=== PATIENT | male | born 1950 | race Caucasian/White ===

== ENCOUNTER 2024-01-30 13:53 | Outpatient (AMB) | payer OTHER, SELFPAY ==
--- NOTE | 2024-01-30 13:58 | MHC.PC.OV ---
Vital Signs 01/30/24 14:01 Height 5 ft 8.27 in Weight 188 lb BMI 28.4 BP 126/60 Blood Pressure Location Rt brachial Position Sitting Respiration 12 Pulse 74 Pulse Source Pulse Oximeter Temp 98.8 F Temp Source Oral Pulse Oximetry (%) 94 Oxygen Delivery Method Room Air Intake Visit Reasons: [employer]ER- Establish care Tobacco use date assessed: 01/30/24 Fall risk assessment: No Falls in past year Last assessed Fall Risk: 01/30/24 Dental Screening Dental Screen Date: 01/30/24 Did you have a dental visit in the last 12 months?: Yes Did you have a dental problem in the last 6 months where you did not have access to dental care?: No Was dental information given to patient?: Patient has dentist HPI HPI Comments History of Present Illness Details This is a 73-year-old male with a past medical history of carotid and vertebral artery stenosis, psoriasis, BPH, JUAN on CPAP, hypertension and hyperlipidemia presenting to transfer from [facility] where he last saw Dr. Albright. Patient endorses fatigue, shortness of breath and mild lightheadedness with exertion over the past year. It has been worse the last couple of months. He says he had COVID-19 in November this year for the 3rd time. It felt like a cold. When he is going up stairs he gets very tired at the top, pants and has mild lightheadedness. It goes away after a few seconds when he stops. Patient says he went to [facility] 09/20/23 after he was working out at the [facility] and was lightheaded and nearly passed out. He said his head went down for a few seconds and when he picked it back up he did not know where he was. He walked to the locker room and then after a few minutes felt back to normal. He contacted his PCP office who directed him to go to the ER. At the hospital he had a CTA which showed moderate stenosis of the right carotid artery and mild stenosis of the left carotid artery and moderate to severe stenosis of the vertebral arteries. He was referred to vascular, but then his insurance changed. Since then he works out, but he avoids that weight machine, and he decreased his weight and avoids cardio. He was started on atorvastatin and baby aspirin. He has not had his lipid profile rechecked since then. He recalls having a negative stress echo a few years ago at [facility]. Occasionally sees mild swelling of his ankles. No palpitations. No cough, wheeze or sputum production. He had a negative chest x-ray at the ER. Nonsmoker. He has a family history of heart disease. Reports PSA within normal during the past 6 months. Colonoscopy up-to-date per patient. No blood in stools, abdominal pain, nausea, vomiting or diarrhea. Tamsulosin works well for BPH. He would like to see if he can stop hydrochlorothiazide. He gets up twice a night to urinate. He is compliant with 50 mg of losartan daily. He monitors blood pressure at home. JUAN-compliant with CPAP. He got a new machine last year. His shipping technician is Dr. Clements. He has an appointment next week. He was told overnight oxygen study was low, and he was prescribed an oxygen machine, but he did not start it because it was never discussed with him. ROS: Constitutional: No unexplained weight loss, fever, chills or night sweats. Eyes: No vision changes, blurry vision, double vision, eye pain, eye redness, eye discharge. ENT: No hearing loss, sneezing, congestion, runny nose or sore throat. Respiratory: see HPI. cough or sputum production. Cardiovascular: No chest pain, chest pressure or chest discomfort. No palpitations. Gastrointestinal: No anorexia, nausea, vomiting or diarrhea. No abdominal pain or blood in stool. Genitourinary: No dysuria, hematuria, urinary frequency. Neurologic: No headache, unilateral weakness, ataxia, numbness or tingling in the extremities. Hematologic/Lymphatics: No bleeding or bruising. Physical exam: Constitutional: Alert, in no distress. Head: Normocephalic. Eyes: Pupils are equal, round and reactive to light. Extraocular muscles intact. Neck: Supple, Full range of motion. No lymphadenopathy. No palpable thyroid masses. Respiratory: Clear to auscultation. Cardiovascular: S1 S2 regular. No murmurs. Gastrointestinal: Abdomen soft, non-tender, non-distended. Normal bowel sounds. No palpable masses. Neurologic: No focal neurological deficits. Extremities: Warm and well perfused. No clubbing, cyanosis or edema. 3+ peripheral pulses bilaterally. Psychiatric: Normal mood and affect [facility] Medical History (Updated 01/30/24 @ 15:12 by CAM Hansen) Lightheaded SMITH (dyspnea on exertion) Seasonal allergic rhinitis due to pollen JUAN on CPAP Psoriasis BPH (benign prostatic hyperplasia) Vertebral artery stenosis Bilateral carotid artery stenosis Pure hypercholesterolemia Essential hypertension Social History Housing: House Patient Tobacco Use Status: Former Tobacco user Cigarette Packs Per Day: 1 Years Smoked: 15 years, hasnt smoked since mid 80s e-Cigarette/Vaping Use: Never Used Second Hand Smoke Exposure: No service: No Current occupational status: retired Cognitive needs: No Hearing needs: No Vision needs: Yes (glasses) Questionnaire AUDIT C Alcohol Use Questionnaire (AUDIT-C) 1. How often do you have a drink containing alcohol?: 4 or more times a week 2. How many drinks containing alcohol do you have on a typical day when you are drinking?: 1 or 2 3. How often do you have six or more drinks on one occasion?: Never Total Score: 4 Physical exam (Primary Care) Vital Signs: Last Vital Signs Temp 98.8 F 01/30/24 14:01 Pulse 74 01/30/24 14:01 Resp 12 01/30/24 14:01 BP 126/60 01/30/24 14:01 Pulse Ox 94 01/30/24 14:01 Oxygen Delivery Method Room Air 01/30/24 14:01 BMI result Body Mass Index 28.4 Tobacco/Smoking Status: Tobacco use Status Tobacco use date assessed 01/30/24 01/30/24 14:05 Patient Tobacco Use Status Former Tobacco user 01/30/24 14:05 e-Cigarette/Vaping Use Never Used 01/30/24 14:05 Office Procedures EKG Details: EKG shows sinus rhythm with first-degree AV block, 61 beats per minute, left axis deviation. Reviewed by [id number], Complete Assessment and Plan Assessment & Plan (1) SMITH (dyspnea on exertion): Code(s): R06.09 - Other forms of dyspnea (2) Essential hypertension: Code(s): I10 - Essential (primary) hypertension (3) Pure hypercholesterolemia: Code(s): E78.00 - Pure hypercholesterolemia, unspecified (4) Bilateral carotid artery stenosis: Code(s): I65.23 - Occlusion and stenosis of bilateral carotid arteries (5) BPH (benign prostatic hyperplasia): Code(s): N40.0 - Benign prostatic hyperplasia without lower urinary tract symptoms Qualifiers: Lower urinary tract symptom presence: symptoms present Lower urinary tract symptom detail: urinary frequency Qualified Code(s): N40.1 - Benign prostatic hyperplasia with lower urinary tract symptoms; R35.0 - Frequency of micturition (6) JUAN on CPAP: Code(s): G47.33 - Obstructive sleep apnea (adult) (pediatric) Plan Dyspnea on exertion, lightheadedness with exertion While carotid artery stenosis might explain lightheadedness it does not explain panting at the top of the steps and decreased stamina. Ordered echocardiogram and nuclear stress test for evaluation. Consider referral to Cardiology pending results. Check labs including BNP and D-dimer. Patient has pulmonology appointment next week. Advised to discuss this with him as well to see if he would like to get PFT done or wait on cardiac testing. Warning signs warranting ER evaluation reviewed including worsening dyspnea, worsening lightheadedness or development of chest pain. Hypertension Stop hydrochlorothiazide. Increase losartan to 75 mg. If blood pressures are above 130/80 increase losartan to 100 mg. Hyperlipidemia LDL goal less than 70. Continue aspirin and atorvastatin. Check fasting lipid profile. Carotid artery stenosis, vertebral artery stenosis Referred to vascular surgeon. Continue statin and baby aspirin. BPH Continue tamsulosin. Follow up in 6 weeks. Orders: Orders Complete Blood Count Auto Diff Today E78.00 - Pure hypercholesterolemia, unspecified, G47.33 - Obstructive sleep apnea (adult) (pediatric), I10 - Essential (primary) hypertension, I65.23 - Occlusion and stenosis of bilateral carotid arteries, N40.0 - Benign prostatic hyperplasia without lower urinary tract symptoms, R06.09 - Other forms of dyspnea Lipid Panel Today E78.00 - Pure hypercholesterolemia, unspecified, G47.33 - Obstructive sleep apnea (adult) (pediatric), I10 - Essential (primary) hypertension, I65.23 - Occlusion and stenosis of bilateral carotid arteries, N40.0 - Benign prostatic hyperplasia without lower urinary tract symptoms, R06.09 - Other forms of dyspnea D Dimer High Sensitivity Today R06.09 - Other forms of dyspnea, R42 - Dizziness and giddiness B Type Natriuretic Peptide Today R06.09 - Other forms of dyspnea, R42 - Dizziness and giddiness AMB EKG-In Office Today R06.09 - Other forms of dyspnea Comprehensive Met. Panel Today E78.00 - Pure hypercholesterolemia, unspecified, G47.33 - Obstructive sleep apnea (adult) (pediatric), I10 - Essential (primary) hypertension, I65.23 - Occlusion and stenosis of bilateral carotid arteries, N40.0 - Benign prostatic hyperplasia without lower urinary tract symptoms, R06.09 - Other forms of dyspnea TSH reflex Free T4 Today E66.9 - Obesity, unspecified, E78.00 - Pure hypercholesterolemia, unspecified, G47.33 - Obstructive sleep apnea (adult) (pediatric), I10 - Essential (primary) hypertension, I65.23 - Occlusion and stenosis of bilateral carotid arteries, N40.0 - Benign prostatic hyperplasia without lower urinary tract symptoms, R06.09 - Other forms of dyspnea CA stress test Today R06.09 - Other forms of dyspnea CA echo transthoracic complete Today R06.09 - Other forms of dyspnea Referrals Vascular Surgery Referral I65.09 - Occlusion and stenosis of unspecified vertebral artery, I65.23 - Occlusion and stenosis of bilateral carotid arteries Coding Level of Care Code New Pt Level 4 (08039) Complex EM visit Add On G2211 Diagnoses SMITH (dyspnea on exertion) R06.09 Essential hypertension I10 Pure hypercholesterolemia E78.00 Bilateral carotid artery stenosis I65.23 Benign prostatic hyperplasia with urinary frequency N40.1; R35.0 Lower urinary tract symptom presence: symptoms present Lower urinary tract symptom detail: urinary frequency JUAN on CPAP G47.33 CPT Codes EKG - CPT: 12297-[id number], Complete ([id number])
[2024-01-30 14:01] VITALS: BP 126/60; PULSE 74; RESP 12; TEMP 37.1; O2SAT 94; BMI 28.4
== END 2024-01-30 15:09 | disposition home or self-care (01) ==
PROVIDERS: PCP Physician Assistant Medical; Visit Provider Physician Assistant Medical
DX: R06.09 Other forms of dyspnea (principal); I10 Essential (primary) hypertension; E78.00 Pure hypercholesterolemia, unspecified; I65.23 Occlusion and stenosis of bilateral carotid arteries; N40.1 Benign prostatic hyperplasia with lower urinary tract symptoms; R35.0 Frequency of micturition; G47.33 Obstructive sleep apnea (adult) (pediatric)
CPT/HCPCS: 93000; 99204; G2211

== ENCOUNTER 2024-02-03 08:33 | Outpatient (REF) | payer OTHER, SELFPAY ==
[2024-02-03 11:10] LABS: MANUAL DIFF FLAG NO
[2024-02-03 11:19] LABS: Basophils Percent Auto 0.5 % (0-2); Eosinophils Absolute Auto 0.2 X10*3/uL (0.0-0.4); Hematocrit 38.6 % (42.0-52.0); Hemoglobin 13.3 g/dl (14.0-18.0); Imm Gran Abs Auto 0.02 X10*3/uL (0.00-0.03); Imm Gran Pct Auto 0.3 % (0.0-0.4); Lymphocytes Percent Auto 33.4 % (20-40); Mean Corpuscular HGB Conc 34.5 g/dl (31.0-36.0); Mean Corpuscular Hemoglobin 31.7 pg (27.0-33.0); Mean Corpuscular Volume 92.1 fL (80.0-98.0); Monocytes Absolute Auto 0.5 X10*3/uL (0.1-1.2); Monocytes Percent Auto 9.1 % (2-11); Neutrophils Absolute Auto 3.2 x10*3/uL (2.0-8.3); Neutrophils Percent Auto 53.7 % (45-73); Platelet Count 210 X10*3/uL (160-400); Red Blood Count 4.19 X10*6/uL (4.60-5.80); Red Cell Distribution Width 13.2 % (11.0-16.0); White Blood Count 5.9 X10*3/uL (4.8-10.8)
[2024-02-03 11:24] LABS: D Dimer High Sensitivity 168 NG/ML
[2024-02-03 11:39] LABS: Alanine Aminotransferase 15 U/L (0-40); Albumin Level 4.1 g/dL (3.5-5.0); Alkaline Phosphatase 62 U/L (39-117); Anion Gap 12 (12-20); Aspartate Amino Transferase 19 U/L (5-37); Bilirubin Total 0.9 mg/dL (0.0-1.0); Blood Urea Nitrogen 19 mg/dL (9-16); Calcium 9.2 mg/dL (8.4-10.2); Carbon Dioxide 26 mmol/L (22-29); Chloride 105 mmol/L (96-108); Cholesterol 164 mg/dL (<200); Estimated Glomerular Filt Rate > 60; Glucose Random 99 mg/dL (60-115); HDL Cholesterol 65 mg/dL (>40); LDL Cholesterol Calculated 82 mg/dL (<100); Potassium 4.2 mmol/L (3.3-5.1); Sodium 139 mmol/L (135-145); Total Protein 6.6 g/dL (6.5-8.0); Triglycerides 86 mg/dL (<150)
[2024-02-03 11:50] LABS: B Type Natriuretic Peptide 65 pg/mL (<100)
[2024-02-03 11:56] LABS: TSH reflex Free T4 2.24 uIU/mL (0.32-4.0)
== END 2024-02-03 08:34 | disposition home or self-care (01) ==
LOC: HO.WFDLDS 08:33
PROVIDERS: Visit Provider Physician Assistant Medical
DX: R06.09 Other forms of dyspnea (principal); I65.23 Occlusion and stenosis of bilateral carotid arteries; E78.00 Pure hypercholesterolemia, unspecified; I10 Essential (primary) hypertension; N40.0 Benign prostatic hyperplasia without lower urinary tract symptoms; G47.33 Obstructive sleep apnea (adult) (pediatric); E66.9 Obesity, unspecified; R42 Dizziness and giddiness
CPT/HCPCS: 36415; 80053; 80061; 83880; 84443; 85025; 85379

== ENCOUNTER 2024-03-11 09:08 | Outpatient (REF) | payer OTHER, SELFPAY ==
[2024-03-11 11:31] LABS: Baso%MD 0.7 %; Eos%MD 2.5 %; Hematocrit 38.6 % (42.0-52.0); Hemoglobin 13.1 g/dl (14.0-18.0); IG%MD 0.2 %; Lymph%MD 27.6 %; Mean Corpuscular HGB Conc 33.9 g/dl (31.0-36.0); Mean Corpuscular Hemoglobin 31.4 pg (27.0-33.0); Mean Corpuscular Volume 92.6 fL (80.0-98.0); Mean Platelet Volume 10.1 fL (9.4-12.4); Mono%MD 7.9 %; Neut%MD 61.1 %; Platelet Count 197 X10*3/uL (160-400); Red Blood Count 4.17 X10*6/uL (4.60-5.80); Red Cell Distribution Width 12.8 % (11.0-16.0); White Blood Count 6.1 X10*3/uL (4.8-10.8)
[2024-03-11 11:53] LABS: Iron 111 mcg/dL (45-160); Percent Iron Saturation 46 % (15-50); Total Iron Binding Capacity 240 mcg/dL (228-428); Unsaturated Iron Binding 129 ug/dL
[2024-03-11 12:06] LABS: Basophils Abs Manual 0.1 X10*3/uL (0.0-0.2); Basophils Percent Manual 2 % (0-2); Eosinophils Absolute Manual 0.2 X10*3/uL (0.0-0.4); Eosinophils Percent Manual 3 % (0-4); Lymphocytes Absolute Manual 1.8 X10*3/uL (1.2-4.9); Lymphocytes Percent Manual 29 % (20-40); Monocytes Absolute Manual 0.2 X10*3/uL (0.1-1.2); Monocytes Percent Manual 4 % (2-11); Neutrophils Percent Manual 62 % (45-73)
[2024-03-11 12:07] LABS: Platelet Estimate NORMAL (NORMAL); Platelet Morphology Comment NORMAL; RBC Morphology NORMAL
[2024-03-11 12:13] LABS: Ferritin 152 ng/mL (20-250)
[2024-03-11 12:25] LABS: Folate 9.3 ng/mL (> or = 4.0); Vitamin B12 431 pg/mL (200-900)
[2024-03-11 12:32] LABS: Band Neutrophils Percent 0 % (3-5); Neutrophils Absolute Manual 3.8 X10*3/uL (2.0-8.3)
== END 2024-03-11 09:09 | disposition home or self-care (01) ==
LOC: HO.WFDLDS 09:08
PROVIDERS: Visit Provider Physician Assistant Medical
DX: D64.9 Anemia, unspecified (principal); Z12.5 Encounter for screening for malignant neoplasm of prostate
CPT/HCPCS: 36415; 82607; 82728; 82746; 83540; 84153; 85007; 85027

== ENCOUNTER 2024-03-23 11:36 | Outpatient (AMB) | payer OTHER, SELFPAY ==
--- NOTE | 2024-03-23 11:45 | MHC.PC.OV ---
Vital Signs 03/23/24 11:47 Height 5 ft 9.88 in Weight 194 lb 4 oz BMI 28.0 BP 130/60 Blood Pressure Location Rt brachial Position Sitting Respiration 12 Pulse 62 Pulse Source Pulse Oximeter Temp 97.7 F Temp Source Tympanic Pulse Oximetry (%) 98 Oxygen Delivery Method Room Air Intake Visit Reasons: follow up SMITH Intake Note: follow uo for SMITH and labs Allergies No Known Allergies Allergy (Verified 03/23/24 11:45) Tobacco use date assessed: 01/30/24 Dental Screening Dental Screen Date: 01/30/24 HPI HPI Comments History of Present Illness Details This is a 73-year-old male with a past medical history of carotid and vertebral artery stenosis, psoriasis, BPH, JUAN on CPAP, hypertension and hyperlipidemia presenting for follow up. When I saw him initially he reported fatigue, shortness of breath and mild lightheadedness with exertion over the past year. Patient says he went to [facility] 09/20/23 after he was working out at the [facility] and was lightheaded and nearly passed out. He said his head went down for a few seconds and when he picked it back up he did not know where he was. He walked to the locker room and then after a few minutes felt back to normal. He contacted his PCP office who directed him to go to the ER. At the hospital he had a CTA which showed moderate stenosis of the right carotid artery and mild stenosis of the left carotid artery and moderate to severe stenosis of the vertebral arteries. He was referred to vascular, but then his insurance changed. I referred him anew, and he has an appointment. He was started on atorvastatin and baby aspirin. I increased his dose of Atorvastatin from 20 mg to 40 mg to target LDL <70. He recalls having a negative stress echo a few years ago at [place]. He says this was ordered due to aching pain in his upper back that only occurs when he starts exerting himself (biking or other exercise). This is still happening. It goes away if he keeps exercising. Occasionally sees mild swelling of his ankles. No palpitations. No cough, wheeze or sputum production. He had a negative chest x-ray at the ER. Nonsmoker. He has a family history of heart disease. He was not contacted to schedule the echo or stress test ordered. We stopped his HCTZ after out appointment due to nocturia. Since doing this, the dizziness, fatigue and mild SMITH resolved with exertion. He did a vigorous hike and symptoms did not return. Labs showed he is mildly anemia. Negative for iron/b12/folate deficiency. Colonoscopy up-to-date per patient. No blood in stools, abdominal pain, nausea, vomiting or diarrhea. He's had pain in the lower back and into the lateral hips for about 6 weeks. Worse with sitting. Better with standing and laying down. He just saw a chiropractor, and it helped after the last visit, but the pain came back. The chiropractor told him it may take up to 6 visits to treat. No trauma or weakness. Tamsulosin works well for BPH. He is compliant with 75 mg of losartan daily. He monitors blood pressure at home. JUAN-compliant with CPAP. He got a new machine last year. His electrolysis operator is Dr. Clements. ROS: Constitutional: No unexplained weight loss, fever, chills or night sweats. Eyes: No vision changes, blurry vision, double vision, eye pain, eye redness, eye discharge. ENT: No hearing loss, sneezing, congestion, runny nose or sore throat. Respiratory: Denies SOB, cough or sputum production. Cardiovascular: No chest pain, chest pressure or chest discomfort. No palpitations. Gastrointestinal: No anorexia, nausea, vomiting or diarrhea. No abdominal pain or blood in stool. Genitourinary: No dysuria, hematuria, urinary frequency. Neurologic: No headache, unilateral weakness, ataxia, numbness or tingling in the extremities. Hematologic/Lymphatics: No bleeding or bruising. Physical exam: Constitutional: Alert, in no distress. Head: Normocephalic. Eyes: Pupils are equal, round and reactive to light. Extraocular muscles intact. Neck: Supple, Full range of motion. No lymphadenopathy. No palpable thyroid masses. Respiratory: Clear to auscultation. Cardiovascular: S1 S2 regular. No murmurs. Gastrointestinal: Abdomen soft, non-tender, non-distended. Normal bowel sounds. No palpable masses. MSK: FROM. No midline spinal tenderness or tenderness to the hips. Negative SLRs. LE strength 5/5 bilaterally. Neurologic: No focal neurological deficits. Extremities: Warm and well perfused. No clubbing, cyanosis or edema. 3+ peripheral pulses bilaterally. Psychiatric: Normal mood and affect [facility] Medical History (Updated 02/04/24 @ 11:16 by CAM Hansen) Mild anemia Lightheaded SMITH (dyspnea on exertion) Seasonal allergic rhinitis due to pollen JUNA on CPAP Psoriasis BPH (benign prostatic hyperplasia) Vertebral artery stenosis Bilateral carotid artery stenosis Pure hypercholesterolemia Essential hypertension Social History Housing: House Patient Tobacco Use Status: Former Tobacco user Cigarette Packs Per Day: 1 Years Smoked: 15 years, hasnt smoked since mid e-Cigarette/Vaping Use: Never Used Second Hand Smoke Exposure: No service: No Current occupational status: retired Cognitive needs: No Hearing needs: No Vision needs: Yes (glasses) Physical exam (Primary Care) Vital Signs: Last Vital Signs Temp 97.7 F 03/23/24 11:47 Pulse 62 03/23/24 11:47 Resp 12 03/23/24 11:47 BP 130/60 03/23/24 11:47 Pulse Ox 98 03/23/24 11:47 Oxygen Delivery Method Room Air 03/23/24 11:47 BMI result Body Mass Index 28.0 Tobacco/Smoking Status: Tobacco use Status Tobacco use date assessed 01/30/24 03/23/24 11:50 Patient Tobacco Use Status Former Tobacco user 03/23/24 11:50 e-Cigarette/Vaping Use Never Used 03/23/24 11:50 Assessment and Plan Assessment & Plan (1) SMITH (dyspnea on exertion): Code(s): R06.09 - Other forms of dyspnea (2) Essential hypertension: Code(s): I10 - Essential (primary) hypertension (3) Pure hypercholesterolemia: Code(s): E78.00 - Pure hypercholesterolemia, unspecified (4) Bilateral carotid artery stenosis: Code(s): I65.23 - Occlusion and stenosis of bilateral carotid arteries (5) BPH (benign prostatic hyperplasia): Code(s): N40.0 - Benign prostatic hyperplasia without lower urinary tract symptoms Qualifiers: Lower urinary tract symptom presence: symptoms present Lower urinary tract symptom detail: urinary frequency Qualified Code(s): N40.1 - Benign prostatic hyperplasia with lower urinary tract symptoms; R35.0 - Frequency of micturition (6) Mild anemia: Code(s): D64.9 - Anemia, unspecified Plan Dyspnea on exertion, lightheadedness with exertion Patient says this resolved aftering stopping HCTZ. Reports history of upper back pain only with exertion. Had stress echo with his last provider at [place]. He is unsure he needs further testing regarding the echo and stress test I ordered, but he agreed to cardiology consult. Referred. Hypertension Continue losartan to 75 mg. Hyperlipidemia LDL goal less than 70. Continue aspirin and atorvastatin. Check fasting lipid profile with labs in 6 weeks. Carotid artery stenosis, vertebral artery stenosis Referred to vascular surgeon. Continue statin and baby aspirin. BPH Continue tamsulosin. Back pain He will continue treatment with the chiropractor, and if this does not resolve he will contact me for imaging orders for lumbar spine and hips. Anemia Mild. Will recheck in 6 weeks. If worsening this will need further evaluation. Request colonoscopy record from [facility]. Follow up in 8 weeks to review labs. Orders: Orders Lipid Panel 6 Weeks D64.9 - Anemia, unspecified, E78.00 - Pure hypercholesterolemia, unspecified, I65.09 - Occlusion and stenosis of unspecified vertebral artery Complete Blood Count Auto Diff Today D64.9 - Anemia, unspecified, E78.00 - Pure hypercholesterolemia, unspecified, I65.09 - Occlusion and stenosis of unspecified vertebral artery Referrals Cardiology Referral E78.00 - Pure hypercholesterolemia, unspecified, I10 - Essential (primary) hypertension, I20.89 - Other forms of angina pectoris, I65.23 - Occlusion and stenosis of bilateral carotid arteries Coding Level of Care Code Est Pt Level 4 (67449) Complex EM visit Add On G2211 Diagnoses SMITH (dyspnea on exertion) R06.09 Essential hypertension I10 Pure hypercholesterolemia E78.00 Bilateral carotid artery stenosis I65.23 Benign prostatic hyperplasia with urinary frequency N40.1; R35.0 Lower urinary tract symptom presence: symptoms present Lower urinary tract symptom detail: urinary frequency Mild anemia D64.9
[2024-03-23 11:47] VITALS: BP 130/60; PULSE 62; RESP 12; TEMP 36.5; O2SAT 98; BMI 28.0
== END 2024-03-23 12:15 | disposition home or self-care (01) ==
PROVIDERS: PCP Physician Assistant Medical; Visit Provider Physician Assistant Medical
DX: R06.09 Other forms of dyspnea (principal); I10 Essential (primary) hypertension; E78.00 Pure hypercholesterolemia, unspecified; I65.23 Occlusion and stenosis of bilateral carotid arteries; N40.1 Benign prostatic hyperplasia with lower urinary tract symptoms; R35.0 Frequency of micturition; D64.9 Anemia, unspecified
CPT/HCPCS: 99214

== ENCOUNTER 2024-04-16 10:26 | Outpatient (REF) | payer MEDICARE, SELFPAY ==
--- NOTE | ~2024-04-16 | XR_ITS ---
EXAMINATION: XR PELVIS AND BILATERAL HIPS XR LUMBOSACRAL SPINE CLINICAL INFORMATION: Pain in right hip, low back pain. COMPARISON: None available. TECHNIQUE: AP view of the pelvis, 2 views of each hip, and 3 views of the lumbar spine. FINDINGS: AP PELVIS AND BILATERAL HIPS: Diffuse demineralization. Advanced degenerative changes in the bilateral hips with medial loss of the joint space, subchondral sclerosis and hypertrophic change, right greater than left. Moderate degenerative changes in bilateral sacroiliac joints. LUMBOSACRAL SPINE: Mild dextroscoliosis of the lumbosacral spine. Facet arthritis in lower lumbar spine. Atherosclerotic aortic calcifications. Multilevel lumbar spondylosis. Moderate loss of disc space height at L4-L5. Cnczygfv-jb-xnbrgb loss of disc space height at L5-S1. XR/XR hip BI w PEL1V IMPRESSION: 1. Advanced degenerative changes of bilateral hips, right greater than left. 2. Multilevel lumbar spondylosis most notable at L4-L5 and L5-S1. 3. Facet arthritis in the lower lumbar spine. 4. Diffuse demineralization. Electronically signed by: Rima Ryan MD 05/13/2024 04:59 AM EDT
--- NOTE | ~2024-04-16 | XR_ITS ---
EXAMINATION: XR PELVIS AND BILATERAL HIPS XR LUMBOSACRAL SPINE CLINICAL INFORMATION: Pain in right hip, low back pain. COMPARISON: None available. TECHNIQUE: AP view of the pelvis, 2 views of each hip, and 3 views of the lumbar spine. FINDINGS: AP PELVIS AND BILATERAL HIPS: Diffuse demineralization. Advanced degenerative changes in the bilateral hips with medial loss of the joint space, subchondral sclerosis and hypertrophic change, right greater than left. Moderate degenerative changes in bilateral sacroiliac joints. LUMBOSACRAL SPINE: Mild dextroscoliosis of the lumbosacral spine. Facet arthritis in lower lumbar spine. Atherosclerotic aortic calcifications. Multilevel lumbar spondylosis. Moderate loss of disc space height at L4-L5. Dzutsolg-ue-xmhqjc loss of disc space height at L5-S1. XR/XR lumbar spine 2-3V IMPRESSION: 1. Advanced degenerative changes of bilateral hips, right greater than left. 2. Multilevel lumbar spondylosis most notable at L4-L5 and L5-S1. 3. Facet arthritis in the lower lumbar spine. 4. Diffuse demineralization. Electronically signed by: Rima Ryan MD 05/13/2024 04:59 AM EDT
[2024-04-16 10:46] LABS: MANUAL DIFF FLAG NO
[2024-04-16 10:59] LABS: Basophils Percent Auto 0.6 % (0-2); Eosinophils Absolute Auto 0.2 X10*3/uL (0.0-0.4); Eosinophils Percent Auto 2.6 % (0-4); Hematocrit 38.5 % (42.0-52.0); Hemoglobin 13.5 g/dl (14.0-18.0); Imm Gran Abs Auto 0.02 X10*3/uL (0.00-0.03); Imm Gran Pct Auto 0.3 % (0.0-0.4); Lymphocytes Absolute Auto 1.5 X10*3/uL (1.2-4.9); Lymphocytes Percent Auto 24.1 % (20-40); Mean Corpuscular HGB Conc 35.1 g/dl (31.0-36.0); Mean Corpuscular Hemoglobin 31.8 pg (27.0-33.0); Mean Corpuscular Volume 90.8 fL (80.0-98.0); Mean Platelet Volume 9.7 fL (9.4-12.4); Monocytes Absolute Auto 0.5 X10*3/uL (0.1-1.2); Monocytes Percent Auto 7.3 % (2-11); Neutrophils Percent Auto 65.1 % (45-73); Platelet Count 193 X10*3/uL (160-400); Red Blood Count 4.24 X10*6/uL (4.60-5.80); Red Cell Distribution Width 13.1 % (11.0-16.0); White Blood Count 6.2 X10*3/uL (4.8-10.8)
[2024-04-16 11:23] LABS: Anion Gap 11 (12-20); Blood Urea Nitrogen 23 mg/dL (9-16); Calcium 9.4 mg/dL (8.4-10.2); Carbon Dioxide 29 mmol/L (22-29); Chloride 106 mmol/L (96-108); Cholesterol 156 mg/dL (<200); Estimated Glomerular Filt Rate > 60; Glucose Random 119 mg/dL (60-115); HDL Cholesterol 62 mg/dL (>40); Iron 111 mcg/dL (45-160); LDL Cholesterol Calculated 80 mg/dL (<100); Percent Iron Saturation 46 % (15-50); Potassium 4.2 mmol/L (3.3-5.1); Sodium 142 mmol/L (135-145); Total Iron Binding Capacity 243 mcg/dL (228-428); Triglycerides 74 mg/dL (<150); Unsaturated Iron Binding 132 ug/dL
[2024-04-16 11:30] LABS: Rheumatoid Factor < 13.0 IU/mL (<15.0)
[2024-04-16 11:46] LABS: Erythrocyte Sedimentation Rate 5 MM/HR (0-15)
[2024-04-16 12:01] LABS: Folate 8.5 ng/mL (> or = 4.0); Vitamin B12 408 pg/mL (200-900)
[2024-04-18 06:34] LABS: Lyme Abs Screen <0.90 index
[2024-04-21 08:14] LABS: Anti Nuclear Antibody Screen NEGATIVE (NEGATIVE)
[2024-04-23 00:59] LABS: VITAMIN D (1,25 OH) D3 39 pg/mL; Vit D (1,25-Dihydroxy) Total 39 pg/mL (18-72); Vitamin D (1,25 OH) D2 <8 pg/mL
== END 2024-04-16 10:27 | disposition home or self-care (01) ==
LOC: HO.LAB 10:26
PROVIDERS: PCP Physician Assistant Medical; Visit Provider Physician Assistant Medical
DX: D64.9 Anemia, unspecified (principal); I65.09 Occlusion and stenosis of unspecified vertebral artery; E78.00 Pure hypercholesterolemia, unspecified; M25.551 Pain in right hip; M25.552 Pain in left hip; M54.50 Low back pain, unspecified
CPT/HCPCS: 36415; 72100; 73521; 80048; 80061; 82550; 82607; 82652; 82746; 83540; 85025; 85652; 86038; 86431; 86617; 86618

== ENCOUNTER 2024-04-23 14:10 | Outpatient (AMB) | payer OTHER, SELFPAY ==
--- NOTE | 2024-04-23 14:18 | MHC.OFFVIS ---
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 Has no complaints. Patient states he had a dizzy spell in September and had an incidental finding on a CT scan. Started blood pressure medication and dizziness went away. 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 At the ER the CTA revealed moderate stenosis of the QIANA (60%) and mild of the LICA (<20%). There was also moderate to severe stenosis of the vertebral arteries. He was referred to vascular at the time; however, his insurance changed as well as his PCP. He has since been discontinued off of the HCTZ he was on for BP (and the dizziness and lightheadedness went away). He was also started on a baby ASA and Atorvastatin 20mg, now increased to 40mg. He is a former smoker, quit >40y but was a 1ppd for appx 15y. He is not a diabetic. He does use CPAP nightly for JUAN and is followed by Pulmonology. He does stay active but has been having low back pain radiating down his right leg which has hindered his activity. He denies any lightheadedness, dizziness, weakness, stroke-like symptoms. [facility] Medical History Bilateral hip pain Low back pain Mild anemia Lightheaded SMITH (dyspnea on exertion) Seasonal allergic rhinitis due to pollen JUAN on CPAP Psoriasis BPH (benign prostatic hyperplasia) Vertebral artery stenosis Bilateral carotid artery stenosis Pure hypercholesterolemia Essential hypertension Social History Housing: House Patient Tobacco Use Status: Former Tobacco user Cigarette Packs Per Day: 1 Years Smoked: 15 years, hasnt smoked since mid s e-Cigarette/Vaping Use: Never Used Second Hand Smoke Exposure: No service: No Current occupational status: retired Cognitive needs: No Hearing needs: No Vision needs: Yes (glasses) Review of Systems Const Reports as per HPI and Denies weakness ENT Reports Normal hearing present and Denies dizziness Card Reports as per HPI, Denies chest pain, Denies chest pain at rest, Denies chest pain with activity, Denies dyspnea and Denies dyspnea on exertion Resp Reports as per HPI, Denies cough, Denies dyspnea and Denies dyspnea on exertion GI Reports as per HPI, Denies abdominal pain, Denies nausea and Denies vomiting Musc Denies numbness Skin/Breast Reports as per HPI, Denies erythema and Denies wounds Neuro Reports Normal hearing present, Denies dizziness, Denies numbness, Denies Sensory deficit (Neuro) and Denies weakness Psych Reports no additional complaints Endo Reports no additional complaints Physical Exam Const General: healthy appearing and no acute distress Orientation/consciousness: patient oriented x3 HEENT Head: Yes normal to inspection Ears: hearing grossly normal bilaterally Mouth: Normal oral and palatal mucosa present Resp Effort & Inspection: normal respiratory effort and able to speak in complete sentences Auscultation: clear to auscultation bilaterally Cardio Jugular venous distension: no JVD Rate: regular rate Rhythm: regular rhythm Heart sounds: S1 normal heart sound present and S2 normal heart sound present Bruits: no abdominal aortic bruits, no carotid bruits, no femoral bruits and no renal bruits Peripheral pulses: Peripheral pulses 2+ throughout GI Inspection: Yes normal to inspection Palpation (GI): No Abdominal aortic bruit present Skin General skin exam: no rashes or lesions noted Wounds: no wounds Hair: normal Neuro General: patient oriented x3 Cranial nerves: Yes CN's II-XII intact bilaterally and Yes Normal hearing present Cognition (Neuro): normal cognition Gait exam (Neuro): Normal gait present Motor exam (neuro): 5/5 motor strength present throughout Sensory Exam: No Sensory deficit (Neuro) Extrem General: Yes normal to inspection, Yes full ROM, Yes capillary refill normal and Yes normal gait Assessment & Plan Assessment & Plan (1) Bilateral carotid artery stenosis: Code(s): I65.23 - Occlusion and stenosis of bilateral carotid arteries Category: Medical Plan Leonel was seen today after being referred by his PCP Beatris Ayers with concerns of bilateral carotid artery stenosis. He had a near syncopal episode while working out on 09/20/23; he was bending down and became very lightheaded. A CTA at the ER revealed moderate stenosis of the QIANA and mild stenosis of the LICA with moderate to severe stenosis of the vertebral arteries. He was referred to Vascular but had changes in Insurance and PCP and it was not completed. He has since not had any issues with dizziness or lightheadedness since his PCP changed his BP medication (HCTZ to Losartan). He currently remains on a baby ASA daily. He is currently off of the statin; he has some myalgias and the PCP is making sure the statin is not causing the myalgias; he has only been off of the statin for 3d. He will reach out to her in 4d and they will decide to get back on the statin or discontinue it. We discussed the importance of physical activity; at this point he continues to have LBP with radiation down his right leg, he goes for an MRI next week. He states he has not been able to walk/work out like he usually can. We discussed the importance of diet and physical activity. We discussed that we will order a duplex US of bilateral carotids for further imaging. We will then follow up with him in the office 1-2w after. Thank you for allowing us to assist in his care. If there are any questions or concerns, please do not hesitate to contact us. Orders: Orders US carotid duplex BI 1 Week I65.23 - Occlusion and stenosis of bilateral carotid arteries Coding Level of Care Code New Pt New Pt Level 4 (30291) Patient Type New Diagnoses Bilateral carotid artery stenosis I65.23 Time Spent (min) 40
== END 2024-04-23 14:50 | disposition home or self-care (01) ==
PROVIDERS: PCP Physician Assistant Medical; Visit Provider Physician Assistant Surgical
DX: I65.23 Occlusion and stenosis of bilateral carotid arteries (principal)
CPT/HCPCS: 99204

== ENCOUNTER → 2024-04-23 14:10 | Outpatient (BNVA) | payer OTHER, SELFPAY | PROVIDERS: PCP Physician Assistant Medical; Visit Provider Surgery Vascular Surgery ==

== ENCOUNTER 2024-04-29 07:51 | Outpatient (REF) | payer OTHER, SELFPAY ==
--- NOTE | ~2024-04-29 | MR_ITS ---
EXAMINATION: MR LUMBAR SPINE WITHOUT CONTRAST CLINICAL INFORMATION: Low back pain COMPARISON: Number spine x-ray on 04/16/2024 TECHNIQUE: MRI of the lumbar spine was obtained using routine sequences without contrast. FINDINGS: The visualized lumbar vertebrae are intact with normal alignment. No focal bone lesion with abnormal signal can be seen. Evaluation of the intervertebral discs show: T12/L1: Intervertebral disc height is normal, with normal T2 signal. No focal disc herniation is seen. Bilateral T12/L1 neuroforamina are patent. Bilateral apophyseal joints are intact with normal alignment. L-1/L-2: Intervertebral disc height is normal, with normal T2 signal. No focal disc herniation is seen. Bilateral L1-L2 neuroforamina are patent. Bilateral apophyseal joints are intact with normal alignment. L2/L3: Intervertebral disc height is normal, with normal T2 signal. No focal disc herniation is seen. Bilateral L2-L3 neuroforamina are patent. Bilateral apophyseal joints are intact with normal alignment. L3/L4: Intervertebral disc height is normal, with moderate loss of T2 signal. There is mild asymmetric left posterior disc protrusion is seen. Bilateral L3-L4 neuroforamina are patent. Bilateral apophyseal joints are intact with normal alignment. L4/L5: Intervertebral disc height is moderately decreased, with moderate loss of T2 signal. Marked posterior and right foraminal disc protrusion is seen. There is moderate asymmetric right L4-L5 neural foraminal stenosis. There is severe spinal stenosis due to additional impingement by hypertrophic ligamentum flavum. Bilateral apophyseal joints are intact with normal alignment. A large epidural space occupying lesion is seen completely effacing the right lateral recess along right posterior border of L4 extending from L4-L5 junction down to L5-S1 junction, measuring 1.0 cm in AP diameter, 1.7 cm in width, 3.7 cm in vertical height. L5/S1: Intervertebral disc height is markedly decreased, with mild loss of T2 signal. Mild posterior disc protrusion is seen. Bilateral L5-S1 neuroforamina are patent. Bilateral apophyseal joints are intact with normal alignment. Conus medullaris is seen normally at L1 level. MR/MR lumbar spine wo con IMPRESSION: 1. Severe spinal stenosis at L4-L5 due to marked posterior and right foraminal disc protrusion and impingement by hypertrophic ligamentum flavum. 2. A large epidural space occupying lesion is seen completely effacing the right lateral recess along right posterior border of L4. Findings could represent large extruded disc fragment or epidural tumor such as meningioma or metastatic tumor. Further evaluation with contrast-enhanced MRI of lumbar spine is recommended. 3. Moderate asymmetric right L4-L5 neural foraminal stenosis. 4. Moderate degenerative disc disease at L3-L4 and L5-S1, mild asymmetric left posterior L3-L4 disc protrusion. Electronically signed by: Maryjo Mcadams MD 05/25/2024 10:53 AM EST
[2024-04-29 09:11] LABS: D Dimer High Sensitivity 205 NG/ML
== END 2024-04-29 07:52 | disposition home or self-care (01) ==
LOC: HO.MRI 07:51
PROVIDERS: PCP Physician Assistant Medical; Visit Provider Physician Assistant Medical
DX: M54.50 Low back pain, unspecified (principal); M48.061 Spinal stenosis, lumbar region without neurogenic claudication
CPT/HCPCS: 36415; 72148; 82550; 85379

== ENCOUNTER 2024-05-05 10:16 | Outpatient (REF) | payer MEDICARE, SELFPAY ==
--- NOTE | ~2024-05-05 | US_ITS ---
EXAMINATION: US EXTRACRANIAL CAROTID DUPLEX, BILATERAL CLINICAL INFORMATION: Carotid stenosis COMPARISON: None available. TECHNIQUE: Real-time ultrasound and Doppler techniques (integrating B-mode 2-D vascular images, Doppler spectral analysis and color-flow Doppler imaging) were utilized to interrogate the extracranial carotid arteries, the vertebral arteries and proximal subclavian arteries bilaterally. The degree of stenosis is determined by criteria similar to NASCET. FINDINGS: Right Side: 1. There is mild to moderate atherosclerotic plaque seen in the bifurcation/proximal ICA region. 2. The common carotid artery PSV proximally is 102 cm/s and distally 91.5 cm/s. 3. The proximal internal carotid artery velocities are 77.8 cm/s systolic and 8 cm/s diastolic. 4. The proximal external carotid artery PSV is 221 cm/s. 5. The vertebral artery shows antegrade flow. 6. The subclavian artery waveforms are normal. Left Side: 1. There is mild to moderate atherosclerotic plaque seen in the bifurcation/proximal ICA region. 2. The common carotid artery PSV proximally is 138 cm/s and distally 127 cm/s. 3. The proximal internal carotid artery velocities are 92.0 cm/s systolic and 19.9 cm/s diastolic. 4. The proximal external carotid artery PSV is 200 cm/s. 5. The vertebral artery shows antegrade flow. 6. The subclavian artery waveforms are normal. US/US carotid duplex BI IMPRESSION: 1. RIGHT: Minimal, non-hemodynamically significant stenosis of the proximal right internal carotid artery corresponding to a 0-49% stenosis by velocity criteria. 2. LEFT: Minimal, non-hemodynamically significant stenosis of the proximal left internal carotid artery corresponding to a 0-49% stenosis by velocity criteria. Electronically signed by: Edi Rico MD 05/13/2024 10:18 AM EDT
== END 2024-05-05 10:17 | disposition home or self-care (01) ==
LOC: HO.US 10:16
PROVIDERS: PCP Physician Assistant Medical; Visit Provider Physician Assistant Surgical
DX: I65.23 Occlusion and stenosis of bilateral carotid arteries (principal)
CPT/HCPCS: 93880

== ENCOUNTER 2024-05-18 15:11 | Outpatient (AMB) | payer MEDICARE, SELFPAY ==
--- NOTE | 2024-05-18 15:06 | A.OFFPC_ITS ---
Intake Visit Reasons: review labs / cholesterol med FU Intake Note: Follow up labs Biometrician Required: No Allergies No Known Allergies Allergy (Verified 05/18/24 15:06) Tobacco use date assessed: 01/30/24 Dental Screening Dental Screen Date: 01/30/24 [facility] HPI Comments History of Present Illness Details This is a 73-year-old male with a past medical history of JUAN on CPAP, psoriasis, BPH, vertebral artery stenosis, bilateral carotid artery stenosis, hyperlipidemia and hypertension presenting to follow up on his results. The patient continues to have numbness in his right foot, pain in his right calf and some hip and back pain though it is significantly improved since taking NSAIDs and stopping atorvastatin due to elevated creatinine kinase. After he stopped taking the medication creatinine kinase decreased from 214-175 with normal being 174 U/L. D-dimer is negative. Lyme, RF, LUIS FERNANDO, vitamin-D also normal 04/16/2024. He is taking meloxicam 15 mg in the morning and 2 [id number] naproxen pills at night. We discussed his x-rays which showed advanced bilateral hip arthritis worse on the right than the left and multilevel degenerative changes in the spine with loss of the disc height at L5-S1 and L4- L5. Patient had an MRI of the lumbar spine done, but Radiology is back logged so the report is not available yet. He would like to see [facility] about the hip arthritis. The x-rays also showed demineralization of the bones, and he is agreeable to bone density exam. He has an appointment with vascular surgery next week. He is currently off atorvastatin. He is still taking a baby aspirin. Patient reports he has been on tamsulosin since he was a patient at [facility] for BPH. I asked if he has had a prostate exam, and he says that he has not, and he has not seen Urology. He has urinary frequency, urgency, nocturia which improved after stopping his thiazide diuretic. He will also have this sensation of bladder fullness and incomplete emptying. ROS: Constitutional: No unexplained weight loss, fever, chills, fatigue or night sweats. Gastrointestinal: No nausea, vomiting, diarrhea or abdominal pain Genitourinary: No dysuria, hematuria or pelvic pain. Neurologic: No loss of bowel or bladder control, footdrop or weakness Musculoskeletal: see [facility] Medical History Bilateral hip pain Low back pain Mild anemia Lightheaded SMITH (dyspnea on exertion) Seasonal allergic rhinitis due to pollen JUAN on CPAP Psoriasis BPH (benign prostatic hyperplasia) Vertebral artery stenosis Bilateral carotid artery stenosis Pure hypercholesterolemia Essential hypertension Social History Housing: House Patient Tobacco Use Status: Former Tobacco user Cigarette Packs Per Day: 1 Years Smoked: 15 years, hasnt smoked since mid s e-Cigarette/Vaping Use: Never Used Second Hand Smoke Exposure: No service: No Current occupational status: retired Cognitive needs: No Hearing needs: No Vision needs: Yes (glasses) Physical exam (Primary Care) Tobacco/Smoking Status: Tobacco use Status Tobacco use date assessed 01/30/24 05/18/24 15:08 Patient Tobacco Use Status Former Tobacco user 05/18/24 15:08 e-Cigarette/Vaping Use Never Used 05/18/24 15:08 Telehealth Telehealth Telehealth Platform: Telephone Location of provider rendering services: practice address Location of patient: address on file Patient Identification confirmed using: Name, : Yes Telehealth method: voice only Patient verbally consented to treatment: Yes Patient verbally consented to billing insurance company: Yes Patient informed of any privacy concerns related to visit: Yes Minutes spent on Phone/Video with Pt.: 15 Coding Level of Care Code Tele Est Pt Level 4 (00312) Diagnoses Pure hypercholesterolemia E78.00 Bilateral carotid artery stenosis I65.23 Benign prostatic hyperplasia with urinary frequency N40.1; R35.0 Lower urinary tract symptom presence: symptoms present Lower urinary tract symptom detail: urinary frequency Low back pain M54.50 Bilateral primary osteoarthritis of hip M16.0 Assessment & Plan Assessment & Plan (1) Pure hypercholesterolemia: Code(s): E78.00 - Pure hypercholesterolemia, unspecified Category: Medical (2) Bilateral carotid artery stenosis: Code(s): I65.23 - Occlusion and stenosis of bilateral carotid arteries Category: Medical (3) BPH (benign prostatic hyperplasia): Code(s): N40.0 - Benign prostatic hyperplasia without lower urinary tract symptoms Category: Medical Qualifiers: Lower urinary tract symptom presence: symptoms present Lower urinary tract symptom detail: urinary frequency Qualified Code(s): N40.1 - Benign prostatic hyperplasia with lower urinary tract symptoms; R35.0 - Frequency of micturition (4) Low back pain: Code(s): M54.50 - Low back pain, unspecified Category: Medical (5) Bilateral primary osteoarthritis of hip: Code(s): M16.0 - Bilateral primary osteoarthritis of hip Category: Medical Plan I recommended a trial of rosuvastatin in place of atorvastatin and monitoring for side effects. Patient would like to wait until he sees vascular surgery next week which is reasonable. Continue baby aspirin and recommended Mediterranean diet and avoidance of smoking and alcohol. I ordered a bone density exam to assess for possible osteopenia and osteoporosis given findings on x-ray. Patient can stop tamsulosin and try alfuzosin ER 10 mg daily. Side effects reviewed with the patient. Referred to Urology at [facility]. Advised patient to stop taking meloxicam in the morning and take naproxen twice daily instead with food. Recent renal function tests normal. Side effects reviewed with the patient. Refer to [facility] for bilateral osteoarthritis of the hips. We discussed referral to relations specialist/PT once MRI result is available. Orders: Orders XR DEXA axial skeleton Today M85.80 - Other specified disorders of bone density and structure, unspecified site Referrals Orthopedics Referral M16.0 - Bilateral primary osteoarthritis of hip Urology Referral N40.1 - Benign prostatic hyperplasia with lower urinary tract symptoms, R35.0 - Frequency of micturition Medications: New alfuzosin ER Replaces Tamulosin. Administer after the same meal each day 10 mg PO DAILY 9 0 tabs 0RF Discontinued meloxicam Discontinued Reason: Doctor's Order 15 mg PO DAILY 30 tabs 0RF
== END 2024-05-18 16:43 | disposition home or self-care (01) ==
LOC: HO.HMCFM 15:12
PROVIDERS: PCP Physician Assistant Medical; Visit Provider Physician Assistant Medical
DX: E78.00 Pure hypercholesterolemia, unspecified (principal); I65.23 Occlusion and stenosis of bilateral carotid arteries; N40.1 Benign prostatic hyperplasia with lower urinary tract symptoms; R35.0 Frequency of micturition; M54.50 Low back pain, unspecified; M16.0 Bilateral primary osteoarthritis of hip

== ENCOUNTER 2024-05-26 09:22 | Outpatient (AMB) | payer MEDICARE, SELFPAY ==
--- NOTE | 2024-05-26 09:24 | MHC.OFFVIS ---
Vital Signs 05/26/24 09:25 05/26/24 09:29 Height 5 ft 9 in Weight 194 lb 4 oz BMI 28.7 BP 132/80 132/78 Blood Pressure Location Lt brachial Rt brachial Position Sitting Intake Visit Reasons: follow up s/p Carotid US 05/05/24 Intake Note: Leonel is a 73 year old male who presents to the office today for a follow up s/p Carotid US 05/05/24. Pt states he is overall feeling well and denies any concerns at this time. Allergies No Known Allergies Allergy (Verified 05/26/24 09:25) HPI HPI follow up s/p Carotid US 05/05/24: Details: Leonel is presenting today as a follow-up to his carotid ultrasound, performed on 05/05. He initially was seen due to dizziness/syncope and CTA in the ER revealed moderate stenosis of the QIANA and LICA. He states he has been doing much better and has not had any incidents of dizziness/lightheadedness/syncope. He is back to the gym regularly. He continues on ASA daily but is not on a statin (due to myagias). He continues with LBP and recently had an MRI, which revealed a pinched nerve and other things, per the pt. He will be following up with Dr Hernandes. [facility] Medical History (Updated 05/25/24 @ 17:14 by CAM Hansen) Lumbar spinal stenosis Spinal cord lesion Bilateral primary osteoarthritis of hip Bilateral hip pain Low back pain Mild anemia Lightheaded SMITH (dyspnea on exertion) Seasonal allergic rhinitis due to pollen JUAN on CPAP Psoriasis BPH (benign prostatic hyperplasia) Vertebral artery stenosis Bilateral carotid artery stenosis Pure hypercholesterolemia Essential hypertension Social History Housing: House Patient Tobacco Use Status: Former Tobacco user Cigarette Packs Per Day: 1 Years Smoked: 15 years, hasnt smoked since mid 80s e-Cigarette/Vaping Use: Never Used Second Hand Smoke Exposure: No service: No Current occupational status: retired Cognitive needs: No Hearing needs: No Vision needs: Yes (glasses) Review of Systems Const Reports as per HPI and Denies weakness ENT Reports Normal hearing present and Denies dizziness Card Reports as per HPI, Denies chest pain, Denies chest pain at rest, Denies chest pain with activity, Denies dyspnea and Denies dyspnea on exertion Resp Reports as per HPI, Denies cough, Denies dyspnea and Denies dyspnea on exertion GI Reports as per HPI, Denies abdominal pain, Denies nausea and Denies vomiting Musc Denies numbness Skin/Breast Reports as per HPI, Denies erythema and Denies wounds Neuro Reports Normal hearing present, Denies dizziness, Denies numbness, Denies Sensory deficit (Neuro) and Denies weakness Psych Reports no additional complaints Endo Reports no additional complaints Physical Exam Vital Signs: Last Vital Signs BP 132/78 05/26/24 09:29 BMI result Body Mass Index 28.7 Const General: healthy appearing and no acute distress Orientation/consciousness: patient oriented x3 HEENT Head: Yes normal to inspection Ears: hearing grossly normal bilaterally Mouth: Normal oral and palatal mucosa present Resp Effort & Inspection: normal respiratory effort and able to speak in complete sentences Auscultation: clear to auscultation bilaterally Cardio Jugular venous distension: no JVD Rate: regular rate Rhythm: regular rhythm Heart sounds: S1 normal heart sound present and S2 normal heart sound present Bruits: no abdominal aortic bruits, no carotid bruits, no femoral bruits and no renal bruits Peripheral pulses: Peripheral pulses 2+ throughout GI Inspection: Yes normal to inspection Palpation (GI): No Abdominal aortic bruit present Skin General skin exam: no rashes or lesions noted Wounds: no wounds Hair: normal Neuro General: patient oriented x3 Cranial nerves: Yes Normal hearing present Cognition (Neuro): normal cognition Gait exam (Neuro): Normal gait present Motor exam (neuro): 5/5 motor strength present throughout Sensory Exam: No Sensory deficit (Neuro) Extrem General: Yes normal to inspection, Yes full ROM, Yes capillary refill normal and Yes normal gait Results Reviewed Results Reviewed: Bilateral Carotid US: Right - minimal, non-hemodynamically significant stenosis of the proximal QIANA corresponding to a 0-49% stenosis by velocity criteria Left - minimal, non-hemodynamically significant stenosis of the proximal LICA corresponding to a 0-49% stenosis by velocity criteria Assessment & Plan Assessment & Plan (1) Bilateral carotid artery stenosis: Code(s): I65.23 - Occlusion and stenosis of bilateral carotid arteries Category: Medical Plan: Meals presenting today for follow up to his carotid ultrasound on May 05. He remains asymptomatic. He states he has not had any episodes of dizziness, lightheadedness, or syncopal episodes. He states he is back to the gym regularly and is eating a healthy well-balanced diet. He continues on his daily aspirin. He is unable to tolerate statins due to myalgias. He states his last cholesterol levels included a total cholesterol of 165, LDL at the 80, and HDL at over 50. We discussed continuing the well-balanced diet and physical activity. It will be up to his primary care about adding a cholesterol-lowering medication; however, his levels appear within normal limits at this point. We reviewed the results of the carotid ultrasound which revealed minimal stenosis at 0-49%. At this point, we will follow up with him in 1 year. We will order a follow up ultrasound and see him in the office after that. He does have a significant amount of other medical problems at this point which he states he would like to get taken care of. He is in agreement of the 1 year follow-up; we initially discussed a six-month follow up but asked if he could push it out to a year. We discussed signs and symptoms of stroke and if he had any other concerns with dizziness or lightheadedness, he can reach out to us at any point. If there are any questions or concerns, please do not hesitate to reach out to us. Orders: Orders US carotid duplex BI 1 Year I65.23 - Occlusion and stenosis of bilateral carotid arteries Coding Level of Care Code Established Pt Est Pt Level 4 (38658) Patient Type Established Diagnoses Bilateral carotid artery stenosis I65.23 Comment Review of recent carotid ultrasound
[2024-05-26 09:25] VITALS: BP 132/80; BMI 28.7
[2024-05-26 09:29] VITALS: BP 132/78
== END 2024-05-26 09:53 | disposition home or self-care (01) ==
PROVIDERS: PCP Physician Assistant Medical; Visit Provider Physician Assistant Surgical
DX: I65.23 Occlusion and stenosis of bilateral carotid arteries (principal)
CPT/HCPCS: 99214

== ENCOUNTER → 2024-05-26 09:22 | Outpatient (BNVA) | payer MEDICARE, SELFPAY | PROVIDERS: PCP Physician Assistant Medical; Visit Provider Physician Assistant Surgical | DX: I65.23 Occlusion and stenosis of bilateral carotid arteries (principal) | CPT/HCPCS: 99212 ==

== ENCOUNTER 2024-05-27 12:30 | Outpatient (AMB) | payer MEDICARE, SELFPAY ==
--- NOTE | 2024-05-27 12:51 | A.SPINEOV_ITS ---
Intake Visit Reasons: Urgent referral Intake Note: Mr. Chisholm is here today c/o right ankle and leg numbness. Media Specialist Required: No Allergies No Known Allergies Allergy (Verified 05/27/24 12:55) Assessment & Plan Assessment & Plan (1) Lumbar radiculopathy: Code(s): M54.16 - Radiculopathy, lumbar region Category: Medical Plan Dear CAM Ayers, Thank you for referring Leonel to our office today. He is a pleasant 73-year-old male who comes in today with a chief complaint of pain and numbness in his right lateral calf and the top of his right foot. In addition to this he reports some muscle weakness in the right calf, which he feels has been present since onset. He identifies an initial inciting incident on April 05 of leaning over his sink. He began experience severe low back pain. As the back pain began to subside he developed right foot and ankle numbness/weakness, accompanied by some right ankle pain. This has only partially restricted him in regards to ADLs and functionality. He finds it somewhat more difficult to walk and he is somewhat limited meaningful activities such as golfing. He currently takes naproxen for his pain. He is not taking any prescription medications for his pain. He has been to a chiropractor since this began, but felt it was only modestly helpful. He has not yet attempted physical therapy, and has not had cortisone injections. He denies any numbness/tingling in the perineum, and denies any bowel/bladder incontinence. PMH: Hypertension, BPH. History of carotid artery stenosis, reportedly resolved with statin use. Still takes 81 mg baby aspirin daily. Social hx: Patient does not smoke, reports no substance use. Medications: Losartan, alfuzosin, 81 mg baby aspirin. Allergies: NKDA. Physical exam: The patient has 2/5 strength with his right EHL. He has about 4/5 strength with right-sided dorsiflexion. The rest of his bilateral strength in his upper and lower extremities is 5/5. His reflexes are slightly hyperactive in his upper and lower extremities. (+) right-sided straight leg raise. (-) left-sided straight leg raise. (-) clonus, (-) Babinski's, (-) Barrett's. Imaging review: MRI of the lumbar spine completed here at [facility] shows a large posterior disc herniation at L4-5 migrating inferiorly towards the L5-S1 disc space. This is causing severe bilateral foraminal stenosis and central canal stenosis at L4 and severe central canal and right- sided foraminal stenosis at L5. Impression: Leonel is a pleasant 73-year-old male who comes in today with a chief complaint of right-sided calf/foot numbness and weakness with a intermittent pain component. He was evaluated alongside Dr. Hernandes today. His back pain has resolved since the initial inciting incident stated above which likely was the origin of his disc herniation. We have very low suspicion that this is a cancerous mass or growth. Instead we believe it is just a large disc herniation that has migrating inferiorly. Dr. Hernandes offered the patient a right-sided L4-5 microdiskectomy for removal of large disc herniation compressing the L4 and L5 nerves. We extensively discussed the likely outcomes of surgery including the potential for continued numbness/tingling/weakness despite surgical in terventions to help relieve pressure off of the nerve. We also discussed the limitations of conservative treatment to address this issue. He was educated on red flag symptoms such as perineal numbness and bowel/bladder incontinence which would warrant an immediate call to our office & a trip to the emergency department. After reviewing everything the patient would like to proceed with surgery. He is tentatively scheduled for June 18. Leonel was given risk and benefits of surgery including but not limited to infection, hematoma, nerve injury, durotomy, weakness, bowel/bladder injury, pe rsistent pain, as well as the option to continue with conservative treatment and patient wishes to proceed with surgery. They are aware they should stop NSAIDs 7 days prior to surgery. All questions were answered to the best of our ability. If there is anything about this patients medical history that we have overlooked or concerns you have about us proceeding with surgery we would appreciate any input you can offer. Thank you for allowing us to care for your patient. The total time spent with this visit with this patient was 45 minutes reviewing history, physical exam, MRI imaging review, and implementation of treatment plan or further diagnostic testing Darci Hernandes MD,PhD [facility] Coding Level of Care Code New Pt Level 4 (38091) Diagnoses Lumbar radiculopathy M54.16
== END 2024-05-27 14:00 | disposition home or self-care (01) ==
PROVIDERS: PCP Physician Assistant Medical; Referring Provider Physician Assistant Medical; Visit Provider Physician Assistant
DX: M54.16 Radiculopathy, lumbar region (principal)
CPT/HCPCS: 99204

== ENCOUNTER → 2024-05-27 12:30 | Outpatient (BNVA) | payer MEDICARE, SELFPAY | PROVIDERS: PCP Physician Assistant Medical; Referring Provider Physician Assistant Medical; Visit Provider Physician Assistant | DX: M54.16 Radiculopathy, lumbar region (principal) | CPT/HCPCS: 99202 ==

== ENCOUNTER 2024-06-22 10:26 | Outpatient (AMB) | payer MEDICARE, SELFPAY ==
--- NOTE | 2024-06-22 10:35 | MHC.OFFVIS ---
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 He has been experiencing back pain with some neurological symptoms in legs. He is being considered for minimally invasive surgery by Dr. Hernandes. He has known history of carotid stenosis and is currently asymptomatic from that. He is on baby aspirin. He has not tolerated statins at high dose in the past with myalgias. He is getting some upper back discomfort with activity and starts getting upper back discomfort when he exercises. He is saying that if he continues to exercise the pain goes away. Previously had stress testing few years ago at [facility] which reportedly was normal. He is on losartan 75 mg daily and blood pressure is mildly elevated. [facility] Medical History (Updated 06/22/24 @ 11:06 by Kenrick Tang MD) Numbness Osteoarthritis Former cigarette smoker Upper back pain Lumbar spinal stenosis Spinal cord lesion Bilateral primary osteoarthritis of hip Bilateral hip pain Low back pain Mild anemia Lightheaded SMITH (dyspnea on exertion) Seasonal allergic rhinitis due to pollen JUAN on CPAP Psoriasis BPH (benign prostatic hyperplasia) Vertebral artery stenosis Bilateral carotid artery stenosis Pure hypercholesterolemia Essential hypertension Surgical History Hx of bilateral inguinal hernia repair (~2019) Hx of colonoscopy Family History Father Cancer Heart attack Mother High blood pressure Social History (Updated 06/22/24 @ 10:48 by Belinda Cooper CMA) Household Members: Spouse Housing: House Are you a primary child care lead teacher to a significant other at home: No Do you presently have visiting nurse or other home services: No Alcohol intake: current Alcohol intake frequency: holidays/special occasions only Patient Tobacco Use Status: Former Tobacco user Cigarette Packs Per Day: 1 Years Smoked: 15 years, hasn't smoked since mid e-Cigarette/Vaping Use: Never Used Second Hand Smoke Exposure: No service: No Current occupational status: retired Cognitive needs: No Hearing needs: No Vision needs: Yes (glasses) Review of Systems Const Denies chills, Denies fatigue, Denies fever(s), Denies frequent falls, Denies weakness, Denies weight gain and Denies weight loss ENT Denies dizziness Card Denies chest pain, Denies leg edema, Denies lightheadedness, Denies palpitations, Denies dyspnea, Denies dyspnea on exertion and Denies orthopnea Resp Denies cough, Denies dyspnea and Denies dyspnea on exertion GI Denies bloating and Denies change in bowel habits Musc Denies muscle weakness, Denies numbness and Denies tingling Neuro Denies dizziness, Denies frequent falls, Denies numbness, Denies tingling and Denies weakness Endo Denies fatigue and Denies palpitations Physical Exam Vital Signs: Last Vital Signs Pulse 66 06/22/24 10:41 BP 140/70 H 06/22/24 10:41 GENERAL APPEARANCE: in no acute distress, pleasant. NECK: Bilateral carotid bruits, no jugular venous distention. SKIN: no suspicious lesions, warm and dry. HEART: no murmurs, regular rate and rhythm. LUNGS: clear to auscultation bilaterally. ABDOMEN: soft, nontender. EXTREMITIES: no edema. PERIPHERAL PULSES: equal. NEUROLOGIC: No gross deficits, AAO X 3 Assessment & Plan Assessment & Plan (1) Preop cardiovascular exam: Code(s): Z01.810 - Encounter for preprocedural cardiovascular examination Category: Medical (2) Bilateral carotid artery stenosis: Code(s): I65.23 - Occlusion and stenosis of bilateral carotid arteries Category: Medical Plan [age] year gentleman who is here for perioperative cardiac risk assessment. He has bilateral carotid stenosis. He is stable from carotid stenosis viewpoint. He is on baby aspirin. I have advised him that he should try Crestor at low dose once a week. If he can not tolerate it then we can change it to 3 times a week and eventually once a day. Given upper back discomfort with activity I have advised him to do an exercise stress test. We will also do an echocardiogram. Thank you for allowing me to participate in the care of your patient. Please feel free to contact me if you have any questions. Orders: Orders CA echo transthoracic complete Today Z01.810 - Encounter for preprocedural cardiovascular examination CA stress test Today Z01.810 - Encounter for preprocedural cardiovascular examination Coding Level of Care Code New Pt Level 4 (63053) Diagnoses Preop cardiovascular exam Z01.810 Bilateral carotid artery stenosis I65.23
[2024-06-22 10:41] VITALS: BP 140/70; PULSE 66
== END 2024-06-22 11:07 | disposition home or self-care (01) ==
PROVIDERS: PCP Physician Assistant Medical; Visit Provider Internal Medicine Cardiovascular Disease
DX: Z01.810 Encounter for preprocedural cardiovascular examination (principal); I65.23 Occlusion and stenosis of bilateral carotid arteries
CPT/HCPCS: 99204

== ENCOUNTER → 2024-06-22 10:26 | Outpatient (BNVA) | payer MEDICARE, SELFPAY | PROVIDERS: PCP Physician Assistant Medical; Visit Provider Internal Medicine Cardiovascular Disease | DX: Z01.810 Encounter for preprocedural cardiovascular examination (principal); I65.23 Occlusion and stenosis of bilateral carotid arteries | CPT/HCPCS: 99202 ==

== ENCOUNTER 2024-06-24 08:54 | Outpatient (REF) | payer MEDICARE, SELFPAY ==
--- NOTE | ~2024-06-24 | MM_ITS ---
EXAMINATION: BONE DENSITOMETRY CLINICAL INDICATION: Other specified disorders of bone density and structure, unspecified. COMPARISON: This is the patient's baseline examination. TECHNIQUE: Using a [employer] DXA System (software version: 13.1) manufactured by [employer], dual-energy x-ray absorptiometry was performed of the lumbar spine and left hip. The images are of good technical quality. Summary results are attached. FINDINGS: LEFT FEMUR, NECK: BMD 0.789 g/cm2, Z-score -1.0, T-score -2.2, osteopenia. LEFT FEMUR, TOTAL: BMD 0.869 g/cm2, Z-score -0.9, T-score -1.6, osteopenia. AP SPINE L1-L4: BMD 1.038 g/cm2, Z-score -1.2, T-score -1.5, osteopenia. IDENTIFIED RISK FACTORS: None listed. HISTORY OF FRACTURE: None listed. MEDICATIONS: None listed. MM/XR DEXA axial skeleton IMPRESSION: 1. DIAGNOSIS: Osteopenia based on the lowest T-score value of -2.2 in the femoral neck applying World Health Organization criteria. 2. 10-YEAR FRACTURE RISK PREDICTION, FRAX: Major osteoporotic fracture (clinical spine, forearm, hip or shoulder) 8.7%. Hip fracture 3.0%. 3. Treatment Recommendations: NOF guidelines recommend consideration for treatment in postmenopausal women and men age 50 and older presenting with the following: -A hip or vertebral (clinical or morphometric) fracture. -T-score less than or equal to -2.5 at the femoral neck or spine after appropriate evaluation to exclude secondary causes. -Low bone mass at the hip or spine and a 10-year fracture probability by FRAX of greater than or equal to 3% for hip fracture or greater than or equal to 20% for major osteoporotic fracture based on the [place] adapted WHO algorithm. 4. Other Recommendations: All treatment decisions require clinical judgment and consideration of individual patient factors, including patient preferences, comorbidities, previous drug use, risk factors not captured in the FRAX model (e.g. frailty, falls, vitamin D deficiency, increased bone turnover, interval significant decline in bone density) and possible under or overestimation of fracture risk by FRAX. Additional medical evaluation for secondary cause of low bone mineral density may be appropriate. FUTURE SCAN RECOMMENDATION: People with diagnosed cases of osteoporosis or at high risk for fracture should have regular bone mineral density tests. For patients eligible for Medicare, routine testing is allowed once every 2 years. The testing frequency can be increased to one year for patients who have rapidly progressing disease, those who are receiving or discontinuing medical therapy to restore bone mass, or have additional risk factors. Electronically signed by: Caleb Cain MD 06/24/2024 04:46 PM MARY VELAZQUEZ
== END 2024-06-24 08:55 | disposition home or self-care (01) ==
LOC: HO.MAMMO 08:54
PROVIDERS: PCP Physician Assistant Medical; Visit Provider Physician Assistant Medical
DX: Z13.820 Encounter for screening for osteoporosis (principal); M85.89 Other specified disorders of bone density and structure, multiple sites
CPT/HCPCS: 77080

== ENCOUNTER → 2024-06-30 14:41 | Outpatient (REF) | payer MEDICARE, SELFPAY ==
--- NOTE | 2024-06-30 14:43 | CA_ITS ---
Transthoracic Echocardiogram Patient (Last, First, Middle): Leonel Chisholm, Gender: Male Date of : 1950 Age: 74 Procedure Date: 06/30/2024 Procedure Type: Transthoracic Echocardiogram Location: OP Height: 175.26 cm Weight: 86.18 kg BSA: 2.02 m2 Heart Rate: bpm BP: 122 / 60 mmHg Bioinformatics Technician: Referring MD: Kenrick Tang MD B[employer]uitware Brusher: Kenrick Tang MD Symptoms: Z01.810 - Encounter for preprocedural cardiovascular examination Study Quality: Good ECG Rhythm: Sinus Conclusions: - Normal left ventricular size and systolic function. There is mildly increased left ventricular wall thickness. The visually estimated ejection fraction is between 55-60%. - Mildly increased right ventricular cavity size. There is normal right ventricular systolic function. Findings Left Ventricle Normal left ventricular size and systolic function. There is mildly increased left ventricular wall thickness. The visually estimated ejection fraction is between 55-60%. There is no evidence of regional wall motion abnormalities. Diastolic function is normal for age. Right Ventricle Mildly increased right ventricular cavity size. There is normal right ventricular systolic function. Atria The left atrium is normal in size. Aortic Valve There is a normal trileaflet aortic valve. There is mild calcification of the aortic valve. There is no aortic valve stenosis. There is no aortic valve regurgitation. Mitral Valve Normal mitral valve structure and function. There is no mitral valve regurgitation. There is no mitral valve stenosis. Pulmonic Valve The pulmonic valve is likely normal. Tricuspid Valve Normal tricuspid valve structure and function. There is no tricuspid valve regurgitation. Mildly elevated right atrial pressure. There is no evidence of pulmonary hypertension. Great Vessels There is mild dilatation of the ascending aorta measuring 3.60 cm. The visualized portions of the pulmonary artery and branches are normal. Venous The inferior vena cava is dilated and collapses greater than 50% with inspiration. Pericardium/Pleural There is no evidence of pericardial effusion. Prior Study Comparison No prior study available for comparison. Measurements 2D Linear Measurements IVSd: 1.22 0.6-0.9/0.6-1.0 cm LVIDd: 4.63 3.9-5.3/4.2-5.9 cm LVIDd Index: 2.29 2.4-3.2/2.2-3.1 cm/m2 LVIDs: 2.82 2.0-3.6 cm LVPWd: 1.21 0.7-1.1 cm Ao Root: 3.60 2.1-3.5 cm LA Diam: 4.00 2.7-3.8/3.0-4.0 cm LAIDs Index: 1.98 1.5-2.3 cm/m2 LV Mass: 262.75 67-162/88-224 g LV Mass Index: 130.07 43-95/49-115 g/m2 LVOT Diam: 2.20 3.0+(-)1.3 cm 2D Systolic Function EF 4C: 58.20 >55% EF 2C: 59.10 >55% EF BiP: 58.70 >55% Mitral Valve MV Pk E: 0.48 MV PK A: 0.90 MV Decel Time: 265.00 E/A: 0.50 E'Lateral: 7.07 E'Medial: 7.07 E/E' Med: 6.80 E/E' Lat: 6.80 PHT: 78.00 MVA PHT: 2.82 Decel [place]: 1.81 Aortic Valve AoV Pk Duong: 1.39 AoV Mn Duong: 0.92 AoV VTI: 0.36 AoV Pk Grad: 8.00 Aov Mn Grad: 4.00 ANGELINA Cont.VTI: 2.29 LVOT LVOT Pk Duong: 0.90 LVOT Mn Duong: 0.61 LVOT VTI: 0.21 LVOT Pk Grad: 3.00 LVOT Mn Grad: 2.00 LVOT Diam: 2.20 LVOT Area: 3.80 Diastolic Function MV Pk E: 0.48 MV Pk A: 0.90 E/A: 0.50 E'Medial: 7.07 E/E' Med: 6.80 E' Laterial: 7.07 E/E' Lat: 6.80 Right Ventricle TAPSE (mm): 34.00 TVS' Duong: 11.00 Tricuspid Valve TR Pk Duong: 2.31 TR Pk Grad: 21.00 RA Press: 3.00 RVSP: 24.00 Great Vessels Aorta Ao Root-2D: 3.60 2.0-3.7 cm Ao Asc: 3.60 2.1-3.4 cm Pulmonary Valve PV Pk Duong: 1.09 Peak PV Grad: 5.00 Updated in Other Vendor System with Status of Final Kenrick Tang MD electronically signed on 07/01/2024 2:40:09 PM with status of Final
== END ==
LOC: HO.CARD 14:41
PROVIDERS: PCP Physician Assistant Medical; Visit Provider Internal Medicine Cardiovascular Disease
DX: Z01.810 Encounter for preprocedural cardiovascular examination (principal)
CPT/HCPCS: 93306

== ENCOUNTER → 2024-06-30 14:43 | Outpatient (BNV) | payer MEDICARE, SELFPAY | PROVIDERS: PCP Physician Assistant Medical; Visit Provider Internal Medicine Cardiovascular Disease | DX: I35.8 Other nonrheumatic aortic valve disorders (principal) | CPT/HCPCS: 93306 ==

== ENCOUNTER → 2024-07-16 10:14 | Outpatient (REF) | payer MEDICARE, SELFPAY ==
--- NOTE | 2024-07-16 10:16 | CA_ITS ---
Acquisition Time: 2024-07-16 10:19:18 Total Exercise Time: 00:06:26 Test Indications: Screening for CAD Medications: ASA LORATADINE LOSARTAN ALFUZOSIN Protocol: ADELFO Max HR: 144 BPM 99% of Pred: 145 BPM Max BP: 138/058 mmHG Max Work Load: 7.6 METS Exercise Stress Test with exercise 6 mins 26 secs of Adelfo Protocol, achieving 98% MPHR, with reports of 2/10 mid chest tightness that started at Stage 2 and stayed consistent through the exercise, resolved quickly during recovery. With isolated PACs, frequent PVCs, and atrial runs- max 5 beats. With normotensive response to exercise. With borderline ST changes noted inferiorly, in leads I, V4 and V5; suggestive of ischemia (interpretation harder due to artifacts). Will order Exercise stress test with Nuclear imagings. Test reviewed with Dr. Qureshi. Referred By: Kenrick Tang Overread By: Alber Ryan
== END ==
LOC: HO.CARD 10:14
PROVIDERS: PCP Physician Assistant Medical; Visit Provider Internal Medicine Cardiovascular Disease
DX: Z01.810 Encounter for preprocedural cardiovascular examination (principal)
CPT/HCPCS: 93017

== ENCOUNTER → 2024-07-16 10:16 | Outpatient (BNV) | payer MEDICARE, SELFPAY | PROVIDERS: PCP Physician Assistant Medical | DX: I49.1 Atrial premature depolarization (principal); I49.3 Ventricular premature depolarization | CPT/HCPCS: 93016; 93018 ==

== ENCOUNTER 2024-07-22 12:05 | Outpatient (REF) | payer MEDICARE, SELFPAY ==
--- NOTE | ~2024-07-22 | US_ITS ---
EXAMINATION: US RETROPERITONEUM HISTORY: retention TECHNIQUE: Real-time grayscale ultrasound imaging of the kidneys was performed and images were reviewed. COMPARISON: There are no prior studies for comparison. FINDINGS: Right kidney: The right kidney measures 11.7 x 5.4 x 5.4 cm. Renal parenchymal echotexture and thickness are normal. There are no masses. There is no hydronephrosis or renal calculi. Left Kidney: The left kidney measures 9.8 x 5.3 x 5.9 cm. Renal parenchymal echotexture and thickness are normal. There is a 7 x 6 x 7 mm cyst at the lower pole demonstrating wall calcification. An additional 11 x 6 x 9 mm cyst is noted in the interpolar region. There is no hydronephrosis or renal calculi. The urinary bladder is unremarkable. Bilateral ureteral jets are identified. Before voiding, the urinary bladder measured 13.1 x 9.0 x 11.1 cm for an estimated volume of 688 mL. After voiding, the urinary bladder measured 8.4 x 6.3 x 6.7 cm for an estimated volume of 187 mL. The prostate is enlarged measuring 4.5 x 4.5 x 5.3 cm. Incidental note is made of mild aneurysmal dilatation of the abdominal aorta measuring up to 3.6 x 3.2 cm. There is a 10 mm hepatic cyst. US/US retroperitoneal comp IMPRESSION: 1. Left renal cysts as described, one of which demonstrates wall calcification. Follow-up is recommended. 2. Post void bladder residual of 187 mL. 3. 3.6 x 3.2 cm abdominal aortic aneurysm. Electronically signed by: Joaquin Reyes MD 07/24/2024 09:36 AM EST
== END 2024-07-22 12:06 | disposition home or self-care (01) ==
LOC: HO.US 12:05
PROVIDERS: PCP Physician Assistant Medical; Visit Provider Urology
DX: R33.8 Other retention of urine (principal); R39.12 Poor urinary stream
CPT/HCPCS: 76770

== ENCOUNTER → 2024-07-22 12:36 | Outpatient (BNV) | payer MEDICARE, SELFPAY | PROVIDERS: PCP Physician Assistant Medical; Visit Provider Radiology Diagnostic Radiology | DX: N28.1 Cyst of kidney, acquired (principal) | CPT/HCPCS: 76770 ==

== ENCOUNTER 2024-10-29 08:24 | Outpatient (AMB) | payer MEDICARE, SELFPAY ==
--- NOTE | 2024-10-29 08:29 | A.OFFPC_ITS ---
Vital Signs 10/29/24 08:34 Height 5 ft 9 in Weight 194 lb 4 oz BMI 28.7 BP 126/62 Blood Pressure Location Rt brachial Position Sitting Pulse 68 Pulse Source Pulse Oximeter Temp 97.9 F Temp Source Temporal Artery Scan Pulse Oximetry (%) 97 Oxygen Delivery Method Room Air Intake Visit Reasons: Annual PE - see comments Intake Note: Leonel presents in the office today for his annual physical. Devops Engineer Required: No Allergies Seasonal Allergies Allergy (Verified 10/29/24 08:31) Itchy eyes, runny nose Tobacco use date assessed: 10/29/24 Fall risk assessment: No Falls in past year Last assessed Fall Risk: 10/29/24 Dental Screening Dental Screen Date: 10/29/24 Did you have a dental visit in the last 12 months?: Yes Did you have a dental problem in the last 6 months where you did not have access to dental care?: No Was dental information given to patient?: Patient has dentist HPI HPI Comments History of Present Illness Details This is a 73-year-old male with a past medical history of JUAN on CPAP, psoriasis, BPH, vertebral artery stenosis, bilateral carotid artery stenosis, AAA, hyperlipidemia, hypertension and lumbar spinal stenosis presenting for a physical exam. Lumbar spinal stenosis-patient evaluated at neuro spine clinic. He is deferring surgery for now. He continues to have some numbness in his right foot and weakness in his right ankle, but he says it is getting better, and he is not having pain in his back or legs or feet. He saw Cardiology for preoperative risk assessment, He had an echocardiogram on 06/30/2024 which showed normal left ventricular ejection fraction and mildly increased right ventricular cavity size. He had a cardiac stress test with borderline EKG changes versus artifact which was reviewed by the business performance advisor, and he was cleared for surgery and nuclear stress test deferred. He denies chest pain or shortness of breath. During evaluation of this his creatinine kinase level went from 214 to 175 after he stopped taking his statin. He also discuss this with Cardiology, and they decided to hold off on restarting a statin at this time. D-dimer, Lyme, RF, LUIS FERNANDO negative. He has a follow up scheduled with vascular surgery in May for carotid artery stenosis. A 3.6 cm AAA was found on an ultrasound, and we reached out to see if the patient needs to be seen sooner for evaluation though we discussed that he probably can wait to be seen until May since it is small. He is taking baby aspirin. Hypertension is treated with losartan, and this is well-controlled. BPH and renal cysts are followed by urology. He had a retroperitoneal ultrasound completed on 07/22/2024 which demonstrated left renal cysts 1 of which demonstrated wall calcification. Tadalafil was added more recently. He is also on alfuzosin. Patient has a scan scheduled in November and a follow up with Urology in December to review results. He says that the tadalafil has decreased his urinary symptoms. JUAN-on CPAP. Followed by pulmonology. [facility]-patient reports last colonoscopy within ten years and was told to return in 10 years. Record requested from [facility]. Patient has a history of mild anemia with RBC, hemoglobin and hematocrit 4.19, 13.3 and 38.6 respectively on 02/03/2024. White blood cell count, platelet and differential normal. Blood work was repeated in 03/11/2024 with mild worsening of anemia, normal iron and ferritin and B12 and folate levels. In April labs were rechecked, and anemia improved with red blood cell count, hemoglobin and hematocrit of 4.24, 13.5 and 38.5 respectively. B12 and iron studies and folate remained normal. He denies increased fatigue, bleeding, bruising. He has increased iron rich sources in his diet. No fevers, chills, unexplained weight loss or night sweats. He has a dermatology visit annually, and this is scheduled in the fall. We discussed immunizations, and he is going to get the RSV vaccine at the pharmacy. ROS: Constitutional: No unexplained weight loss, fever, chills, fatigue or night sweats. Eyes: No vision changes, blurry vision, double vision, eye pain, eye redness, eye discharge. ENT: No hearing loss, sneezing, congestion, runny nose or sore throat. Respiratory: No shortness of breath, cough or sputum production. Cardiovascular: No chest pain, chest pressure or chest discomfort or palpitations. Gastrointestinal: No anorexia, nausea, vomiting or diarrhea. No abdominal pain or blood in stool. Genitourinary: No dysuria or hematuria. Neurologic: No headache, dizziness, syncope, ataxia, seizures, tremors. Musculoskeletal: See HPI Hematologic/Lymphatics: No bleeding or bruising. No painful lymph nodes. Skin: No rash or itching. Endocrine: No cold or heat intolerance. No polyuria or polydipsia. Psychiatric: No depression or anxiety. No SI/HI. Physical exam: Constitutional: Alert, in no distress. Head: Normocephalic. Eyes: Pupils are equal, round and reactive to light. Extraocular muscles intact. Ear, Nose and Throat: Canals clear. TMs normal. Normal nasal mucosa. No nasal discharge. No oral lesions. Neck: Supple, Full range of motion. No lymphadenopathy. No palpable thyroid masses. Respiratory: Clear to auscultation. Cardiovascular: S1 S2 regular. No murmurs. Gastrointestinal: Abdomen soft, non-tender, non-distended. Normal bowel sounds. No palpable masses. Neurologic: No focal neurological deficits. Symmetric patellar reflexes. Moves all extremities spontaneously. Sensation intact bilaterally. No foot drop. Skin: No rashes Musculoskeletal: No gross deformities. Normal range of motion. Extremities: Warm and well perfused. No clubbing, cyanosis or edema. Intact upper and lower extremity peripheral pulses. Psychiatric: Normal mood and affect [facility] Medical History (Updated 10/29/24 @ 09:56 by CAM Hansen) Routine physical examination Renal cyst, left Antibody response exam Abdominal aortic aneurysm Osteopenia Numbness Osteoarthritis Former cigarette smoker Upper back pain Lumbar spinal stenosis Spinal cord lesion Bilateral primary osteoarthritis of hip Bilateral hip pain Low back pain Mild anemia Lightheaded SMITH (dyspnea on exertion) Seasonal allergic rhinitis due to pollen JUAN on CPAP Psoriasis BPH (benign prostatic hyperplasia) Vertebral artery stenosis Bilateral carotid artery stenosis Pure hypercholesterolemia Essential hypertension Surgical History Hx of bilateral inguinal hernia repair (~2019) Hx of colonoscopy Family History Father Cancer Heart attack Mother High blood pressure Social History (Updated 10/29/24 @ 08:34 by Ligia Rocha MA) Household Members: Spouse Housing: House Are you a primary adult daycare coordinator to a significant other at home: No Do you presently have visiting nurse or other home services: No Alcohol intake: current Alcohol intake frequency: holidays/special occasions only Patient Tobacco Use Status: Former Tobacco user Cigarette Packs Per Day: 1 Years Smoked: 15 years, hasn't smoked since mid e-Cigarette/Vaping Use: Never Used Second Hand Smoke Exposure: No service: No Current occupational status: retired Cognitive needs: No Hearing needs: No Vision needs: Yes (glasses) Questionnaire PHQ-9 Over the last 2 weeks, how often have you been bothered by any of the following problems? 1. Little interest or pleasure in doing things: not at all 2. Feeling down, depressed, or hopeless: not at all 3. Trouble falling or staying asleep, or sleeping too much: not at all 4. Feeling tired or having little energy: not at all 5. Poor appetite or overeating: not at all 6. Feeling bad about yourself - or that you are a failure or have let yourself or your family down: not at all 7. Trouble concentrating on things, such as reading the newspaper or watching television: not at all 8. Moving or speaking so slowly that other people could have noticed. Or the opposite - being so fidgety or restless that you have been moving around a lot more than usual: not at all 9. Thoughts that you would be better off or of hurting yourself in some way: not at all Total score: 0 Depression Screening Interpretation: Negative Depression Screening Done: Yes 41362 - PHQ-9 Billing: Patient declined-do not bill Source: Developed by Drs. Joaquin Naranjo, Adenike Cummins, Mitchel Caldwell and colleagues, with an educational tj from [employer]. Thrive Questionnaire Date Thrive assessed: 10/29/24 I am a: Patient What is your living situation today?: I have a steady place to live Within the past 12 months, did the food you bought not last and you didn't have the money to get more?: Never true Within the past 12 months, did you worry whether your food would run out before you got money to buy more?: Never true Do you have trouble paying for medicines?: No Do you have trouble getting transportation to medical appointments?: No Do you have trouble paying your heating and electricity bill?: No Do you have trouble taking care of your child, family member or friend?: No Do you have trouble with day-to-day activities such as bathing, preparing meals, shopping, managing finances, etc.?: No Are you currently unemployed and looking for a job?: Yes Are you interested in more education?: No Please select the resources that you would like help with: None Currently or been in a relationship where the following occur: No concerns reported THRIVE Score: 0 AUDIT C Alcohol Use Questionnaire (AUDIT-C) 1. How often do you have a drink containing alcohol?: 4 or more times a week 2. How many drinks containing alcohol do you have on a typical day when you are drinking?: 1 or 2 3. How often do you have six or more drinks on one occasion?: Never Total Score: 4 BENJAMIN-7 AMB Questionnaire BENJAMIN-7 Date BENJAMIN - 7 assessed: 10/29/24 Feeling nervous, anxious, or on edge: 0 = Not at all Not being able to stop or control worryin = Not at all Worrying too much about different things: 0 = Not at all Trouble relaxin = Not at all Being so restless that it is hard to sit still: 0 = Not at all Becoming easily annoyed or irritable: 0 = Not at all Feeling afraid as if something awful might happen: 0 = Not at all Total BENJAMIN-7 score (0-4 normal; 5-9 mild; 10-14 moderate; 15-21 severe): 0 Source: Developed by Drs. Joaquin Naranjo, Adenike Cummins, Mitchel Caldwell and colleagues, with an educational tj from [employer]. BENJAMIN-7 Assessment Billing BENJAMIN-7 Assessment Tool: BENJAMIN-7 Assessment 71338 Physical exam (Primary Care) Vital Signs: Last Vital Signs Temp 97.9 F 10/29/24 08:34 Pulse 68 10/29/24 08:34 BP 126/62 10/29/24 08:34 Pulse Ox 97 10/29/24 08:34 Oxygen Delivery Method Room Air 10/29/24 08:34 BMI result Body Mass Index 28.7 Tobacco/Smoking Status: Tobacco use Status Tobacco use date assessed 01/30/24 06/19/24 08:49 Patient Tobacco Use Status Former Tobacco user 10/29/24 08:34 e-Cigarette/Vaping Use Never Used 10/29/24 08:34 Depression Screening Interpretation: Negative Currently or been in a relationship where the following occur: No concerns reported Coding Level of Care Code Est Pt Prev Care >65y(21169) Diagnoses Routine physical examination Z00.00 Renal cyst, left N28.1 Abdominal aortic aneurysm I71.40 Lumbar spinal stenosis M48.061 Mild anemia D64.9 JUAN on CPAP G47.33 Benign prostatic hyperplasia with urinary frequency N40.1; R35.0 Lower urinary tract symptom presence: symptoms present Lower urinary tract symptom detail: urinary frequency Bilateral carotid artery stenosis I65.23 Essential hypertension I10 Pure hypercholesterolemia E78.00 Additional Codes BENJAMIN-7 Assessment Billing - BENJAMIN-7 Assessment Tool: BENJAMIN-7 Assessment 37643 ([id number]) Assessment & Plan Assessment & Plan (1) Routine physical examination: Code(s): Z00.00 - Encounter for general adult medical examination without abnormal findings Category: Medical Plan: Patient is seen today for a routine physical. As part of this visit we reviewed the following issues, which are considered and essential part of preventative health in this age group: - Screening for colon cancer - records requested from [facility] - Discussed Prostate cancer screening- followed by Urology. PSA up-to-date and was normal. - Cholesterol screening - Nutritional and exercise counseling - Counseling of injury prevention including fire prevention, smoke alarms and seat belt usage - Screening for depression - Education about skin cancer - Recommendations about immunizations - Recommendation of an eye exam - Screening for substance abuse Patient requested MMR titer. Ordered. (2) Renal cyst, left: Code(s): N28.1 - Cyst of kidney, acquired Category: Medical Plan: Patient has a scan in November and we will follow up with Urology in December. (3) Abdominal aortic aneurysm: Code(s): I71.40 - Abdominal aortic aneurysm, without rupture, unspecified Category: Medical Plan: Avoid smoking. Blood pressure is well-controlled. Continue losartan. We will reach out to vascular to confirm it is okay to wait until the visit in May for his follow up appointment. (4) Lumbar spinal stenosis: Code(s): M48.061 - Spinal stenosis, lumbar region without neurogenic claudication Category: Medical Plan: Symptoms are stable. He defers surgery at this time. If his symptoms worsen he will contact the neuro spine clinic. (5) Mild anemia: Code(s): D64.9 - Anemia, unspecified Category: Medical Plan: Recheck labs. If anemia persists we will refer to Gastroenterology and consider referral to Hematology pending results. (6) JUAN on CPAP: Code(s): G47.33 - Obstructive sleep apnea (adult) (pediatric) Category: Medical Plan: Managed by pulmonology. (7) BPH (benign prostatic hyperplasia): Code(s): N40.0 - Benign prostatic hyperplasia without lower urinary tract symptoms Category: Medical Qualifiers: Lower urinary tract symptom presence: symptoms present Lower urinary tract symptom detail: urinary frequency Qualified Code(s): N40.1 - Benign prostatic hyperplasia with lower urinary tract symptoms; R35.0 - Frequency of micturition Plan: Managed by Urology. (8) Bilateral carotid artery stenosis: Code(s): I65.23 - Occlusion and stenosis of bilateral carotid arteries Category: Medical Plan: Continue baby aspirin. Patient was on a statin but had elevated creatinine kinase. He met with Cardiology, and they deferred additional medication for now. We will revisit this at his follow up appointment. (9) Essential hypertension: Code(s): I10 - Essential (primary) hypertension Category: Medical Plan: Well-controlled. Continue losartan. (10) Pure hypercholesterolemia: Code(s): E78.00 - Pure hypercholesterolemia, unspecified Category: Medical Plan: Recommended Mediterranean diet. See above notes. Plan Follow up in 6 months. Orders: Orders Vitamin D 25-OH (D2 and D3) Today D64.9 - Anemia, unspecified, E78.00 - Pure hypercholesterolemia, unspecified, I10 - Essential (primary) hypertension, I65.23 - Occlusion and stenosis of bilateral carotid arteries, M85.80 - Other specified disorders of bone density and structure, unspecified site Comprehensive Met. Panel Today D64.9 - Anemia, unspecified, E78.00 - Pure hypercholesterolemia, unspecified, I10 - Essential (primary) hypertension, I65.23 - Occlusion and stenosis of bilateral carotid arteries Complete Blood Count Auto Diff Today D64.9 - Anemia, unspecified, E78.00 - Pure hypercholesterolemia, unspecified, I10 - Essential (primary) hypertension, I65.23 - Occlusion and stenosis of bilateral carotid arteries MMR IgG Measles Mumps Rubella Today Z01.84 - Encounter for antibody response examination Vitamin B12 Today D64.9 - Anemia, unspecified, E78.00 - Pure hypercholesterolemia, unspecified, I10 - Essential (primary) hypertension, I65.23 - Occlusion and stenosis of bilateral carotid arteries, Z91.89 - Other specified personal risk factors, not elsewhere classified IRON PROFILE Today D64.9 - Anemia, unspecified, E78.00 - Pure hypercholesterolemia, unspecified, I10 - Essential (primary) hypertension, I65.23 - Occlusion and stenosis of bilateral carotid arteries Ferritin Today D64.9 - Anemia, unspecified, E78.00 - Pure hypercholesterolemia, unspecified, I10 - Essential (primary) hypertension, I65.23 - Occlusion and stenosis of bilateral carotid arteries
[2024-10-29 08:34] VITALS: BP 126/62; PULSE 68; TEMP 36.6; O2SAT 97; BMI 28.7
--- OUTSIDE RECORDS SUMMARY | 2024-10-29 08:44 | XMS_ITS | Encounter Summary ---
Author Organization [facility] Address [address] [place] [address] Care Team Providers Care Coordinate Measuring Equipment Operator Name Role Phone Betty Romero MD Primary Care Provider Un available Carl Albright Primary Care Provider [phone] Encounter Details Date Type Department Care Team Description 12/14/2014 Transfer Records Medical Records [address] [place] [address] Abstract, Provider Social History Tobacco Use Types Packs/Day Years Used Date Smoking Tobacco: Former Cigarettes 1 20 Smokeless Tobacco: Never Alcohol Use Standard Drinks/Week Comments Yes 0 (1 standard drink = 0.6 oz pur e alcohol) 2 whiskey or beer per day Alcohol Habits Answer Date Recorded How often do you have a drin k containing alcohol? 4 or more times a week 10/03/2020 How many drinks containing a lcohol do you have on a typical day when you are drinking? 1 or 2 10/03/2020 How often do you have six or more drinks on one occasion? Not asked Sex Assigned at Date Recorded Male 02/18/2023 7:25 PM E DT Job Start Date Occupation Industry Not on file Not on file Not on file documented as of this encounter Plan of Treatment Not on file documented as of this encounter Visit Diagnoses Not on filedocumented in this encounter Care Teams Coordinate Measuring Equipment Operator Relationship Specialty Start Date End Date Betty Romero MD PCP - General Internal Medicine 07/15/14 Carl Albright [address] [place], [place] [phone] PCP - General Internal Medicine 11/07/21 documented as of this encounter
--- OUTSIDE RECORDS SUMMARY | 2024-10-29 08:44 | XMS_ITS | Encounter Summary ---
Author Organization [facility] Address [address] [place] [address] Care Team Providers Care Centralized Traffic Control Operator Name Role Phone Carl Albright Primary Care Provider [phone] Encounter Details Date Type Department Care Team Description 11/13/2022 Release of Information Medical Records [address] [place] [address] [facility] Social History Tobacco Use Types Packs/Day Years Used Date Smoking Tobacco: Former Cigarettes 1 20 Smokeless Tobacco: Never Alcohol Use Standard Drinks/Week Comments Yes 0 (1 standard drink = 0.6 oz pur e alcohol) 1 cocktail +/- 1 glass wine Alcohol Habits Answer Date Recorded How often [...] file Not on file Not on file COVID-19 Exposure Response Date Recorded In the last 10 days, have etienne u been in contact with someone who was confirmed or suspected to have Coronavirus/COVID-19? No / Unsure 10/29/2022 2:55 PM EDT documented as of this encounter Plan of Treatment Not on file documented as of this encounter Visit Diagnoses Not on filedocumented in this encounter Care Teams Centralized Traffic Control Operator Relationship Specialty Start Date End Date Carl Albright [address] [place], [place] [phone] PCP - General Internal Medicine 11/07/21 documented as of this encounter
--- OUTSIDE RECORDS SUMMARY | 2024-10-29 08:44 | XMS_ITS | Encounter Summary ---
Author Organization [facility] Address [address] [place] [address] Care Team Providers Care 2Nd Grade Teacher Name Role Phone Carl Albright Primary Care Provider [phone] Encounter Details Date Type Department Care Team Description 01/21/2023 Pt. Non Urgent Medical Question Adult Medicine [address] [address] Carl Albirght [address] [place] [id number] Social History Tobacco Use Types Packs/Day Years [...] In the last 10 days, have etienne chicas been in contact with someone who was confirmed or suspected to have Coronavirus/COVID-19? No / Unsure 12/31/2022 1:15 PM EDT documented as of this encounter Miscellaneous Notes * Telephone Encounter - Celina Blandon M.A. - 01/21/2023 2:23 PM EDTFrom: Leonel Chisholm To: Roland Albright Sent: 01/21/2023 1:29 PM EDT Subject: Fecal Test Card Is there an address that I can send the Fecal Immunochemical Test Card rather than dropping it off at the office? The instructions seem to imply mailing is acceptable and I'd like to avoid a trip to [place] if I can. Thanks documented in this encounter Plan of Treatment Not on file documented as of this encounter Visit Diagnoses Not on filedocumented in this encounter Care Teams 2Nd Grade Teacher Relationship Specialty Start Date End Date Carl Albright [address] [place] [id number] PCP - General Internal Medicine 11/07/21 documented as of this encounter
--- OUTSIDE RECORDS SUMMARY | 2024-10-29 08:44 | XMS_ITS | Encounter Summary ---
Author Organization [facility] Address [address] [place] [address] Care Team Providers Care Electrical High Tension Tester Name Role Phone Betty Romero MD Primary Care Provider Un available Carl Albright Primary Care Provider [phone] Encounter Details Date Type Department Care Team Description 01/04/2020 [facility] [address] [place] [phone] Md Idalmis Social History Tobacco Use Types Packs/Day Years [...] on filedocumented in this encounter Care Teams Electrical High Tension Tester Relationship Specialty Start Date End Date Betty Romero MD PCP - General Internal Medicine 07/15/14 Carl Albright [address] [place], [place] [phone] PCP - General Internal Medicine 11/07/21 documented as of this encounter
--- OUTSIDE RECORDS SUMMARY | 2024-10-29 08:44 | XMS_ITS | Encounter Summary ---
Author Organization [facility] Address [address] [place] [address] Care Team Providers Care Home Companion Name Role Phone Betty Romero MD Primary Care Provider Un available Carl Albright Primary Care Provider [phone] Encounter Details Date Type Department Care Team Description 11/30/2014 Release of Information Medical Records [address] [place] [address] Abstract, Provider Social History Tobacco Use Types [...] on filedocumented in this encounter Care Teams Home Companion Relationship Specialty Start Date End Date Betty Romero MD PCP - General Internal Medicine 07/15/14 Carl Albright [address] [place] [address] PCP - General Internal Medicine 11/07/21 documented as of this encounter
--- OUTSIDE RECORDS SUMMARY | 2024-10-29 08:44 | XMS_ITS | Encounter Summary ---
Author Organization [facility] Address [address] [place] [address] Care Team Providers Care Residential Real Estate Sales Manager Name Role Phone Betty Romero MD Primary Care Provider Un available Carl Albright Primary Care Provider [phone] Encounter Details Date Type Department Care Team Description 06/14/2016 Pt. Non Urgent Medic al Question Medicine/Pediatrics - [address] [phone] Betty Romero MD Social History Tobacco Use Types Packs/Day Years [...] on file documented as of this encounter Progress Notes * Danya Workman M.A. - 06/14/2016 10:47 AM ESTFrom: Leonel Chisholm To: Betty Romero MD Sent: 06/14/2016 10:46 AM EST Subject: Colonoscopy Provider The info you requested: the doctor for my Jun 21 scheduled colonoscopy is Laith Castaneda documented in this encounter Plan of Treatment Not on file documented as of this encounter Visit Diagnoses Not on filedocumented in this encounter Care Teams Residential Real Estate Sales Manager Relationship Specialty Start Date End Date Betty Romero MD PCP - General Internal Medicine 07/15/14 Carl Albright [address] [place] [id number] PCP - General Internal Medicine 11/07/21 documented as of this encounter
--- OUTSIDE RECORDS SUMMARY | 2024-10-29 08:44 | XMS_ITS | Clinical Summary ---
Author Organization [facility] it Address [address] [place] [address] Care Team Providers Care Correctional Food Service Supervisor Name Role Phone Carl Albright MD Primary Care Provider [phone] Allergies Active Allergy Reactions Criticality Noted Date Comments Other 10/25/2021 Seasonal Other Reaction(s): Runny Nose/Rhinitis Medications losartan (COZAAR) 50 mg tablet Take 1 tablet (50 mg total) by mouth 1 (one) time each day. 4 Active tamsulosin (FLOMAX) 0.4 mg 24 hr capsule Take 2 Capsules by mouth daily. Take 30 mins after same meal every day. 4 Active hydroCHLOROthiaz caleb (HYDRODIURIL) 25 mg tablet Take 1 tablet (25 mg total) by mouth 1 (one) time each day. 4 Active atorvastatin (LIPITOR) 20 mg tablet Take 1 tablet (20 mg total) by mouth 1 (one) time each day. 4 Active fluocinolone and shower cap 0.01 % oil 3 Active cetirizine (ZyrTEC) 10 mg tablet Take 1 tablet (10 mg total) by mouth 1 (one) time each day. Active betamethasone dipropionate 0.05 % lotion Apply topically 2 times daily. Apply to scalp, ear, and under affected fingernails 1-2x daily prn Active Active Problems Problem Noted Date Diagnosed Date Hyperlipemia 07/10/2024 Psoriasis 07/10/2024 Seasonal allergies 07/10/2024 Bilateral carotid artery stenosis 09/25/2023 Stenosis of both vertebral arteries 09/25/2023 Seasonal allergic rhinitis due to pollen 019 Essential hypertension 08/09/2016 BPH (benign prostatic hyperplasia) 01/24/2016 Erectile dysfunction 01/24/2016 JUAN on CPAP 01/19/2015 Overview (07/10/2024): Sleep study 12/05/2010 Sleep Disorder center [facility] Immunizations Name Administration Dates Next Due Pneumococcal conjugate 13 va lent (Prevnar 13, PCV13) 2mo and older 04/07/2015 Pneumococcal polysaccharide 23 valent (Pneumovax 23) 2yo and older 04/12/2016 Tdap Tetanus diptheria acell ular pertussis (Boostrix; Adacel) 7yo and older 05/10/2010 Zoster recombinant (Shingrix) 19yo and older 11/2021 Surgical History Surgery Date Site/Laterality Comments LIPOMA RESECTION PROCEDURE: SKIN TISSUE EXCISION(LIPOMA); COMMENT: 1 on arm and 1 on back HERNIA REPAIR 01/06/2018 Right PROCEDURE: LAPAROSCOPY, INGUINAL HERNIA REPAIR; COMMENT: Dr. Birmingham Medical History Medical History Date Comments Seasonal allergies DX:Seasonal a llergies Psoriasis DX:Psoriasis Hyperlipemia DX:Hyperlipemia Obstructive sleep apnea (blake lt) (pediatric) 01/19/2015 DX:Obstructive sleep apnea ( adult) (pediatric); COMMENT: Sleep study 12/05/2010 Sleep Disorder center [facility] BPH (benign prostatic hyperplasia) 01/24/2016 DX:BPH (benign prostatic hyperplasia) Erectile dysfunction 01/24/2016 DX:Erectile dysfunction Family History Relation Name Status Comments Brother Alive healthy Daughter 1 Alive healthy Daughter 2 Alive healthy Father (Age 72) colon CA o jose cruz age 50, heart attack age 72 Mother (Age 86) old age Sister 1 Alive healthy Sister 2 Alive healthy Son Alive healthy Social History Tobacco Use Types Packs/Day Years Used Date Smoking Tobacco: Former Cigarettes Smokeless Tobacco: Never Alcohol Use Standard Drinks/Week Comments Yes 0 (1 standard drink = 0.6 oz pur e alcohol) Sex and Gender Information Value Date Recorded Sex Assigned at Not on file Legal Sex Male 10:06 PM EST Gender Identity Not on file Sexual Orientation Not on file Obstetrics History Last Filed Vital Signs Vital Sign Reading Time Taken Comments Blood Pressure 118/70 09/25/2023 2:04 PM EDT Pulse 72 09/25/2023 2:04 PM EDT Temperature - - Respiratory Rate - - Oxygen Saturation 97% 10/25/2021 10:55 AM EDT RA Inhaled Oxygen Concentration - - Weight 88 kg (194 lb) 09/25/2023 2:04 PM EDT Height 177.8 cm (5' 10 ) 09/25/2023 2:04 PM EDT Body Mass Index 27.84 09/25/2023 2:04 PM EDT Plan of Treatment Health Maintenance Due Date Last Done Comments DTaP,Tdap,and Td Vaccines (2 - Td or Tdap) 05/10/2020 05/10/2010 Zoster Vaccines (2 of 2) 05/14/2022 03/19/2022 Colorectal Cancer Screening: Stool Based Tests (FOBT/FIT) 06/23/2022 Depression Screening 06/23/2022 Falls Risk Assessment 06/23/2022 Social Influencers of Health Screening 06/23/2022 Hypertension/CHF/CAD Annual BMP Blood Test 02/19/2023 02/19/2022 COVID-19 Vaccine (4 - 2023-2 5 season) 2024 05/05/2021, 10/19/2020, 09/28/2020 RSV Immunization Adult Patients (1 - 1-dose 75+ series) 2024 Influenza Vaccine (Season Ended) 2025 Cholesterol Screening (Lipid Panel) 02/19/2027 02/19/2022 Abdominal Aortic Aneurysm (AAA) Screen Completed 12/28/2014 Hepatitis C Screening Completed 01/25/2016 Pneumococcal Vaccine: 50+ Years Completed 04/12/2016, 04/07/2015 Colorectal Cancer Screening: Colonoscopy Discontinued 01/24/2023 HIB Vaccines Aged Out No longer eligi ble based on patient's age to complete this topic HPV Vaccines Aged Out No longer eligi ble based on patient's age to complete this topic Hepatitis A Vaccines Aged Out No long er eligible based on patient's age to complete this topic Hepatitis B Vaccines Aged Out No long er eligible based on patient's age to complete this topic IPV Vaccines Aged Out No longer eligi ble based on patient's age to complete this topic MMR Vaccines Aged Out No longer eligi ble based on patient's age to complete this topic Meningococcal ACWY Vaccine Aged Out N o longer eligible based on patient's age to complete this topic Meningococcal B Vaccine Aged Out No l onger eligible based on patient's age to complete this topic RSV Immunization Patients Under 20 months Aged Out No longer eligible based on patient's age to complete this topic Varicella Vaccines Aged Out No longer eligible based on patient's age to complete this topic Procedures Procedure Name Priority Date/Time Associated Diagnosis Comments COLONOSCOPY Routine 01/24/2023 ANNUAL BMP BLOOD TEST Routine 02/19/2022 LIPID PANEL Routine 02/19/2022 HEPATITIS C SCREENING Routine 01/25/2016 ABDOMINAL AORTIC ANEURYSM SCRREN Routine 12/28/2014 from Last 3 Months or Most Recently Relevant to Health Maintenance Results * Colonoscopy (01/24/2023) Pathologist [facility] Colonoscopy No Interpretation , Abstracted Anatomical Region Laterality Modality Other [facility] Provider HEALTH MAINTENANCE Final Result * Annual BMP Blood Test (02/19/2022) Pathologist [facility] Annual BMP Blood Test Abstracted [facility] Provider HEALTH MAINTENANCE Final Result * Lipid panel (02/19/2022) [facility] LDL/HDL Ratio 2 0 - 4 Triglycerides 98 0 - 150 mg/dL Cholesterol 199 0 - 200 mg/dL HDL 82 >=40 mg/dL LDL Cholesterol 98 0 - 100 mg/dL Blood Venous blood specimen / Unknown [facility] Provider LAB BLOOD ORDERABLES Henrietta l Result * Hepatitis C Screening (01/25/2016) Pathologist [facility] Hepatitis C Screening Abstracted [facility] Provider HEALTH MAINTENANCE Final Result * Abdominal Aortic Aneurysm Screen (12/28/2014) Pathologist [facility] Abdominal Aortic Aneurysm (AAA) Screening Abstracted Anatomical Region Laterality Modality Other [facility] Provider HEALTH MAINTENANCE Final Result from Last 3 Months or Most Recently Relevant to Health Maintenance Care Teams Correctional Food Service Supervisor Relationship Specialty Start Date End Date Carl Albright MD [address] [place] [address] PCP - General Internal Medicine 11/07/21
--- OUTSIDE RECORDS SUMMARY | 2024-10-29 08:44 | XMS_ITS | Encounter Summary ---
Author Organization [facility] Address [address] [place] [address] Care Team Providers Care Court Usher Name Role Phone Betty Romero MD Primary Care Provider Un available Carl Albright Primary Care Provider [phone] Encounter Details Date Type Department Care Team Description 06/12/2016 [facility] [address] [place] [address] [phone] Md Idalmis Social History Tobacco Use Types [...] on filedocumented in this encounter Care Teams Court Usher Relationship Specialty Start Date End Date Betty Romero MD PCP - General Internal Medicine 07/15/14 Carl Albright [address] [place], [place] [phone] PCP - General Internal Medicine 11/07/21 documented as of this encounter
--- OUTSIDE RECORDS SUMMARY | 2024-10-29 08:44 | XMS_ITS | Encounter Summary ---
Author Organization [facility] Address [address] [place] [address] Care Team Providers Care Relocation Services Specialist Name Role Phone Carl Albright Primary Care Provider [phone] Reason for Referral * EXTERNAL (Priority) - Authorized/Booked Specialty Diagnoses / Procedures Referred By Bessie t Referred To Contact Pulmonology Procedures REFERRAL TO PULMONOLOGY Carl Albright [address] [place] [address] Dorys Clements MD [facility] [address] [place] [id number] Referral ID Status Reason Start Date Expiration Date V isits Requested Visits Authorized [id number] Authorized/B ooked 03/05/2023 07/08/2023 1 1 Reason for Visit * Reason Onset Date Comments REFERRAL 02/25/2023 Pt would like a new CPAP machine Encounter Details Date Type Department Care Team Description 02/25/2023 Pt. Non Urgent Medical Question Adult Medicine [address] [address] Carl Albright [address] [place] [address] [phone] JUAN on CPAP (Primary Dx) Social History Tobacco Use Types Packs/Day Years [...] suspected to have Coronavirus/COVID-19? No / Unsure 02/14/2023 10:01 AM EDT documented as of this encounter Miscellaneous Notes * Telephone Encounter - Gwen Jain M.A. - 02/25/2023 1:41 PM EDTFrom: Leonel Chisholm To: Roland Albright Sent: 02/25/2023 11:28 AM EDT Subject: CPAP Perscription Can you provide a prescription for a replacement CPAP machine based on the sleep study in my file? You provided one about 5 yrs ago when I bought my travel machine and I need to replace my home machine. Thanks documented in this encounter Plan of Treatment Scheduled Orders Name Type Priority Associated Diagnoses Orde r Schedule SLEEP STUDY-FULL NEURO 16 CHANNEL SLEEP STUDY Routine JUAN on CPAP Expected: 03/05/2023, Expires: 03/05/2024 documented as of this encounter Visit Diagnoses Diagnosis JUAN on CPAP- Primary Obstructive sleep apnea (adult) (pediatric) documented in this encounter Care Teams Relocation Services Specialist Relationship Specialty Start Date End Date Carl Albright [address] [place] [address] PCP - General Internal Medicine 11/07/21 documented as of this encounter
--- OUTSIDE RECORDS SUMMARY | 2024-10-29 08:44 | XMS_ITS | Encounter Summary ---
Author Organization [facility] Address [address] [place] [address] Care Team Providers Care Naval Special Warfare Medic Name Role Phone Betty Romero MD Primary Care Provider Un available Carl Albright Primary Care Provider [phone] Encounter Details Date Type Department Care Team Description 09/11/2019 [facility] [address] [place] [address] [phone] Md Idalmis Social History Tobacco Use Types [...] on filedocumented in this encounter Care Teams Naval Special Warfare Medic Relationship Specialty Start Date End Date Betty Romero MD PCP - General Internal Medicine 07/15/14 Carl Albright [address] [place], [place] [phone] PCP - General Internal Medicine 11/07/21 documented as of this encounter
--- OUTSIDE RECORDS SUMMARY | 2024-10-29 08:44 | XMS_ITS | Encounter Summary ---
Author Organization [facility] Address [facility] [place] [address] Care Team Providers Care Hot Room Attendant Name Role Phone Betty Romero MD Primary Care Provider Un available Carl Albright Primary Care Provider [phone] Reason for Visit * Reason Onset Date Comments Wrapper Caser Feedback 02/07/2021 Dr. Gamble Encounter Details Date Type Department Care Team Description 02/07/2021 Telephone Medicine/Pediatrics - [address] [phone] Betty Romero MD Wrapper Caser Feedback (Dr. Gamble) Social History Tobacco Use Types Packs/Day Years [...] on file documented as of this encounter Miscellaneous Notes * Telephone Encounter - Rand Jacinto - 02/07/2021 2:22 PM EDT No insurance referral required per patient's insurance. documented in this encounter Plan of Treatment Not on file documented as of this encounter Visit Diagnoses Not on filedocumented in this encounter Care Teams Hot Room Attendant Relationship Specialty Start Date End Date Betty Romero MD PCP - General Internal Medicine 07/15/14 Carl Albright [address] [place] [address] PCP - General Internal Medicine 11/07/21 documented as of this encounter
--- OUTSIDE RECORDS SUMMARY | 2024-10-29 08:44 | XMS_ITS | Encounter Summary ---
Author Organization [facility] Address [address] [place] [address] Care Team Providers Care Guest Services Lead Name Role Phone Carl Albright Primary Care Provider [phone] Reason for Visit * Reason Comments E-prescribe Rx Request Encounter Details Date Type Department Care Team Description 12/10/2022 Refill Adult Medicine [facility] [address] [place] [address] Eugenio Dalton, PARachelleC [address] [place] [phone] E-prescribe Rx Request Social History Tobacco Use Types Packs/Day Years [...] Recorded In the last 10 days, have yo u been in contact with someone who was confirmed or suspected to have Coronavirus/COVID-19? No / Unsure 12/07/2022 12:10 PM EDT documented as of this encounter Miscellaneous Notes * Telephone Encounter - Vandana Thornton M.A. - 12/11/2022 11:58 AM EDT Last office visit 10/29/22 Next office visit 12/31/22 Lisinopril D/c'd on 10/29/22 * Telephone Encounter - Camilla Tellez - 12/11/2022 11:51 AM EDT Patient would like script to be: E-PRESCRIBED/FAXED TO PHARMACY WHEN WAS THE PATIENT'S LAST APPOINTMENT IN ADULT MEDICINE? 10/29/22 WHEN WAS THE LAST TIME THE PATIENT SAW THEIR PCP? Not yet Does patient have an upcoming appointment? Yes 12/31/22 pcp (THE MEDICATION REQUESTED IS ON THE MED LIST ABOVE) All of the medications requested were on the CURRENT MEDS list Did you check the Pharmacy information above?: YES Patient wants: 90 -day supply Is this a mail order prescription request ? NO If the refill is from a FAXED refill request what is the RX # listed on the fax? N/A Patients current insurance carrier is: Payor: [facility] MEDIC[facility] FFS / Plan: [facility] MDCR-ADV HMO $0 [place] [id number] / Product Type: HMO [id number] documented in this encounter Plan of Treatment Not on file documented as of this encounter Visit Diagnoses Not on filedocumented in this encounter Care Teams Guest Services Lead Relationship Specialty Start Date End Date Carl Albright [address] [place] [phone] PCP - General Internal Medicine 11/07/21 documented as of this encounter
--- OUTSIDE RECORDS SUMMARY | 2024-10-29 08:44 | XMS_ITS | Encounter Summary ---
Author Organization [facility] Address [address] [place] [address] Care Team Providers Care Linux Network Administrator Name Role Phone Carl Albright Primary Care Provider [phone] Reason for Visit * Reason Onset Date Comments External Sleep Study Request 03/06/2023 Sle ep Study Encounter Details Date Type Department Care Team Description 03/06/2023 Telephone Adult Medicine [address] [address] Carl Albright [address] [place] [address] External Sleep Study Request (Sleep Study/) Social History Tobacco Use Types Packs/Day Years [...] encounter Miscellaneous Notes * Telephone Encounter - Kristin Kishan - 03/06/2023 12:40 PM EDT [facility], NO AUTH REQUIRED Order, notes, and benefits faxed to Sleep Medicine Services. They will contact patient to schedule,notification letter sent. documented in this encounter Plan of Treatment Not on file documented as of this encounter Visit Diagnoses Not on filedocumented in this encounter Care Teams Linux Network Administrator Relationship Specialty Start Date End Date Carl Albright [address] [place] [phone] PCP - General Internal Medicine 11/07/21 documented as of this encounter
--- OUTSIDE RECORDS SUMMARY | 2024-10-29 08:44 | XMS_ITS | Encounter Summary ---
Author Organization [facility] Address [address] [place] [address] Care Team Providers Care Printing Machine Operator Name Role Phone Betty Romero MD Primary Care Provider Un available Carl Albright Primary Care Provider [phone] Encounter Details Date Type Department Care Team Description 09/17/2016 Pt. Non Urgent Medical Question Medicine/Pediatrics - [address] [phone] Jazmin Álvarez PA-C Social History Tobacco Use Types Packs/Day Years [...] as of this encounter Progress Notes * Pam Thompson L.P.N. - 09/17/2016 1:37 PM ESTFrom: Leonel Chisholm To: Jazmin Álvarez PA-C Sent: 09/17/2016 12:39 PM EST Subject: Blood Pressure Hi Jazmin - when we first talked about my high BP, we talked about getting it under control for my vacation and then getting back together to look into the cause. I'm back now and would like to get started. Can you suggest some next steps and let me know when to set an appointment? After starting the BP medication, I had a low grade headache for much of the day, but that seems tohave gone away. I had some issues with the altitude when first getting to the [facility] area (at about [id number]'), I took a couple of day's worth of the pills you gave me and felt better. I didn't have any more issues for the rest of the trip other than some non-intrusive intestinal malaise (loose stool & a bit of constipation), which has continued since getting home. I haven't checked my BP, but I noticed this morning that my heart rate was higher than normal (150's vs 130's) while doing my normal workout. Hmm... Leonel documented in this encounter Plan of Treatment Not on file documented as of this encounter Visit Diagnoses Not on filedocumented in this encounter Care Teams Printing Machine Operator Relationship Specialty Start Date End Date Betty Romero MD PCP - General Internal Medicine 07/15/14 Carl Albright [address] [place] [phone] PCP - General Internal Medicine 11/07/21 documented as of this encounter
--- OUTSIDE RECORDS SUMMARY | 2024-10-29 08:45 | XMS_ITS | Encounter Summary ---
Author Organization [facility] Address [address] [place] [address] Care Team Providers Care Credit Risk Specialist Name Role Phone Betty Romero MD Primary Care Provider Un available Carl Albright Primary Care Provider [phone] Encounter Details Date Type Department Care Team Description 11/28/2017 Orders Only General Surgery - [address] [place] [phone] Mann Birmingham MD [address] [place] [address] Right inguinal hernia (Primary Dx) Social History Tobacco Use Types [...] as of this encounter Visit Diagnoses Diagnosis Right inguinal hernia- Primary Inguinal hernia without mention of obstruction or gangrene, unilateral or unspecified, (not specified as recurrent) documented in this encounter Care Teams Credit Risk Specialist Relationship Specialty Start Date End Date Betty Romero MD PCP - General Internal Medicine 07/15/14 Carl Albright [address] [place] [address] PCP - General Internal Medicine 11/07/21 documented as of this encounter
--- OUTSIDE RECORDS SUMMARY | 2024-10-29 08:45 | XMS_ITS | Encounter Summary ---
Author Organization [facility] Address [address] [place] [address] Care Team Providers Care Turn Laster Name Role Phone Betty Romero MD Primary Care Provider Un available Carl Albright Primary Care Provider [phone] Encounter Details Date Type Department Care Team Description 03/19/2018 Mud Logger Report Medical Records [address] [place] [address] Ana Raymundo MD [facility] [place] [address] Social History Tobacco Use Types Packs/Day Years [...] on filedocumented in this encounter Care Teams Turn Laster Relationship Specialty Start Date End Date Betty Romero MD PCP - General Internal Medicine 07/15/14 Carl Albright [address] [place] [address] PCP - General Internal Medicine 11/07/21 documented as of this encounter
--- OUTSIDE RECORDS SUMMARY | 2024-10-29 08:45 | XMS_ITS | Encounter Summary ---
Author Organization [facility] Address [address] [place] [address] Care Team Providers Care Commercial Center Manager Name Role Phone Carl Albright Primary Care Provider [phone] Encounter Details Date Type Department Care Team Description 03/19/2024 Job Spotter Report Medical Records [address] [place] [address] Ana Raymundo MD [address] [place] [address] Social History Tobacco Use Types Packs/Day Years [...] on filedocumented in this encounter Care Teams Commercial Center Manager Relationship Specialty Start Date End Date Carl Albright [address] [place] [address] PCP - General Internal Medicine 11/07/21 documented as of this encounter
--- OUTSIDE RECORDS SUMMARY | 2024-10-29 08:45 | XMS_ITS | Encounter Summary ---
Author Organization [facility] Address [address] [place] [address] Care Team Providers Care Call Center Support Consultant Name Role Phone Betty Romero MD Primary Care Provider Un available Carl Albright Primary Care Provider [phone] Encounter Details Date Type Department Care Team Description 01/09/2016 [facility] [address] [place] [address] [phone] Md Idalmis Social History Tobacco Use Types [...] on filedocumented in this encounter Care Teams Call Center Support Consultant Relationship Specialty Start Date End Date Betty Romero MD PCP - General Internal Medicine 07/15/14 Carl Albright [address] [place], [place] [phone] PCP - General Internal Medicine 11/07/21 documented as of this encounter
--- OUTSIDE RECORDS SUMMARY | 2024-10-29 08:45 | XMS_ITS | Encounter Summary ---
Author Organization [facility] Address [address] [place] [address] Care Team Providers Care Area Field Manager Name Role Phone Carl Albright Primary Care Provider [phone] Reason for Visit * Reason Comments E-prescribe Rx Request Encounter Details Date Type Department Care Team Description 02/19/2022 Refill Adult Medicine [address] [address] Casandra Tellez PA-C E-prescribe Rx Request Social History Tobacco Use [...] suspected to have Coronavirus/COVID-19? No / Unsure 02/19/2022 1:53 PM EDT documented as of this encounter Plan of Treatment Not on file documented as of this encounter Visit Diagnoses Not on filedocumented in this encounter Care Teams Area Field Manager Relationship Specialty Start Date End Date Carl Albright [address] [place] [address] PCP - General Internal Medicine 11/07/21 documented as of this encounter
--- OUTSIDE RECORDS SUMMARY | 2024-10-29 08:45 | XMS_ITS | Encounter Summary ---
Author Organization [facility] Address [address] [place] [address] Care Team Providers Care Manager Title Name Role Phone Betty Romero MD Primary Care Provider Un available Carl Albright Primary Care Provider [phone] Encounter Details Date Type Department Care Team Description 09/08/2015 Patrol Lady Report Medical Records [address] [place] [address] Ana Raymundo MD [facility] [place] [address] Social History Tobacco Use Types Packs/Day Years [...] on filedocumented in this encounter Care Teams Manager Title Relationship Specialty Start Date End Date Betty Romero MD PCP - General Internal Medicine 07/15/14 Carl Albright [address] [place] [address] PCP - General Internal Medicine 11/07/21 documented as of this encounter
--- OUTSIDE RECORDS SUMMARY | 2024-10-29 08:45 | XMS_ITS | Encounter Summary ---
Author Organization [facility] Address [address] [place] [address] Care Team Providers Care Ui Developer Designer Name Role Phone Betty Romero MD Primary Care Provider Un available Carl Albright Primary Care Provider [phone] Reason for Referral * EXTERNAL (Routine) - Authorized/Booked Specialty Diagnoses / Procedures Referred By Contac t Referred To Contact Ophthalmology Procedures REFERRAL TO EXTERNAL OPHTHALMOLOGY Betty Romero MD [address] [place] [address] Grabiel Gamble MD Referral ID Status Reason Start Date Expiration Date V isits Requested Visits Authorized SEE NOTE Authorized/B ooked 01/10/2016 04/12/2016 1 1 Reason for Visit * Reason Onset Date Comments Application Systems Architect Feedback 01/09/2016 Dr Gamble Encounter Details Date Type Department Care Team Description 01/09/2016 Telephone Medicine/Pediatrics - [address] [phone] Betty Romero MD Application Systems Architect Feedback (Dr Gamble) Social History Tobacco Use Types Packs/Day [...] encounter Miscellaneous Notes * Telephone Encounter - Joe Maciel - 01/09/2016 3:32 PM EDT Request came through my chart Please review this patients new referral request. The referral has been pended. Please complete thefollowing: If approved> sign order If denied>please give instructions and route to your practice nursing pool. Practice nurse should inform referrals and the patient if denied. documented in this encounter Plan of Treatment Not on file documented as of this encounter Visit Diagnoses Not on filedocumented in this encounter Care Teams Ui Developer Designer Relationship Specialty Start Date End Date Betty Romero MD PCP - General Internal Medicine 07/15/14 Carl Albright [address] [place] [id number] PCP - General Internal Medicine 11/07/21 documented as of this encounter
--- OUTSIDE RECORDS SUMMARY | 2024-10-29 08:45 | XMS_ITS | Encounter Summary ---
Author Organization [facility] Address [address] [place] [address] Care Team Providers Care Ophthalmology Assistant Name Role Phone Betty Romero MD Primary Care Provider Un available Carl Albright Primary Care Provider Encounter Details Date Type Department Care Team Description 01/13/2019 Pt. Non Urgent Medic al Question Medicine/Pediatrics - [address] [phone] Betty Romero MD Social History Tobacco Use [...] Progress Notes * Pam Thompson L.P.N. - 01/13/2019 8:35 AM EDTFrom: Leonel Chisholm To: Betty Romero MD Sent: 01/13/2019 8:33 AM EDT Subject: Yellow Fever Vaccination My & I are travelling to [place] at the end of the month and the WHO warns that there is yellow fever in the area. Can you provide my & I with the shots? Thanks Leonel documented in this encounter Plan of Treatment Not on file documented as of this encounter Visit Diagnoses Not on filedocumented in this encounter Care Teams Ophthalmology Assistant Relationship Specialty Start Date End Date Betty Romero MD PCP - General Internal Medicine 07/15/14 Carl Albright [address] [place] [address] PCP - General Internal Medicine 11/07/21 documented as of this encounter
--- OUTSIDE RECORDS SUMMARY | 2024-10-29 08:45 | XMS_ITS | Encounter Summary ---
Author Organization [facility] Address [address] [place] [address] Care Team Providers Care Export Sales Manager Name Role Phone Betty Romero MD Primary Care Provider Un available Carl Albright Primary Care Provider [phone] Encounter Details Date Type Department Care Team Description 01/06/2018 Hospital Medical Records [address] [place] [address] Mann Birmingham MD [address] [place] [address] Social History Tobacco Use Types Packs/Day Years [...] on filedocumented in this encounter Care Teams Export Sales Manager Relationship Specialty Start Date End Date Betty Romero MD PCP - General Internal Medicine 07/15/14 Carl Albright [address] [place] [address] [phone] PCP - General Internal Medicine 11/07/21 documented as of this encounter
--- OUTSIDE RECORDS SUMMARY | 2024-10-29 08:45 | XMS_ITS | Encounter Summary ---
Author Organization [facility] Address [address] [place] [address] Care Team Providers Care Sr. Pricing Analyst Name Role Phone Betty Romero MD Primary Care Provider Un available Carl Albright Primary Care Provider [phone] Encounter Details Date Type Department Care Team Description 12/16/2018 [facility] [address] [place] [address] [phone] Md Idalmis Social History Tobacco Use Types [...] on filedocumented in this encounter Care Teams Sr. Pricing Analyst Relationship Specialty Start Date End Date Betty Romero MD PCP - General Internal Medicine 07/15/14 Carl Albright [address] [place], [place] [phone] PCP - General Internal Medicine 11/07/21 documented as of this encounter
--- OUTSIDE RECORDS SUMMARY | 2024-10-29 08:45 | XMS_ITS | Encounter Summary ---
Author Organization [facility] Address [address] [place] [address] Care Team Providers Care Zinc Skimmer Name Role Phone Betty Romero MD Primary Care Provider Un available Carl Albright Primary Care Provider [phone] Reason for Visit * Reason Onset Date Comments REFERRAL 07/07/2018 Encounter Details Date Type Department Care Team Description 07/07/2018 Telephone Allergy - [address] [phone] Naya Gonzalez MD REFERRAL Social History Tobacco Use Types Packs/Day Years [...] encounter Miscellaneous Notes * Telephone Encounter - Shaniqua Cummins - 07/07/2018 8:53 AM EST Made Multiple attempts to reach patient by phone and sent letter as well with no response- will remove patient from referral report I will request a referral to allergy. Reason for referral: allergy testing Priority: Routine - schedule for next available appointment; Priority - visit within 4-6 weeks; Urgent - visit within a week; Emergency - visit today or tomorrow. Not third-libertarian related documented in this encounter Plan of Treatment Not on file documented as of this encounter Visit Diagnoses Not on filedocumented in this encounter Care Teams Zinc Skimmer Relationship Specialty Start Date End Date Betty Romero MD PCP - General Internal Medicine 07/15/14 Carl Albright [address] [place] [id number] PCP - General Internal Medicine 11/07/21 documented as of this encounter
--- OUTSIDE RECORDS SUMMARY | 2024-10-29 08:45 | XMS_ITS | Encounter Summary ---
Author Organization [facility] Address [address] [place] [address] Care Team Providers Care Change Of Address Clerk Name Role Phone Betty Romero MD Primary Care Provider Un available Carl Albright Primary Care Provider [phone] Encounter Details Date Type Department Care Team Description 08/07/2017 [facility] [address] [place] [address] [phone] Md Idalmis Social History Tobacco Use Types [...] on filedocumented in this encounter Care Teams Change Of Address Clerk Relationship Specialty Start Date End Date Betty Romero MD PCP - General Internal Medicine 07/15/14 Carl Albright [address] [place], [place] [phone] PCP - General Internal Medicine 11/07/21 documented as of this encounter
== END 2024-10-29 09:07 | disposition home or self-care (01) ==
LOC: HO.HMCFM 08:24
PROVIDERS: PCP Physician Assistant Medical; Visit Provider Physician Assistant Medical
DX: Z00.00 Encounter for general adult medical examination without abnormal findings (principal); N28.1 Cyst of kidney, acquired; I71.40 Abdominal aortic aneurysm, without rupture, unspecified; M48.061 Spinal stenosis, lumbar region without neurogenic claudication; D64.9 Anemia, unspecified; G47.33 Obstructive sleep apnea (adult) (pediatric); N40.1 Benign prostatic hyperplasia with lower urinary tract symptoms; R35.0 Frequency of micturition; I65.23 Occlusion and stenosis of bilateral carotid arteries; I10 Essential (primary) hypertension; E78.00 Pure hypercholesterolemia, unspecified

== ENCOUNTER → 2024-10-29 08:24 | Outpatient (BNVA) | payer MEDICARE, SELFPAY | PROVIDERS: PCP Physician Assistant Medical; Visit Provider Physician Assistant Medical | DX: Z00.00 Encounter for general adult medical examination without abnormal findings (principal); N28.1 Cyst of kidney, acquired; I71.40 Abdominal aortic aneurysm, without rupture, unspecified; M48.061 Spinal stenosis, lumbar region without neurogenic claudication; D64.9 Anemia, unspecified; G47.33 Obstructive sleep apnea (adult) (pediatric); N40.1 Benign prostatic hyperplasia with lower urinary tract symptoms; R35.0 Frequency of micturition; I65.23 Occlusion and stenosis of bilateral carotid arteries; I10 Essential (primary) hypertension; E78.00 Pure hypercholesterolemia, unspecified | CPT/HCPCS: 96127; 99397 ==

== ENCOUNTER 2024-10-29 09:24 | Outpatient (REF) | payer MEDICARE, SELFPAY ==
--- OUTSIDE RECORDS SUMMARY | 2024-10-29 10:38 | XMS_ITS | Clinical Summary ---
Author Organization [facility] it Address [address] [place] [address] Care Team Providers Care Police Artist Name Role Phone Carl Albright MD Primary Care Provider [phone] Allergies Active Allergy Reactions Criticality Noted Date [...] (07/10/2024): Sleep study 12/05/2010 Sleep Disorder center [facility] Immunizations Name Administration Dates Next Due Pneumococcal [...] COMMENT: Sleep study 12/05/2010 Sleep Disorder center [facility] BPH (benign prostatic hyperplasia) 01/24/2016 DX:BPH (benign [...] Health Maintenance Results * Colonoscopy (01/24/2023) [facility] Colonoscopy No Interpretation , Abstracted Anatomical Region Laterality Modality Other [facility] Provider HEALTH MAINTENANCE Final Result * Annual BMP Blood Test (02/19/2022) [facility] Annual BMP Blood Test Abstracted [facility] Provider HEALTH MAINTENANCE Final Result * Lipid panel (02/19/2022) [facility] LDL/HDL Ratio 2 0 - 4 Triglycerides 98 0 - 150 mg/dL Cholesterol 199 0 - 200 mg/dL HDL 82 >=40 mg/dL LDL Cholesterol 98 0 - 100 mg/dL Blood Venous blood specimen / Unknown [facility] Provider LAB BLOOD ORDERABLES Henrietta l Result * Hepatitis C Screening (01/25/2016) [facility] Hepatitis C Screening Abstracted [facility] Provider HEALTH MAINTENANCE Final Result * Abdominal Aortic Aneurysm Screen (12/28/2014) [facility] Abdominal Aortic Aneurysm (AAA) Screening Abstracted Anatomical Region Laterality Modality Other [facility] Provider HEALTH MAINTENANCE Final Result from Last 3 Months or Most Recently Relevant to Health Maintenance Care Teams Police Artist Relationship Specialty Start Date End Date Carl Albright MD [address] [place] [address] PCP - General Internal Medicine 11/07/21
[2024-10-29 11:27] LABS: MANUAL DIFF FLAG NO
[2024-10-29 11:36] LABS: Basophils Percent Auto 0.8 % (0-2); Eosinophils Absolute Auto 0.1 X10*3/uL (0.0-0.4); Eosinophils Percent Auto 2.3 % (0-4); Hematocrit 38.7 % (42.0-52.0); Hemoglobin 13.1 g/dl (14.0-18.0); Imm Gran Abs Auto 0.02 X10*3/uL (0.00-0.03); Imm Gran Pct Auto 0.4 % (0.0-0.4); Lymphocytes Absolute Auto 1.1 X10*3/uL (1.2-4.9); Lymphocytes Percent Auto 21.2 % (20-40); Mean Corpuscular HGB Conc 33.9 g/dl (31.0-36.0); Mean Corpuscular Hemoglobin 31.4 pg (27.0-33.0); Mean Corpuscular Volume 92.8 fL (80.0-98.0); Monocytes Absolute Auto 0.5 X10*3/uL (0.1-1.2); Monocytes Percent Auto 9.1 % (2-11); Neutrophils Absolute Auto 3.4 x10*3/uL (2.0-8.3); Neutrophils Percent Auto 66.2 % (45-73); Platelet Count 208 X10*3/uL (160-400); Red Blood Count 4.17 X10*6/uL (4.60-5.80); Red Cell Distribution Width 12.9 % (11.0-16.0); White Blood Count 5.2 X10*3/uL (4.8-10.8)
[2024-10-29 12:09] LABS: Vitamin B12 447 pg/mL (200-900)
[2024-10-29 12:36] LABS: Alanine Aminotransferase 17 U/L (0-40); Alkaline Phosphatase 67 U/L (39-117); Anion Gap 12 (12-20); Aspartate Amino Transferase 25 U/L (5-37); Bilirubin Total 0.6 mg/dL (0.0-1.0); Blood Urea Nitrogen 19 mg/dL (9-16); Calcium 9.2 mg/dL (8.4-10.2); Carbon Dioxide 24 mmol/L (22-29); Chloride 108 mmol/L (96-108); Estimated Glomerular Filt Rate > 60; Ferritin 125 ng/mL (20-250); Glucose Random 77 mg/dL (60-115); Iron 80 mcg/dL (45-160); Percent Iron Saturation 33 % (15-50); Potassium 4.3 mmol/L (3.3-5.1); Sodium 140 mmol/L (135-145); Total Iron Binding Capacity 244 mcg/dL (228-428); Total Protein 6.6 g/dL (6.5-8.0); Unsaturated Iron Binding 164 ug/dL
[2024-10-30 06:28] LABS: Rubeola IgG (Measles) >300.00 AU/mL
[2024-11-03 16:03] LABS: Vitamin D 25-OH, D2 <4 ng/mL; Vitamin D 25-OH, D3 26 ng/mL; Vitamin D 25-OH, Total 26 ng/mL (30-100)
== END 2024-10-29 09:25 | disposition home or self-care (01) ==
LOC: HO.WFDLDS 09:24
PROVIDERS: Visit Provider Physician Assistant Medical
DX: Z00.00 Encounter for general adult medical examination without abnormal findings (principal); N28.1 Cyst of kidney, acquired; I71.40 Abdominal aortic aneurysm, without rupture, unspecified; M48.061 Spinal stenosis, lumbar region without neurogenic claudication; D64.9 Anemia, unspecified; G47.33 Obstructive sleep apnea (adult) (pediatric); N40.1 Benign prostatic hyperplasia with lower urinary tract symptoms; R35.0 Frequency of micturition; I65.23 Occlusion and stenosis of bilateral carotid arteries; I10 Essential (primary) hypertension; E78.00 Pure hypercholesterolemia, unspecified; M85.80 Other specified disorders of bone density and structure, unspecified site; I65.09 Occlusion and stenosis of unspecified vertebral artery; Z79.82 Long term (current) use of aspirin; Z79.899 Other long term (current) drug therapy; Z99.89 Dependence on other enabling machines and devices; Z01.84 Encounter for antibody response examination; Z91.89 Other specified personal risk factors, not elsewhere classified
CPT/HCPCS: 36415; 80053; 82306; 82607; 82728; 83540; 85025; 86735; 86762; 86765; 96127; 99397

== ENCOUNTER 2024-12-02 13:16 | Outpatient (REF) | payer MEDICARE, SELFPAY ==
--- NOTE | ~2024-12-02 | CT_ITS ---
CLINICAL HISTORY: CYST OF KIDNEY CT abdomen with and without contrast Comparison: None Findings: The lung bases are clear. There are innumerable hepatic cysts and multiple small bilateral renal cysts. There is borderline splenomegaly. Gallbladder is normal. Rest of the solid organs are unremarkable. No bowel obstruction, pneumoperitoneum, or pneumatosis. There are relatively severe calcific atherosclerotic changes of the abdominal aorta with mild fusiform aneurysmal dilatation of the infrarenal abdominal aorta measuring up to 3.6 cm in greatest diameter. There is severe stenosis at the proximal bilateral renal arteries and superior as well as inferior mesenteric trunks. The bones are intact. The visualized GI tract is unremarkable. IMPRESSION: 1. Innumerable hepatic cysts. Several small bilateral renal cysts are present. No enhancing lesions or solid masses are identified. 2. Borderline splenomegaly. 3. Infrarenal abdominal aortic aneurysm with severe calcific atherosclerotic changes as described above. Stenoses at the origins of the superior and inferior mesenteric arteries and bilateral renal arteries. This document has been electronically signed by: Dylan Mariano MD on 12/03/2024 11:23:13
--- OUTSIDE RECORDS SUMMARY | 2024-12-02 13:48 | XMS_ITS | Clinical Summary ---
Author Organization [facility] it Address [address] [place] [address] Care Team Providers Care Woodyard Crane Operator Name Role Phone Carl Albright MD Primary Care Provider [phone] Allergies Active Allergy Reactions Criticality Noted Date [...] (07/10/2024): Sleep study 12/05/2010 Sleep Disorder center [facility] Immunizations Name Administration Dates Next [...] COMMENT: Sleep study 12/05/2010 Sleep Disorder center [facility] BPH (benign prostatic hyperplasia) 01/24/2016 [...] 09/25/2023 2:04 PM EDT Plan of Treatment Upcoming Encounters Date Type Department Care Team (Late st Contact Info) Description 02/01/2025 10:15 AM EDT Office Visit Pulmonolgy - [place] [address] [place] [phone] Dorys Clements MD [address] [place] [address] Health Maintenance Due Date Last Done Comments [...] to Health Maintenance Results * Colonoscopy (01/24/2023) [facility] Colonoscopy No Interpretation , Abstracted Anatomical Region Laterality Modality Other [facility] Provider HEALTH MAINTENANCE Final Result * Annual BMP Blood Test (02/19/2022) [facility] Annual BMP Blood Test Abstracted [facility] Provider HEALTH MAINTENANCE Final Result * Lipid panel (02/19/2022) [facility] LDL/HDL Ratio 2 0 - 4 Triglycerides 98 0 - 150 mg/dL Cholesterol 199 0 - 200 mg/dL HDL 82 >=40 mg/dL LDL Cholesterol 98 0 - 100 mg/dL Blood Venous blood specimen / Unknown Result [facility] Provider LAB BLOOD ORDERABLES Henrietta l Result * Hepatitis C Screening (01/25/2016) Hepatitis C Screening Abstracted Historical Provider HEALTH MAINTENANCE Final Result * Abdominal Aortic Aneurysm Screen (12/28/2014) Pathologist [facility] Abdominal Aortic Aneurysm (AAA) Screening Abstracted Anatomical Region Laterality Modality Other Historical Provider HEALTH MAINTENANCE Final Result from Last 3 Months or Most Recently Relevant to Health Maintenance Care Teams Woodyard Crane Operator Relationship Specialty Start Date End Date Carl Albright MD [address] [place] [address] PCP - General Internal Medicine 11/07/21
[2024-12-02] MEDS: iohexoL 350 MG/ML 100 ML INFUS..BTL IV (14:03)
[2024-12-02 14:44] LABS: Creatinine POC 0.7 mg/dL (0.5-1.4); GFR POC > 60
== END 2024-12-02 13:17 | disposition home or self-care (01) ==
LOC: HO.CT 13:16
PROVIDERS: PCP Physician Assistant Medical; Visit Provider Urology
DX: N28.1 Cyst of kidney, acquired (principal)
CPT/HCPCS: 74170; 82565; Q9967

== ENCOUNTER → 2024-12-02 13:30 | Outpatient (BNV) | payer MEDICARE, SELFPAY | PROVIDERS: PCP Physician Assistant Medical; Visit Provider Radiology Diagnostic Radiology | DX: K76.89 Other specified diseases of liver (principal); N28.1 Cyst of kidney, acquired; I71.43 Infrarenal abdominal aortic aneurysm, without rupture; I70.0 Atherosclerosis of aorta | CPT/HCPCS: 74170 ==

== ENCOUNTER 2025-01-04 15:18 | Outpatient (AMB) | payer MEDICARE, SELFPAY ==
[2025-01-04 15:29] VITALS: BP 134/70; PULSE 78; O2SAT 96; BMI 28.5
--- NOTE | 2025-01-04 15:29 | HO.NEPHOV ---
Vital Signs 01/04/25 15:29 Height 5 ft 9 in Weight 193 lb BMI 28.5 BP 134/70 Blood Pressure Location Lt brachial Position Sitting Pulse 78 Pulse Source Pulse Oximeter Pulse Oximetry (%) 96 Oxygen Delivery Method Room Air Intake Visit Reasons: INP: Atherosclerosis of renal artery Budget Engineer Required: No Accompanied by: Self / Same As Patient Allergies Seasonal Allergies Allergy (Verified 01/04/25 15:30) Itchy eyes, runny nose Medication List - Last Reconciled 01/04/25 by Scott Haq MD alfuzosin ER 10 mg PO DAILY aspirin (Adult Low Dose Aspirin) 81 mg PO DAILY ketoconazole 2% 1 appl topical BID 21 days loratadine 10 mg PO DAILY losartan 75 mg (1.5 x 50 mg) PO DAILY 90 days naproxen sodium 440 mg PO DAILY rosuvastatin (Crestor) 20 mg PO DAILY tadalafil 5 mg PO DAILY HPI Comments Details: 74-year-old male presenting with renal artery stenosis and associated hypertension. The renal artery stenosis was identified following imaging studies that were initially conducted due to the presence of cysts in the liver and kidneys. The patient has a history of hypertension for approximately 10 years, which is currently managed with losartan, maintaining blood pressure within normal limits. The patient has a history of benign prostatic hyperplasia, which led to the initial referral to a urologist. During the evaluation for BPH, imaging revealed renal and hepatic cysts, prompting further investigation. The patient has a history of atherosclerosis, with less than 50% blockage in the carotid arteries, which is being monitored by vascular surgery. The patient also has an abdominal aortic aneurysm measuring 3.6 mm, which is under surveillance. The patient has a history of tobacco use, having smoked a pack a day for 20 years, but quit in 1984. He denies any current use of tobacco, alcohol, or illicit drugs. The patient reports a herniated disc, for which he takes naproxen as needed for pain management. He alternates naproxen with acetaminophen to minimize the risk of kidney injury, especially given his use of losartan. [facility] Medical History (Updated 12/29/24 @ 11:10 by CAM Hansen) Mesenteric artery stenosis Renal artery stenosis Routine physical examination Renal cyst, left Antibody response exam Abdominal aortic aneurysm Osteopenia Numbness Osteoarthritis Former cigarette smoker Upper back pain Lumbar spinal stenosis Spinal cord lesion Bilateral primary osteoarthritis of hip Bilateral hip pain Low back pain Mild anemia Lightheaded SMITH (dyspnea on exertion) Seasonal allergic rhinitis due to pollen JUAN on CPAP Psoriasis BPH (benign prostatic hyperplasia) Vertebral artery stenosis Bilateral carotid artery stenosis Pure hypercholesterolemia Essential hypertension Surgical History Hx of bilateral inguinal hernia repair (~2019) Hx of colonoscopy Family History Father Cancer Heart attack Mother High blood pressure Social History Household Members: Spouse Housing: House Are you a primary childcare attendant to a significant other at home: No Do you presently have visiting nurse or other home services: No Alcohol intake: current Alcohol intake frequency: holidays/special occasions only Patient Tobacco Use Status: Former Tobacco user Cigarette Packs Per Day: 1 Years Smoked: 15 years, hasn't smoked since mid e-Cigarette/Vaping Use: Never Used Second Hand Smoke Exposure: No service: No Current occupational status: retired Cognitive needs: No Hearing needs: No Vision needs: Yes (glasses) Review of Systems Const Denies fever(s) and Denies weight loss Card Denies chest pain Resp Denies cough and Denies hemoptysis GI Denies abdominal pain, Denies diarrhea and Denies nausea Neuro Denies focal weakness Physical Exam Vital Signs: Last Vital Signs Pulse 78 01/04/25 15:29 BP 134/70 01/04/25 15:29 Pulse Ox 96 01/04/25 15:29 Oxygen Delivery Method Room Air 01/04/25 15:29 BMI result Body Mass Index 28.5 Comfortable Neck supple no JVD. Lungs entry equal no rales. Heart S1-S2 heard no gallop or rub. Abdomen soft nontender. Neuro alert awake oriented. No asterixis. Extremities no edema. Results Reviewed Nephrology Results: Hgb, (14.0-18.0) 13.1 g/dl L 10/29/24 WBC, (4.8-10.8) 5.2 X10*3/uL 10/29/24 Plt Count, (160-400) 208 X10*3/uL 10/29/24 Sodium, (135-145) 140 mmol/L 10/29/24 Potassium, (3.3-5.1) 4.3 mmol/L 10/29/24 Chloride, (96-108) 108 mmol/L 10/29/24 Carbon Dioxide, (22-29) 24 mmol/L 10/29/24 BUN, (9-16) 19 mg/dL H 10/29/24 Creatinine, (0.5-1.4) 0.89 mg/dL 10/29/24 Calcium, (8.4-10.2) 9.2 mg/dL 10/29/24 Assessment & Plan Assessment & Plan (1) Essential hypertension: Code(s): I10 - Essential (primary) hypertension Category: Medical (2) Renal artery stenosis: Code(s): I70.1 - Atherosclerosis of renal artery Category: Medical Plan Severe LAURA reported on CTA But BP is well controlled with just 75 mg of Losartan Renal functino is STABLE for the past 18 months with a recent creatinine of 0.8 mg/dL I explained the nature of renal artery stenosis and its potential impact on blood pressure and kidney function. We discussed the risks and benefits of potential interventions, including the possibility of stenting if the BP is difficult to control with medications OR if the renal function worsens. I emphasized the importance of monitoring kidney function and blood pressure regularly and advised against any immediate invasive procedures given the current stability. We also reviewed the management of his benign prostatic hyperplasia and the benign nature of his renal and hepatic cysts, which require no immediate intervention. The patient was informed about the monitoring plan for his atherosclerosis and abdominal aortic aneurysm, with follow-up appointments scheduled with vascular surgery. I advised the patient on the safe use of naproxen, recommending alternating with acetaminophen to reduce the risk of kidney injury, and stressed the importance of staying hydrated. Orders: Orders Basic Metabolic Panel 2 Months I10 - Essential (primary) hypertension, I70.1 - Atherosclerosis of renal artery Total Protein Urine Random 2 Months I10 - Essential (primary) hypertension, I70.1 - Atherosclerosis of renal artery UA and rflx microscopic 2 Months I10 - Essential (primary) hypertension, I70.1 - Atherosclerosis of renal artery Creatinine Urine 2 Months I10 - Essential (primary) hypertension, I70.1 - Atherosclerosis of renal artery Coding Level of Care Code New Pt Level 4 (19371) Diagnoses Essential hypertension I10 Renal artery stenosis I70.1
--- OUTSIDE RECORDS SUMMARY | 2025-01-04 16:52 | XMS_ITS | Clinical Summary ---
Author Organization [facility] [address] it Address [address] [place] [address] Care Team Providers Care Media Developer Name Role Phone Carl Albright MD Primary Care Provider [phone] Allergies Active Allergy Reactions Criticality Noted Date [...] (07/10/2024): Sleep study 12/05/2010 Sleep Disorder center [facility] Immunizations Name Administration Dates Next Due [...] COMMENT: Sleep study 12/05/2010 Sleep Disorder center [facility] BPH (benign prostatic hyperplasia) 01/24/2016 DX:BPH [...] 10:15 AM EDT Office Visit Pulmonolgy - [facility] [address] [facility] [address] [place] [phone] Dorys Clements MD [address] [address] Health Maintenance Due Date Last Done Comments [...] to Health Maintenance Results * Colonoscopy (01/24/2023) [facility] Colonoscopy No Interpretation , Abstracted Anatomical Region Laterality Modality Other [facility] Provider HEALTH MAINTENANCE Final Result * Annual BMP Blood Test (02/19/2022) [facility] Annual BMP Blood Test Abstracted [facility] Provider HEALTH MAINTENANCE Final Result * Lipid panel (02/19/2022) [facility] LDL/HDL Ratio 2 0 - 4 Triglycerides 98 0 - 150 mg/dL Cholesterol 199 0 - 200 mg/dL HDL 82 >=40 mg/dL LDL Cholesterol 98 0 - 100 mg/dL Blood Venous blood specimen / Unknown [facility] Provider LAB BLOOD ORDERABLES Henrietta l Result * Hepatitis C Screening (01/25/2016) Hepatitis C Screening Abstracted us Historical Provider HEALTH MAINTENANCE Final Result * Abdominal Aortic Aneurysm Screen (12/28/2014) Abdominal Aortic Aneurysm (AAA) Screening Abstracted Anatomical Region Laterality Modality Other us Historical Provider HEALTH MAINTENANCE Final Result from Last 3 Months or Most Recently Relevant to Health Maintenance Insurance [employer] Care Teams Media Developer Relationship Specialty Start Date End Date Carl Albright MD [address] [place] [address] PCP - General Internal Medicine 11/07/21
== END 2025-01-04 15:54 | disposition home or self-care (01) ==
LOC: HO.HKA 15:19
PROVIDERS: Family Provider Physician Assistant Medical; PCP Physician Assistant Medical; Visit Provider Internal Medicine Hypertension Specialist
DX: I10 Essential (primary) hypertension (principal); I70.1 Atherosclerosis of renal artery
CPT/HCPCS: 99204

== ENCOUNTER → 2025-01-04 15:18 | Outpatient (BNVA) | payer MEDICARE, SELFPAY | PROVIDERS: Family Provider Physician Assistant Medical; PCP Physician Assistant Medical; Visit Provider Internal Medicine Hypertension Specialist | DX: I10 Essential (primary) hypertension (principal); I70.1 Atherosclerosis of renal artery | CPT/HCPCS: 99202 ==

== ENCOUNTER 2025-03-10 08:42 | Outpatient (AMB) | payer MEDICARE, SELFPAY ==
--- NOTE | 2025-03-10 08:45 | A.OFFVIS_ITS ---
Intake Visit Reasons: BPH/ urninary frequency second opinion Intake Note: Patient is present for BPH/URINARY FREQUENCY SECOND OPINION Urology Medication:TADALAFIL,ALFUZOSIN Antibiotic Allergy:NONE Blood Thinner:ASPIRIN TODAY'S PVR:145ML'S Butane Compressor Operator Required: No Allergies Seasonal Allergies Allergy (Verified 03/10/25 09:37) Itchy eyes, runny nose Medication List - Last Reconciled 03/10/25 by Muriel Courtney INTERLOCKER MAINTAINER- alfuzosin ER 10 mg PO DAILY aspirin (Adult Low Dose Aspirin) 81 mg PO DAILY loratadine 10 mg PO DAILY losartan 75 mg (1.5 x 50 mg) PO DAILY 90 days naproxen sodium 440 mg PO DAILY rosuvastatin (Crestor) 20 mg PO DAILY tadalafil 5 mg PO DAILY HPI Comments Details: Leonel is a pleasant 74-year-old male patient of Dr. Ayers. He has a past medical history of mesenteric artery stenosis, renal artery stenosis, renal cysts, abdominal aortic aneurysm, osteopenia, osteoarthritis, former cigarette smoker quit in the , lumbar spinal stenosis, spinal cord lesion, anemia, seasonal allergies, psoriasis, BPH, vertebral arterial stenosis, bilateral carotid artery stenosis, hypercholesteremia, and hypertension. He presents to the office today as a new patient for a 2nd opinion. In discussion with the patient today he reports a longstanding history of lower urinary tract symptoms that started over 10 years ago and had been following up with his PCP however more recently was referred to Urology through [facility] at which time he seen Dr. Barraza. He reports originally when lower urinary tract symptoms started he was given Flomax however most recently when following up with Dr. Barraza was switched to alfuzosin and low-dose Cialis. He denies any bothersome urinary issues. However he has been told he has incomplete bladder emptying. In office urinalysis results reviewed with the patient today. PVR 149 mL. In review of patient's chart as appear a retroperitoneal ultrasound was ordered and performed earlier this year. These results were reviewed and communicated with the patient today. 08/08 bilateral kidneys with no hydronephrosis or renal calculi. Left renal cysts noted. The urinary bladder is unremarkable. Postvoid bladder volume on day of imaging 200 mL. The prostate is enlarged measuring 57 mL. 3.6 cm abdominal aortic aneurysm. He reports he was to undergo potential TURP with Dr. Barraza however was enquiring further interventions for prostate procedure besides a TURP. We did discuss further interventions of enlarged prostate as well as incomplete bladder emptying. We discussed performing in office cystosco py for further assessment evaluation however he states he had this completed with Dr. Barraza. In review of patient's chart it appears PSA 01/05 2.8. When asked he denies urinary urgency, urinary frequency, incontinence, nocturia, hematuria, dysuria, foul smelling urine, flank pain, fever, and or chills. He does report changes to urinary stream however feels with alfuzosin and Cialis. [facility] Medical History Mesenteric artery stenosis Renal artery stenosis Routine physical examination Renal cyst, left Antibody response exam Abdominal aortic aneurysm Osteopenia Numbness Osteoarthritis Former cigarette smoker Upper back pain Lumbar spinal stenosis Spinal cord lesion Bilateral primary osteoarthritis of hip Bilateral hip pain Low back pain Mild anemia Lightheaded SMITH (dyspnea on exertion) Seasonal allergic rhinitis due to pollen JUAN on CPAP Psoriasis BPH (benign prostatic hyperplasia) Vertebral artery stenosis Bilateral carotid artery stenosis Pure hypercholesterolemia Essential hypertension Surgical History Hx of bilateral inguinal hernia repair (~2018) Hx of colonoscopy Family History Father Cancer Heart attack Mother High blood pressure Social History Household Members: Spouse Housing: House Are you a primary care manager cna to a significant other at home: No Do you presently have visiting nurse or other home services: No Alcohol intake: current Alcohol intake frequency: holidays/special occasions only Patient Tobacco Use Status: Former Tobacco user Cigarette Packs Per Day: 1 Years Smoked: 15 years, hasn't smoked since mid e-Cigarette/Vaping Use: Never Used Second Hand Smoke Exposure: No service: No Current occupational status: retired Cognitive needs: No Hearing needs: No Vision needs: Yes (glasses) Review of Systems Const All systems reviewed & are unremarkable except as noted in HPI and below Physical Exam Const General: cooperative, healthy appearing, comfortable, no acute distress, well developed, alert and awake Orientation/consciousness: patient oriented x3 Limitations: no limitations HEENT Head: Yes normal to inspection, Yes normocephalic and Yes atraumatic Ears: hearing grossly normal bilaterally Eyes General: appearance normal, both eyes and all related structures Neck Neck: Yes normal visual inspection and Yes trachea midline Chest Chest palpation & inspection: normal inspection of the chest Resp Effort & Inspection: normal respiratory effort and able to speak in complete sentences Cardio Rate: regular rate GI Inspection: Yes normal to inspection General: Yes no CVA tenderness Back/Spine/Pelvis Back: no CVA tenderness Skin General skin exam: no rashes or lesions noted Neuro General: patient oriented x3 Extrem General: Yes normal to inspection Psych Appearance: grossly normal and well kempt Mental Status: mental status grossly normal Speech and movement: Normal speech and movement present and Clear speech present Affect: normal affect Attitude: cooperative Thought process: Normal thought process present Thought content: Normal thought content present Insight: Fair insight present (Psych) Judgement: Fair judgement present (Psych) Office Procedures Post Void Residual Post Residual Void Post Void Residual (PVR): 145 02254-Abti Void Residual by ultrasound Results AMB Urinalysis, Automated UA Leukoctes 0 Macho/uL Last Edit by DOROTHY Walton on 03/10/25 09:00 UA Nitrite Negative Last Edit by DOROTHY Walton on 03/10/25 09:00 UA Urobilinogen 0.2 mg/dL Last Edit by DOROTHY Walton on 03/10/25 09:0 0 UA Protein 0 mg/dL Last Edit by DOROTHY Walton on 03/10/25 09:00 UA pH 6.0 Last Edit by DOROTHY Walton on 03/10/25 09:00 UA Blood 0 Jeffy/uL Last Edit by DOROTHY Walton on 03/10/25 09:00 UA Specific Boaz 1.015 Last Edit by DOROTHY Walton on 03/10/25 09: 00 UA Ketone Negative Last Edit by DOROTHY Walton on 03/10/25 09:00 UA Bilirubin 0 mg/dL Last Edit by DOROTHY Walton on 03/10/25 09:00 UA Glucose 0 mg/dL Last Edit by DOROTHY Walton on 03/10/25 09:00 Results Reviewed Results Reviewed: Laboratory Last Values Urine pH (Auto) 6.0 03/10/25 08:59 Specific Boaz (Auto) 1.015 03/10/25 08:59 Urine Protein (Auto) 0 mg/dL 03/10/25 08:59 Glucose (UA)(Auto) 0 mg/dL 03/10/25 08:59 Urine Ketones (Auto) Negative 03/10/25 08:59 Urine Blood (Auto) 0 Jeffy/uL 03/10/25 08:59 Urine Nitrite (Auto) Negative 03/10/25 08:59 Urine Bilirubin (Auto) 0 mg/dL 03/10/25 08:59 Urine Urobilinogen (Auto) 0.2 mg/dL 03/10/25 08:59 Leukocyte Esterase (Auto) 0 Macho/uL 03/10/25 08:59 Date of Service: 07/22/24 Procedure(s): US retroperitoneal comp FINDINGS: Right kidney: The right kidney measures 11.7 x 5.4 x 5.4 cm. Renal parenchymal echotexture and thickness are normal. There are no masses. There is no hydronephrosis or renal calculi. Left Kidney: The left kidney measures 9.8 x 5.3 x 5.9 cm. Renal parenchymal echotexture and thickness are normal. There is a 7 x 6 x 7 mm cyst at the lower pole demonstrating wall calcification. An additional 11 x 6 x 9 mm cyst is noted in the interpolar region. There is no hydronephrosis or renal calculi. The urinary bladder is unremarkable. Bilateral ureteral jets are identified. Before voiding, the urinary bladder measured 13.1 x 9.0 x 11.1 cm for an estimated volume of 688 mL. After voiding, the urinary bladder measured 8.4 x 6.3 x 6.7 cm for an estimated volume of 187 mL. The prostate is enlarged measuring 4.5 x 4.5 x 5.3 cm. Incidental note is made of mild aneurysmal dilatation of the abdominal aorta measuring up to 3.6 x 3.2 cm. There is a 10 mm hepatic cyst. IMPRESSION: 1. Left renal cysts as described, one of which demonstrates wall calcification. Follow-up is recommended. 2. Post void bladder residual of 187 mL. 3. 3.6 x 3.2 cm abdominal aortic aneurysm. Assessment & Plan Assessment & Plan (1) BPH (benign prostatic hyperplasia): Code(s): N40.0 - Benign prostatic hyperplasia without lower urinary tract symptoms Category: Medical Qualifiers: Lower urinary tract symptom detail: urinary frequency Lower urinary tract symptom presence: symptoms present Qualified Code(s): N40.1 - Benign prostatic hyperplasia with lower urinary tract symptoms; R35.0 - Frequency of micturition (2) Enlarged prostate: Code(s): N40.0 - Benign prostatic hyperplasia without lower urinary tract symptoms Category: Medical (3) Incomplete bladder emptying: Code(s): R33.9 - Retention of urine, unspecified Category: Medical Plan In office urinalysis results reviewed with the patient today; as noted above. PVR 149 mL. We did discuss at length enlarged prostate as well as incomplete bladder emptying; we discussed further interventions and risks and benefits of these interventions. All questions were answered. Continue alfuzosin and Cialis as prescribed Start finasteride Previous retroperitoneal ultrasound results were reviewed. Previous PSA results were reviewed. We did discussed cystoscopy GreenLight laser at length; risks and benefits Will schedule for cystoscopy GreenLight laser of the prostate Follow-up per doctor's orders; or sooner with any issues, concerns, and or questions. Orders: Orders AMB Urinalysis Automated Today Z13.9 - Encounter for screening, unspecified Medications: New finasteride 5 mg PO DAILY 90 tabs 1RF 90 days N13.8 - Other obstructive and reflux uropathy, N40.1 - Benign prostatic hyperplasia with lower urinary tract symptoms, R33.9 - Retention of urine, unspecified Patient Instructions: The patient had an opportunity to ask questions regarding the treatment plan. All questions were answered. Physical exam, labs, and imaging were discussed and reviewed in detail. As well as risks, benefits, and discussion of treatment choices. No major barriers to understanding were identified. The patient exp ressed understanding and agreement with the above treatment plan. The patient was made aware they should contact our office by phone for worsening of their current condition, the appearance of new symptoms, or with any questions or concerns. Compliance is encouraged with any medications and follow up testing that is ordered. It is a privilege to be allowed the opportunity to participate in? your urological care.? Again, if you have any questions or concerns If you have any questions or concerns please do not hesitate to contact me. The office is [phone]. This note is constructed using voice recognition software. While every effort has been made to ensure accuracy instrument mechanic weapons system errors may have been included. Yours sincerely, PASHA Young Coding Level of Care Code New Pt Level 4 (63881) Diagnoses Benign prostatic hyperplasia with urinary frequency N40.1; R35.0 Lower urinary tract symptom detail: urinary frequency Lower urinary tract symptom presence: symptoms present Enlarged prostate N40.0 Incomplete bladder emptying R33.9 CPT Codes Post Residual Void - PVR CPT Code: 22681-Wimx Void Residual by ultrasound ([id number])
--- OUTSIDE RECORDS SUMMARY | 2025-03-10 09:04 | XMS_ITS | Clinical Summary ---
Author Organization [address] [facility] Address [address] [place] [address] Phone Care Team Providers Care Automotive General Sales Manager Name Role Phone Carl Albright MD Primary Care Provider [phone] Allergies Active Allergy Reactions Criticality Noted Date Comments Other 10/25/2021 Seasonal Other Reaction(s): Runny Nose/Rhinitis Medications losartan (COZAAR) 50 mg tablet Take 1 tablet (50 mg total) by mouth 1 (one) time each day. 4 Active tamsulosin (FLOMAX) 0.4 mg 24 hr capsule Take 2 Capsules by mouth daily. Take 30 mins after same meal every day. 4 Active hydroCHLOROthiaz caelb (HYDRODIURIL) 25 mg tablet Take 1 tablet [...] under affected fingernails 1-2x daily prn Active aspirin 81 mg EC tablet Take 1 tablet (81 mg total) by mouth. 4 Active Active Problems Problem Noted Date Diagnosed Date Hyperlipemia 07/10/2024 Psoriasis 07/10/2024 Seasonal allergies 07/10/2024 Bilateral carotid artery stenosis 09/25/2023 Stenosis of both vertebral arteries 09/25/2023 History of COVID-19 11/08/2021 Seasonal allergic rhinitis due to pollen 019 Essential hypertension 08/09/2016 BPH (benign prostatic hyperplasia) 01/24/2016 Erectile dysfunction 01/24/2016 JUAN on CPAP 01/19/2015 Overview (07/10/2024): Sleep study 12/05/2010 Sleep Disorder center [facility] Immunizations Name Administration Dates Next Due [...] COMMENT: Sleep study 12/05/2010 Sleep Disorder center [facility] BPH (benign prostatic hyperplasia) 01/24/2016 DX:BPH [...] Cancer Screening: Stool Based Tests (FOBT/FIT) 06/23/2022 Falls Risk Assessment 06/23/2022 Medicare Annual Wellness Visit 06/23/2022 Social Influencers of Health Screening 06/23/2022 Hypertension/CHF/CAD Annual BMP Blood Test 02/19/2023 02/19/2022 COVID-19 Vaccine (4 - 2023-2 5 season) 2024 05/05/2021, 10/19/2020, 09/28/2020 RSV Immunization Adult Patients (1 - 1-dose 75+ series) 2024 Depression Screening 07/15/2024 Influenza Vaccine (#1) 2025 Cholesterol Screening (Lipid Panel) 02/19/2027 02/19/2022 [...] Health Maintenance Results * Colonoscopy (01/24/2023) Pathologist [facility] Colonoscopy No Interpretation , Abstracted Anatomical Region Laterality Modality Other Result [facility] Provider HEALTH MAINTENANCE Final Result * Annual BMP Blood Test (02/19/2022) [facility] Annual BMP Blood Test Abstracted Result [facility] Provider HEALTH MAINTENANCE Final Result * Lipid panel (02/19/2022) [facility] LDL/HDL Ratio 2 0 - 4 Triglycerides 98 0 - 150 mg/dL Cholesterol 199 0 - 200 mg/dL HDL 82 >=40 mg/dL LDL Cholesterol 98 0 - 100 mg/dL Blood Venous blood specimen / Unknown Result [facility] Provider LAB BLOOD ORDERABLES Henrietta l Result * Hepatitis C Screening (01/25/2016) [facility] Hepatitis C Screening Abstracted [facility] Provider HEALTH MAINTENANCE Final Result * Abdominal Aortic Aneurysm Screen (12/28/2014) Abdominal Aortic Aneurysm (AAA) Screening Abstracted Anatomical Region Laterality Modality Other Historical Provider HEALTH MAINTENANCE Final Result from Last 3 Months or Most Recently Relevant to Health Maintenance Insurance [employer] MEDICARE Care Teams Automotive General Sales Manager Relationship Specialty Start Date End Date Carl Albright MD [address] [place] [address] PCP - General Internal Medicine 11/07/21
== END 2025-03-10 09:37 | disposition home or self-care (01) ==
LOC: HO.HUSH 08:42
PROVIDERS: PCP Physician Assistant Medical; Visit Provider Nurse Practitioner Family
DX: N40.1 Benign prostatic hyperplasia with lower urinary tract symptoms (principal); R35.0 Frequency of micturition; N40.0 Benign prostatic hyperplasia without lower urinary tract symptoms; R33.9 Retention of urine, unspecified; Z13.9 Encounter for screening, unspecified
CPT/HCPCS: 99204

== ENCOUNTER → 2025-03-10 08:42 | Outpatient (BNVA) | payer MEDICARE, SELFPAY | PROVIDERS: PCP Physician Assistant Medical; Visit Provider Nurse Practitioner Family | DX: R33.9 Retention of urine, unspecified (principal); N40.1 Benign prostatic hyperplasia with lower urinary tract symptoms; R35.0 Frequency of micturition; Z13.9 Encounter for screening, unspecified | CPT/HCPCS: 51798; 81003; 99202 ==

== ENCOUNTER 2025-04-08 08:11 | Outpatient (REF) | payer MEDICARE, SELFPAY ==
--- OUTSIDE RECORDS SUMMARY | 2025-04-08 08:33 | XMS_ITS | Clinical Summary ---
Author Organization [address] [facility] Address [address] [place] [address] Phone Care Team Providers Care Cashier Wrapper Name Role Phone Carl Albright MD Primary Care Provider [phone]- [phone] Allergies Active Allergy Reactions Criticality Noted Date [...] (07/10/2024): Sleep study 12/05/2010 Sleep Disorder center [facility] Immunizations Name Administration Dates Next [...] COMMENT: Sleep study 12/05/2010 Sleep Disorder center [facility] BPH (benign prostatic hyperplasia) 01/24/2016 [...] Hypertension/CHF/CAD Annual BMP Blood Test 02/19/2023 02/19/2022 RSV Immunization Adult Patients (1 - 1-dose 75+ series) 2024 Depression Screening 07/15/2024 COVID-19 Vaccine (4 - 2024-2 6 season) 2025 05/05/2021, 10/19/2020, 09/28/2020 Influenza Vaccine (#1) 2025 Cholesterol Screening (Lipid [...] Health Maintenance Results * Colonoscopy (01/24/2023) Pathologist [facility] Colonoscopy No Interpretation , Abstracted Anatomical Region Laterality Modality Other Result [facility] Provider HEALTH MAINTENANCE Final Result * Annual BMP Blood Test (02/19/2022) [facility] Annual BMP Blood Test Abstracted Result [facility] Provider HEALTH MAINTENANCE Final Result * Lipid panel (02/19/2022) [facility] LDL/HDL Ratio 2 0 - 4 Triglycerides 98 0 - 150 mg/dL Cholesterol 199 0 - 200 mg/dL HDL 82 >=40 mg/dL LDL Cholesterol 98 0 - 100 mg/dL Blood Venous blood specimen / Unknown Result [facility] Provider LAB BLOOD ORDERABLES Henrietta l Result * Hepatitis C Screening (01/25/2016) [facility] Hepatitis C Screening Abstracted [facility] Provider HEALTH MAINTENANCE Final Result * Abdominal Aortic Aneurysm Screen (12/28/2014) Abdominal Aortic Aneurysm (AAA) Screening Abstracted Anatomical Region Laterality Modality Other Historical Provider HEALTH MAINTENANCE Final Result from Last 3 Months or Most Recently Relevant to Health Maintenance Insurance [employer] MED[employer]ARE Care Teams Cashier Wrapper Relationship Specialty Start Date End Date Carl Albright MD [address] [place] [address] PCP - General Internal Medicine 11/07/21
[2025-04-08 11:21] LABS: MANUAL DIFF FLAG NO
[2025-04-08 11:29] LABS: Hematocrit 36.1 % (42.0-52.0); Hemoglobin 12.2 g/dl (14.0-18.0); Imm Gran Abs Auto 0.07 X10*3/uL (0.00-0.03); Imm Gran Pct Auto 1.0 % (0.0-0.4); Lymphocytes Absolute Auto 1.5 X10*3/uL (1.2-4.9); Mean Corpuscular HGB Conc 33.8 g/dl (31.0-36.0); Mean Corpuscular Hemoglobin 31.6 pg (27.0-33.0); Mean Corpuscular Volume 93.5 fL (80.0-98.0); NRBC Abs Auto 0.000 X10*3/uL (0.0-0.012); NRBC Pct Auto 0.0 /100WBC (0.0-0.2); Platelet Count 234 X10*3/uL (160-400); Red Blood Count 3.86 X10*6/uL (4.60-5.80); White Blood Count 7.1 X10*3/uL (4.8-10.8)
[2025-04-08 11:54] LABS: Alanine Aminotransferase 42 U/L (0-40); Anion Gap 12 (12-20); Aspartate Amino Transferase 32 U/L (5-37); Blood Urea Nitrogen 24 mg/dL (9-16); Calcium 8.8 mg/dL (8.4-10.2); Carbon Dioxide 28 mmol/L (22-29); Chloride 105 mmol/L (96-108); Cholesterol 153 mg/dL (<200); Estimated Glomerular Filt Rate 60; HDL Cholesterol 50 mg/dL (>40); Potassium 4.2 mmol/L (3.3-5.1); Sodium 141 mmol/L (135-145); Triglycerides 80 mg/dL (<150)
[2025-04-08 15:08] LABS: Total Protein Urine Random < 7 mg/dL (<12)
[2025-04-08 15:36] LABS: Appearance Urine Clear; Glucose Urine UA Negative (Negative); PH 6.5 (5.0-9.0); Specific Gravity - Urine 1.015 (1.005-1.025); UMIC TRIGGER UA YES
== END 2025-04-08 08:12 | disposition home or self-care (01) ==
LOC: HO.WFDLDS 08:11
PROVIDERS: Internal Medicine Hypertension Specialist; Visit Provider Physician Assistant Medical
DX: I10 Essential (primary) hypertension (principal); I70.1 Atherosclerosis of renal artery; M25.551 Pain in right hip; M25.552 Pain in left hip; K55.1 Chronic vascular disorders of intestine; M54.50 Low back pain, unspecified; D64.9 Anemia, unspecified; E78.00 Pure hypercholesterolemia, unspecified; E78.5 Hyperlipidemia, unspecified
CPT/HCPCS: 36415; 80048; 80061; 81001; 81003; 82570; 84156; 84450; 84460; 85025

== ENCOUNTER 2025-04-12 09:42 | Outpatient (AMB) | payer MEDICARE, SELFPAY ==
[2025-04-12 09:45] VITALS: BP 140/62; PULSE 72; O2SAT 98
--- NOTE | 2025-04-12 09:45 | HO.NEPHOV_ITS ---
Vital Signs 04/12/25 09:45 Height 19 ft Weight 192 lb BMI 2.6 BP 140/62 H Blood Pressure Location Lt brachial Position Sitting Pulse 72 Pulse Source Pulse Oximeter Pulse Oximetry (%) 98 Oxygen Delivery Method Room Air Intake Visit Reasons: F/U Left V.M. Medicaid Analyst Required: No Accompanied by: Self / Same As Patient Allergies Seasonal Allergies Allergy (Verified 04/12/25 09:47) Itchy eyes, runny nose Medication List - Last Reconciled 04/12/25 by Scott Haq MD alfuzosin ER 10 mg PO DAILY aspirin (Adult Low Dose Aspirin) 81 mg PO DAILY finasteride 5 mg PO DAILY 90 days loratadine 10 mg PO DAILY losartan 75 mg (1.5 x 50 mg) PO DAILY 90 days naproxen sodium 440 mg PO DAILY rosuvastatin (Crestor) 20 mg PO DAILY tadalafil 5 mg PO DAILY HPI Comments Details: 74-year-old male presenting with renal artery stenosis and associated hypertension. The renal artery stenosis was identified following imaging studies that were initially conducted due to the presence of cysts in the liver and kidneys. The patient has a history of hypertension for approximately 10 years, which is currently managed with losartan, maintaining blood pressure within normal limits. The patient has a history of benign prostatic hyperplasia, which led to the initial referral to a urologist. During the evaluation for BPH, imaging revealed renal and hepatic cysts, prompting further investigation. The patient has a history of atherosclerosis, with less than 50% blockage in the carotid arteries, which is being monitored by vascular surgery. The patient also has an abdominal aortic aneurysm measuring 3.6 mm, which is under surveillance. The patient has a history of tobacco use, having smoked a pack a day for 20 years, but quit in 1984. He denies any current use of tobacco, alcohol, or illicit drugs. The patient reports a herniated disc, for which he takes naproxen as needed for pain management. He alternates naproxen with acetaminophen to minimize the risk of kidney injury, especially given his use of losartan. 04/12/25 History of Present Illness - The patient is a 74-year-old male presenting with follow-up for renal artery stenosis and hypertension management. - Renal artery stenosis and hypertension: Blood pressure stable in the 130s, recent reading 140 mmHg, on losartan 75 mg. - Benign prostatic hyperplasia: Scheduled for ablation on May 03, difficulty emptying bladder, on three medications. - Elevated creatinine levels: Recent creatinine 1.19 mg/dL, previously 1.03-1.04 mg/dL, fluctuation due to naproxen. - Herniated disc: Managed with alternating naproxen and Tylenol, week-on, week- off regimen. [facility] Medical History Mesenteric artery stenosis Renal artery stenosis Routine physical examination Renal cyst, left Antibody response exam Abdominal aortic aneurysm Osteopenia Numbness Osteoarthritis Former cigarette smoker Upper back pain Lumbar spinal stenosis Spinal cord lesion Bilateral primary osteoarthritis of hip Bilateral hip pain Low back pain Mild anemia Lightheaded SMITH (dyspnea on exertion) Seasonal allergic rhinitis due to pollen JUAN on CPAP Psoriasis BPH (benign prostatic hyperplasia) Vertebral artery stenosis Bilateral carotid artery stenosis Pure hypercholesterolemia Essential hypertension Surgical History Hx of bilateral inguinal hernia repair (~2019) Hx of colonoscopy Family History Father Cancer Heart attack Mother High blood pressure Social History Household Members: Spouse Housing: House Are you a primary career development consultant to a significant other at home: No Do you presently have visiting nurse or other home services: No Alcohol intake: current Alcohol intake frequency: holidays/special occasions only Patient Tobacco Use Status: Former Tobacco user Cigarette Packs Per Day: 1 Years Smoked: 15 years, hasn't smoked since mid e-Cigarette/Vaping Use: Never Used Second Hand Smoke Exposure: No service: No Current occupational status: retired Cognitive needs: No Hearing needs: No Vision needs: Yes (glasses) Physical Exam Vital Signs: Last Vital Signs Pulse 72 04/12/25 09:45 BP 140/62 H 04/12/25 09:45 Pulse Ox 98 04/12/25 09:45 Oxygen Delivery Method Room Air 04/12/25 09:45 BMI result Body Mass Index 2.6 Comfortable Neck supple no JVD. Lungs entry equal no rales. Heart S1-S2 heard no gallop or rub. Abdomen soft nontender. Neuro alert awake oriented. No asterixis. Extremities no edema. Results Reviewed Nephrology Results: Hgb, (14.0-18.0) 12.2 g/dl L 04/08/25 WBC, (4.8-10.8) 7.1 X10*3/uL 04/08/25 Plt Count, (160-400) 234 X10*3/uL 04/08/25 Sodium, (135-145) 141 mmol/L 04/08/25 Potassium, (3.3-5.1) 4.2 mmol/L 04/08/25 Chloride, (96-108) 105 mmol/L 04/08/25 Carbon Dioxide, (22-29) 28 mmol/L 04/08/25 BUN, (9-16) 24 mg/dL H 04/08/25 Creatinine, (0.5-1.4) 1.19 mg/dL 04/08/25 Calcium, (8.4-10.2) 8.8 mg/dL 04/08/25 Urine Protein, (Neg-Trace) Negative mg/dL 04/08/25 Urine Creatinine 57.70 mg/dL 04/08/25 Assessment & Plan Assessment & Plan (1) Essential hypertension: Code(s): I10 - Essential (primary) hypertension Category: Medical (2) Renal artery stenosis: Code(s): I70.1 - Atherosclerosis of renal artery Category: Medical Plan Severe LAURA reported on CTA But BP is well controlled with just 75 mg of Losartan Renal function is STABLE for the past 18 months with a recent creatinine of 0.8 mg/dL REcent Cr 1.19 Recheck Cr following Prostrate ablation We discussed the risks and benefits of potential interventions, including the possibility of stenting if the BP is difficult to control with medications OR if the renal function worsens. I emphasized the importance of monitoring kidney function and blood pressure regularly and advised against any immediate invasive procedures given the current stability. Benign Prostatic Hyperplasia - Ablation scheduled for May 03. - Maintain current medications until procedure. Avoid NSAIDS as much as possible. Orders: Orders Basic Metabolic Panel 3 Months I10 - Essential (primary) hypertension, I70.1 - Atherosclerosis of renal artery Coding Level of Care Code Est Pt Level 4 (56261) Diagnoses Essential hypertension I10 Renal artery stenosis I70.1
--- OUTSIDE RECORDS SUMMARY | 2025-04-12 10:35 | XMS_ITS | Clinical Summary ---
Author Organization [address] [facility] Address [address] [place] [address] Phone Care Team Providers Care Lap Winder Name Role Phone Carl Albright MD Primary Care Provider [phone] Allergies Active Allergy Reactions Criticality Noted Date [...] (07/10/2024): Sleep study 12/05/2010 Sleep Disorder center [facility] Immunizations Immunization Administration Dates Next Due Pneumococcal conjugate 13 [...] COMMENT: Sleep study 12/05/2010 Sleep Disorder center [facility] BPH (benign prostatic hyperplasia) 01/24/2016 DX:BPH [...] Health Maintenance Results * Colonoscopy (01/24/2023) Pathologist [facility] Colonoscopy No Interpretation , Abstracted Anatomical Region Laterality Modality Other Result [facility] Provider HEALTH MAINTENANCE Final Result * Annual BMP Blood Test (02/19/2022) [facility] Annual BMP Blood Test Abstracted Result [facility] Provider HEALTH MAINTENANCE Final Result * Lipid panel (02/19/2022) [facility] LDL/HDL Ratio 2 0 - 4 Triglycerides 98 0 - 150 mg/dL Cholesterol 199 0 - 200 mg/dL HDL 82 >=40 mg/dL LDL Cholesterol 98 0 - 100 mg/dL Blood Venous blood specimen / Unknown Result [facility] Provider LAB BLOOD ORDERABLES Henrietta l Result * Hepatitis C Screening (01/25/2016) [facility] Hepatitis C Screening Abstracted [facility] Provider HEALTH MAINTENANCE Final Result * Abdominal Aortic Aneurysm Screen (12/28/2014) Abdominal Aortic Aneurysm (AAA) Screening Abstracted Anatomical Region Laterality Modality Other Historical Provider HEALTH MAINTENANCE Final Result from Last 3 Months or Most Recently Relevant to Health Maintenance Insurance [employer] MED[employer]ARE Care Teams Lap Winder Relationship Specialty Start Date End Date Carl Albright MD [address] [place] [address] PCP - General Internal Medicine 11/07/21
== END 2025-04-12 10:01 | disposition home or self-care (01) ==
LOC: HO.HKA 09:43
PROVIDERS: PCP Physician Assistant Medical; Visit Provider Internal Medicine Hypertension Specialist
DX: I10 Essential (primary) hypertension (principal); I70.1 Atherosclerosis of renal artery
CPT/HCPCS: 99214

== ENCOUNTER → 2025-04-12 09:42 | Outpatient (BNVA) | payer MEDICARE, SELFPAY | PROVIDERS: PCP Physician Assistant Medical; Visit Provider Internal Medicine Hypertension Specialist | DX: I10 Essential (primary) hypertension (principal); I70.1 Atherosclerosis of renal artery | CPT/HCPCS: 99212 ==

== ENCOUNTER 2025-05-03 07:31 | Day surgery (SDC) | payer MEDICARE, SELFPAY ==
--- OUTSIDE RECORDS SUMMARY | 2025-04-12 16:19 | XMS_ITS ---
Author Name Ana Raymundo Address Unknown Organization [facility] Care Team Providers Care Stretching Press Operator Name Role Phone Unavailable Primary Care Physician Unavailab le History Of Present Illness This is a 74 year old male who is an established patient who is being seen for an evaluation of skin lesions.Location: body throughoutDuration: yearsPertinent History: actinic keratoses and basal cell skin cancer Pertinent Negatives: no history of melanoma and no family history of melanomaAdditional Visit Reasons: education and counseling about sun exposure, evaluation for suspicious growths, evaluation of current nevi, and surveillance against skin cancer recurrencesAdditional History: Patientpresents for a complete skin examination. Denies any areas of concern today. Medications Medication Generic Name RxNorm Strength Strength Unit Route Dose Dose Form Frequency Date Started Date Ended Status Indication Sig betamethaso ne dipropionat e betameth asone dipropio vivien 184497 0.05 % Topica l lotio n 01/05/20 20 suspend ed Appl y to scal p qd-b id prn betamethaso ne dipropionat e betameth asone dipropio vivien 974033 0.05 % Topica l small amoun t lotio n PRN 03/10/20 21 active Appl y to scal p qd-b id prn azelastine 137 mcg (0.1 %) Nasal aeros ol,sp ray suspend ed alfuzosin alfuzosi n 12 mg Oral 1 Table t, Exten ded Relea se 24 hr QD active atorvastati n 936425 40 mg Oral 1 table t QD suspend ed losartan 411371 50 mg Oral 1 table t QD active rosuvastati n rosuvast atin 20 mg Oral 1 table t QD active tadalafil tadalafi l 5 mg Oral 1 table t QD active tamsulosin 0.4 mg Oral 1 capsu le QD suspend ed [place] [facility]/FS Scalp Oil fluocino lone and shower cap 3695401 0.01 % Scalp oil 01/04/20 22 suspend ed Appl y to damp scal p at nigh t wash out in the am with sham poo repe at PRN [place] [facility]/FS Scalp Oil flu[place] lone and shower cap 6431767 0.01 % Scalp small amoun t oil PRN 07/23/19 25 active Appl y to damp scal p at nigh t wash out in the am with sham poo repe at PRN fluocinolon e and shower cap 0.01 % Scalp small amoun t oil PRN active Azelastine HCl NULL 12/04/19 19 suspend ed Betamethaso ne Dipropionat e NULL 09/08/19 16 active [place] [facility] Scalp NULL 12/13 09/03 19 suspend ed Desoximetas one NULL 09/08/19 16 active Diprosone NULL 04/05/20 10 suspend ed PEG 3350-KCl-Na Bicarb-NaCl NULL 09/12 12/01 17 active suldesonide cr NULL 09/27/19 17 active Tamsulosin HCl NULL 09/08/19 16 suspend ed Topicort NULL 04/05/20 10 suspend ed Triamcinolo ne Acetonide NULL 19 suspend ed Problems Problem Code Type Status Date of Diagnosis Da te of Resolution Actinic keratosis (disorder) (SN OMED) Diagnosis active 04/08/2025 Seborrheic dermatitis (disorder) 90603319(SNO MED) Diagnosis active 04/08/2025 Melanocytic nevus of trunk (disorder) 676663860(SN OMED) Diagnosis active 04/08/2025 Melanocytic nevus of skin of face (disorder) 4008631174(S NOMED) Diagnosis active 04/08/2025 Melanocytic nevus of left lower limb (disorder) 080379042692 106(SNOMED) Diagnosis active 04/08/2025 Melanocytic nevus of right lower limb (disorder) 526284566859 108(SNOMED) Diagnosis active 04/08/2025 History of malignant neoplasm of skin (situation) 272368045(SN OMED) Diagnosis active 04/08/2025 Neoplasm of uncertain behavior of skin (disorder) 67917222(SNO MED) Diagnosis active 03/19/2024 Actinic keratosis (disorder) (SN OMED) Diagnosis active 03/19/2024 Seborrheic dermatitis (disorder) 34305693(SNO MED) Diagnosis active 03/19/2024 Melanocytic nevus of trunk (disorder) 100328033(SN OMED) Diagnosis active 03/19/2024 Melanocytic nevus of region of face (disorder) 5491850932(S NOMED) Diagnosis active 03/19/2024 Melanocytic nevus of left lower limb (disorder) 992687203294 106(SNOMED) Diagnosis active 03/19/2024 Melanocytic nevus of right lower limb (disorder) 879538537114 108(SNOMED) Diagnosis active 03/19/2024 History of malignant neoplasm of skin (situation) 637735627(SN OMED) Diagnosis active 03/19/2024 Seborrheic dermatitis (disorder) 41475994(SNO MED) Diagnosis active 03/12/2023 Melanocytic nevus of left lower limb (disorder) 171689552768 106(SNOMED) Diagnosis active 03/12/2023 Melanocytic nevus of lower limb (disorder) 215884533(SN OMED) Diagnosis active 03/12/2023 Melanocytic nevus of face (disorder) 388940013(SN OMED) Diagnosis active 03/12/2023 Melanocytic nevus of trunk (disorder) 801127237(SN OMED) Diagnosis active 03/12/2023 History of malignant neoplasm of skin (situation) 367060314(SN OMED) Diagnosis active 03/12/2023 Seborrheic keratosis (disorder) 528846681(SN OMED) Diagnosis active 03/12/2023 Melanocytic nevus of face (disorder) 568594200(SN OMED) Diagnosis active 03/12/2022 Melanocytic nevus of trunk (disorder) 183734923(SN OMED) Diagnosis active 03/12/2022 Melanocytic nevus of left lower limb (disorder) 143237117272 106(SNOMED) Diagnosis active 03/12/2022 Melanocytic nevus of lower limb (disorder) 465067832(SN OMED) Diagnosis active 03/12/2022 Neoplasm of uncertain behavior of skin (disorder) 50015737(SNO MED) Diagnosis active 03/12/2022 Seborrheic keratosis (disorder) 593796932(SN OMED) Diagnosis active 03/12/2022 History of malignant neoplasm of skin (situation) 613299974(SN OMED) Diagnosis active 03/12/2022 Neoplasm of uncertain behavior of skin (disorder) 41435816(SNO MED) Diagnosis active 03/10/2021 Seborrheic dermatitis (disorder) 82732277(SNO MED) Diagnosis active 03/10/2021 Seborrheic keratosis (disorder) 114227395(SN OMED) Diagnosis active 03/10/2021 Melanocytic nevus of trunk (disorder) 571042816(SN OMED) Diagnosis active 03/10/2021 Melanocytic nevus of left lower limb (disorder) 359966481014 106(SNOMED) Diagnosis active 03/10/2021 Melanocytic nevus of face (disorder) 234706868(SN OMED) Diagnosis active 03/10/2021 History of malignant neoplasm of skin (situation) 756343053(SN OMED) Diagnosis active 03/10/2021 Personal history of other malignant neoplasm of skin Z85.828(ICD- 10) Diagnosis active 01/05/2020 Other seborrheic dermatitis L21.8(ICD-10 ) Diagnosis active 01/05/2020 Melanocytic nevi of left lower limb, including hip D22.72(ICD-1 0) Diagnosis active 01/05/2020 Melanocytic nevi of right lower limb, including hip D22.71(ICD-1 0) Diagnosis active 01/05/2020 Melanocytic nevi of trunk D22.5(ICD-10 ) Diagnosis active 01/05/2020 Person with feared health complaint in whom no diagnosis is made Z71.1(ICD-10 ) Diagnosis active 01/05/2020 Seborrheic dermatitis (disorder) 60853006(SNO MED) Diagnosis active 12/24/2018 Encounter for immunization Z23(ICD-10) Diagnosis active 12/03/2018 Disorder of skin and/or subcutaneous tissue (disorder) 90651992(SNO MED) Diagnosis active 12/03/2018 Neoplasm of uncertain behavior of skin (disorder) 06905370(SNO MED) Diagnosis active 03/19/2018 Inflamed seborrheic keratosis (disorder) 553347851(SN OMED) Diagnosis active 08/28/2017 Melanocytic nevus of trunk (disorder) 274044624(SN OMED) Diagnosis active 09/26/2016 History of pneumonia (situation) 640179574(SN OMED) Diagnosis active 09/08/2015 Melanocytic nevus of trunk (disorder) 139132487(SN OMED) Diagnosis active 09/08/2015 Psoriasis (disorder) 9272405(SNOM ED) Diagnosis active 09/09/2014 History of hypertension (situation) 179653919(SN OMED) Problem active Basal cell carcinoma of skin (disorder) 038814502(SN OMED) Problem active Actinic keratosis (disorder) 908747062(SN OMED) Problem active Results No data Encounters Service provided at [facility], [address] [place] [address], [address], [place], [place] [id number]. Office phone number is [phone]. Office fax number is [phone]. Encounter Diagnosis Location Date / Time Type Actinic Keratoses (L57.0)Tucker orrheic Dermatitis (L21.8)Benign Appearing Nevi (D22.5,D22.39,D22.72,D22.71)History of Basal Cell Carcinoma (Z85.828) [facility] 04/08/2025 11:15:00 [facility] [id number] Reason For Referral No data Procedures Procedure Date Documentation of current medications (pr ocedure) 04/08/2025 12:00 am [place] Shave biopsy (procedure) 03/19/2024 12:0 0 am UTC Destruction of premalignant skin lesion (procedure) 03/19/2024 12:00 am UTC Shave biopsy (procedure) 03/10/2021 12:0 0 am UTC Documentation of past medical history (p rocedure) Documentation of past medical history (p rocedure) Documentation of past medical history (p rocedure) Documentation of past medical history (p rocedure) Documentation of past medical history (p rocedure) Documentation of past medical history (p rocedure) Documentation of past medica l history (procedure) Hernia surgery 2016 Review Of Systems Provider reviewed on Apr 08, 2025.A focused review of systems was performed including Integumentary.No Problems With Healing And No Problems With Scarring (hypertrophic Or Keloid). Assessment 1.Actinic Keratoses - Actinic injury on the nose is quite subtle and probably does not require aggressive treatment at this time.Counseling2.Seborrheic DermatitisPrescription Medication Management: Continue Regimen - Generic Diprosone lotion can still be used on scalp and [place] FS oil can be used on scalp or ears..3.Benign Appearing NeviCounseling4.History of Basal Cell CarcinomaReassurance Plan of Care Future visit for 04/08/2026 - Follow up in 1 year. Other Instructions: cse. Other Instructions: cse. Code Detail Instructions 9078190 [place]/FS Scalp Oil 0.01 % Apply to damp scalp at night wash out in the am with shampoo repeat PRN 306384 betamethasone diprop ionate 0.05 % lotion Apply to scalp qd-bid prn 1004954 [place]/FS Scalp Oil 0.01 % Apply to damp scalp at night wash out in the am with shampoo repeat PRN 677905 betamethasone diprop ionate 0.05 % lotion Apply to scalp qd-bid prn 787460 betamethasone diprop ionate 0.05 % lotion Apply to scalp qd-bid prn Instructions * I counseled the patient regarding the following:Handout on nicotinamide was provided to patient. Patient can check with pharmacy and PCP if this is suitable to take.I recommended the following: Nicotinamide (Vitamin B3) SupplementationBroad Spectrum Sunscreen SPF 30+ * I counseled the patient regarding the following:Instructions: Periodic self- skin checks to monitor for any changes in moles are recommended.Contact Office if: Any moles change in size, shape or color; itch, burn or bleed.Patient advised to use sunscreen on a regular basis Social History Code Activity Start Date End Date 2076098 (SNOMED) Former smoker Sex male Sexual orientation Unspecified Gender identity Unspecified Vital Signs No data
--- NOTE | 2025-04-29 10:35 | HO.ANESPROP2 ---
Documented by User: Ondina Whelan NP 04/29/25 11:06 HPI - Anesthesia Eval Consult details Narrative: 74yo M for Laser Ablation Prostate w/Green Light [place] [facility] [place] artery calcifications. Stress and Echo done early 2024 for potential preop spine surgery (not done), but deemed optimized by Dr Tang. (Abnormal Exercise stress reviewed and OK) [place] [facility] [place]: Severe LAURA reported on CTA Per 03/2025 office visit But BP is well controlled with just 75 mg of Losartan Renal function is STABLE for the past 18 months with a recent creatinine of 0.8 mg/dL REcent Cr 1.19 Recheck Cr following Prostrate ablation PMFSH Active Problems Active Problems: All Active Problems Incomplete bladder emptying (Acute) Enlarged prostate (Acute) Mesenteric artery stenosis (Acute) Renal artery stenosis (Acute) Routine physical examination (Acute) Renal cyst, left (Acute) Antibody response exam (Acute) Abdominal aortic aneurysm (Acute) Abnormal exercise tolerance test (Acute) Osteopenia (Acute) Preop cardiovascular exam (Acute) Lumbar radiculopathy (Acute) Lumbar spinal stenosis (Acute) Bilateral primary osteoarthritis of hip (Acute) Bilateral hip pain (Acute) Low back pain (Acute) Mild anemia (Acute) Lightheaded (Acute) SMITH (dyspnea on exertion) (Acute) Seasonal allergic rhinitis due to pollen (Acute) JUAN on CPAP (Acute) Psoriasis (Acute) BPH (benign prostatic hyperplasia) (Acute) Vertebral artery stenosis (Acute) Bilateral carotid artery stenosis (Acute) Pure hypercholesterolemia (Acute) Essential hypertension (Acute) Past Medical History Medical History Mesenteric artery stenosis Renal artery stenosis Routine physical examination Renal cyst, left Antibody response exam Abdominal aortic aneurysm Osteopenia Numbness Osteoarthritis Former cigarette smoker Upper back pain Lumbar spinal stenosis Spinal cord lesion Bilateral primary osteoarthritis of hip Bilateral hip pain Low back pain Mild anemia Lightheaded SMITH (dyspnea on exertion) Seasonal allergic rhinitis due to pollen JUAN on CPAP Psoriasis BPH (benign prostatic hyperplasia) Vertebral artery stenosis Bilateral carotid artery stenosis Pure hypercholesterolemia Essential hypertension Family History Family History Father Cancer Heart attack Mother High blood pressure Surgical History Surgical History Hx of bilateral inguinal hernia repair (~2019) Hx of colonoscopy Social History Social History Household Members: Spouse Housing: House Are you a primary manager critical care unit to a significant other at home: No Do you presently have visiting nurse or other home services: No Alcohol intake: current Alcohol intake frequency: holidays/special occasions only Patient Tobacco Use Status: Former Tobacco user Cigarette Packs Per Day: 1 Years Smoked: 15 years, hasn't smoked since mid e-Cigarette/Vaping Use: Never Used Second Hand Smoke Exposure: No Use of substances other than those prescribed or required for medical reasons: No Have you been hit, kicked, punched, or otherwise hurt by someone within the past year? If so, by whom?: No Are you DNR?: No Advance Directives: No Advance Directives Information Provided: Yes Advance Directives on File: No Poor oral hygiene: No service: No Current occupational status: retired Cognitive needs: No Hearing needs: No Vision needs: Yes (glasses) Meds Allergies Allergy/AdvReac Type Severity Reaction Status Date / Time Seasonal Allergies Allergy Itchy Verified 04/12/25 09:47 eyes, runny nose Home Medications ?Medication ?Instructions ?Recorded ?Confirmed ?Last Taken ?Type aspirin 81 mg tablet,delayed 81 mg PO DAILY 01/30/24 04/12/25 Unknown History release (Adult Low Dose Aspirin) loratadine 10 mg tablet 10 mg PO DAILY 06/05/24 04/12/25 Unknown History tadalafil 5 mg tablet 5 mg PO DAILY 10/29/24 04/12/25 Unknown History naproxen sodium 220 mg tablet 440 mg PO DAILY 01/04/25 04/12/25 Unknown History Exam Pertinent Lab Results Pertinent Lab Results: Laboratory Tests 04/08/25 08:14 WBC 7.1 Hgb 12.2 L Hct 36.1 L Plt Count 234 Sodium 141 Potassium 4.2 Chloride 105 Carbon Dioxide 28 BUN 24 H Creatinine 1.19 Narrative Narrative: EKG 01/2024 SR with 1st deg AV block LAD ECHO 2023 Conclusions: - Normal left ventricular size and systolic function. There is mildly increased left ventricular wall thickness. The visually estimated ejection fraction is between 55-60%. - Mildly increased right ventricular cavity size. There is normal right ventricular systolic function. Exercise Stress 2023 Protocol: FRANKLIN Max HR: 144 BPM 99% of Pred: 145 BPM Max BP: 138/058 mmHG Max Work Load: 7.6 METS Exercise Stress Test with exercise 6 mins 26 secs of Franklin Protocol, achieving 98% MPHR, with reports of 2/10 mid chest tightness that started at Stage 2 and stayed consistent through the exercise, resolved quickly during recovery. With isolated PACs, frequent PVCs, and atrial runs- max 5 beats. With normotensive response to exercise. With borderline ST changes noted inferiorly, in leads I, V4 and V5; suggestive of ischemia (interpretation harder due to artifacts). Will order Exercise stress test with Nuclear imagings. Test reviewed with Dr. Qureshi. carotid duplex BI 2023 IMPRESSION: 1. RIGHT: Minimal, non-hemodynamically significant stenosis of the proximal right internal carotid artery corresponding to a 0-49% stenosis by velocity criteria. 2. LEFT: Minimal, non-hemodynamically significant stenosis of the proximal left internal carotid artery corresponding to a 0-49% stenosis by velocity criteria. Assessment and Plan Assessment Anesthesia Assessment: Chart Reviewed Documented by User: Michelle Hearn MD 05/03/25 09:10 [facility] Past Medical History Medical History Mesenteric artery stenosis Renal artery stenosis Routine physical examination Renal cyst, left Antibody response exam Abdominal aortic aneurysm Osteopenia Numbness Osteoarthritis Former cigarette smoker Upper back pain Lumbar spinal stenosis Spinal cord lesion Bilateral primary osteoarthritis of hip Bilateral hip pain Low back pain Mild anemia Lightheaded SMITH (dyspnea on exertion) Seasonal allergic rhinitis due to pollen JUAN on CPAP Psoriasis BPH (benign prostatic hyperplasia) Vertebral artery stenosis Bilateral carotid artery stenosis Pure hypercholesterolemia Essential hypertension Family History Family History Father Cancer Heart attack Mother High blood pressure Family history of problems with anesthesia: No Surgical History Surgical History Hx of bilateral inguinal hernia repair (~2019) Hx of colonoscopy History of Problems with Anesthesia: No Social History Social History Household Members: Spouse Housing: House Are you a primary manager critical care unit to a significant other at home: No Do you presently have visiting nurse or other home services: No Alcohol intake: current Alcohol intake frequency: holidays/special occasions only Patient Tobacco Use Status: Former Tobacco user Cigarette Packs Per Day: 1 Years Smoked: 15 years, hasn't smoked since mid e-Cigarette/Vaping Use: Never Used Second Hand Smoke Exposure: No Use of substances other than those prescribed or required for medical reasons: No Have you been hit, kicked, punched, or otherwise hurt by someone within the past year? If so, by whom?: No Are you DNR?: No Advance Directives: No Advance Directives Information Provided: Yes Advance Directives on File: No Poor oral hygiene: No service: No Current occupational status: retired Cognitive needs: No Hearing needs: No Vision needs: Yes (glasses) Meds Allergies Allergy/AdvReac Type Severity Reaction Status Date / Time Seasonal Allergies Allergy Itchy Verified 04/12/25 09:47 eyes, runny nose Home Medications ?Medication ?Instructions ?Recorded ?Confirmed ?Last Taken ?Type aspirin 81 mg tablet,delayed 81 mg PO DAILY 01/30/24 04/12/25 Unknown History release (Adult Low Dose Aspirin) loratadine 10 mg tablet 10 mg PO DAILY 06/05/24 04/12/25 Unknown History tadalafil 5 mg tablet 5 mg PO DAILY 10/29/24 04/12/25 Unknown History naproxen sodium 220 mg tablet 440 mg PO DAILY 01/04/25 04/12/25 Unknown History Exam Airway Mallampati Class: II TM Dist: >3cm Neck ROM: Limited Heart: rrr Lungs: cta Assessment and Plan Assessment Anesthesia Assessment: Anesthesia Plan Discussed Final Anesthetic Review Family History of Problems with Anesthesia: No History of Problems with Anesthesia: No NPO: Yes ASA Class: III Final Preanesthetic Review: No Changes in Pt Med Stat, Meds/Allgs Chart Reviewed, Consent Obtained/Reviewed and Anes Risks/Benef Reviewed Patient Risk: Intermediate Procedure Risk: Low Anesthetic Plan Anesthetic Plan: GA and Agree w/ Assess. and Plan Disposition: Standard PACU
[2025-04-29 10:45] VITALS: BMI 28.5
[2025-05-03] VITALS (7 sets, daily range): BP systolic 121–156; BP diastolic 61–74; PULSE 58–76; RESP 16–17; TEMP 36.2–36.4; O2SAT 97–99; BMI 28.1
[2025-05-03] MEDS: Lactated Ringers 1,000 ML 100 ML IVCONT (08:20)
--- NOTE | 2025-05-03 08:57 | P.HPSUR_ITS ---
Pre-Procedural Eval Section A - 24 Hr Update-Section A only Date of Service: 05/03/25 The patient is an INPATIENT: No Changes since office visit: No Cold of Flu in the past 2 weeks, No New Medical Problems, No Changes in Medication and No Patient answered all questions The patient has been examined within 24 hours of the surgical procedure. The History & Physical has been completed within 30 days and I have reviewed it.: No Section B - Complete if H&P > 30 days Chief Complaint: Benign prostatic hyperplasia without lower urinary Details of Present Illness: High residual 150 cc with 60 cc prostate. Relevant Family History (Specify if Yes): No Relevant Social History: None Present Medications: see Short Stay Collaborative assessment Medical History: No relevant PMH History of Previous Operations: No relevant previous surgery Allergies: Allergies Allergy/AdvReac Type Severity Reaction Status Date / Time Seasonal Allergies Allergy Itchy Verified 04/12/25 09:47 eyes, runny nose Review of Systems Sugical H&P ROS: Negative: Constitution, Cardiovascular, Respiratory, Neurological, Psychiatric, Hem-Onc, Allergic/Immunologic, Gastrointestinal, G enitourinary, Musculoskeletal, Integumentary, Endocrine and Eyes/Ears/Nose/Throat Exam Surgical H&P Exam: Normal: HEENT, Normal: Heart, Normal: Lungs, Normal: Extremities, Normal: Abdomen, Normal: Skin and Normal: Neurological Plan Diagnosis/Plan: Unchanged I have reviewed the history and physical and performed a pertinent physical examination on my patient. No changes have occurred unless specified. Time Spent With Patient Time: Total time managing care of this patient today ____ minutes.
--- NOTE | 2025-05-03 12:18 | P.OP_ITS ---
Operative Note Operative Note Date of Service: 05/03/25 Narrative: PreOperative Diagnosis: Bladder outlet obstruction Post Operative Diagnosis: Bladder outlet obstruction Procedure: GreenLight Laser Enucleation of the prostate CPT 06351 Surgeon: Dr Primitivo Bañuelos Anesthesia: General History of bladder outlet obstruction. Treated with alpha-yves and other medications. Still with symptoms. On cystoscopy in office has tight bladder neck. Recommendation for prostate procedure with laser enucleation of prostate. 50 g prostate Risks and benefits have been discussed. Focus was placed on development of retrograde ejaculation which is a normal part of this procedure. Published revision rates are approximately 30-50% at 8-10 years following the procedure. Procedure: After informed consent was verified the patient was brought to the operating room and placed in a supine position. Anesthesia was administered per protocol. Patient was placed in modified dorsal lithotomy position and prepped and draped in a sterile fashion. Safety pause time-out was confirmed. Antibiotics have been given. A Twenty-four Jamaican laser cystoscope was inserted per urethra. No abnormalities were found of the anterior and bulbar urethra. The prostatic urethra shows tight bladder neck. The bladder was examined and both ureteric orifices were seen in their normal positions away from the area of interest. Bladder trabeculation grade 1/2. A GreenLight laser with attached pressure bag Normal Saline cooling irrigation was used. At initial setting of 80 venegas incisions were made at the 5 and 7 o'clock position. The incisions were taken down from the bladder neck down to the area just proximal of the veru. These were gradually deepened in order to define the lateral aspects of the median lobe area and separate the lateral lobe areas from the median lobe.. The deep boundary of enucleation was defined by the prostate surgical capsule. Once clearly defined the grooves were extended in the lateral directions in order to create a deep groove and begin to undermined the lateral lobe areas.. The median lobe was then ablated and enucleated tissue released into the bladder with the laser power increased to 120 W. this was accomplished by approaching the median lobe from each lateral incision and working from lateral to medial. Relatively small median lobe. Once the median lobe area had been cleared, attention was directed to the lateral lobes. Starting with the patient's left lateral lobe. First the 05:00 o'clock groove was further developed. This was moved in the lateral direction to undermine the tissue on the lateral side running from the bladder neck to the prostate apex. The ureteric orifice was used to guide incisions. The laser fiber was placed at the 1 o'clock position and a secondary groove was developed down to the level of prostatic capsule. The creation of a second de ep groove defined a segment of intervening tissue similar to a slice of orange. At the apex of the prostate the laser was used to vertically link the two grooves releasing the intervening tissue and creating a segment of tissue. This tissue was then removed with a combination of enucleation and ablation working from the apex toward the bladder neck. A similar procedure was repeated on the patient's right-hand side. The only differences being the position of the lateral groove at the 7 o'clock position and the secondary groove at the 11 o'clock position, Otherwise the procedure was developed in a mirror fashion. Laser power 120 w. After the majority of tissue had been debulked remnant tissue was ablated with the side fire laser and the curve of the prostate followed up each side wall c learly defining the anterior remnant strip that remained between the 11 and 1 o'clock positions. At completion debris and pieces of prostate were removed from the bladder with irrigation. Both ureteric orifices were reviewed again in shown to be patent in away from any areas of energy damage. The apical area was reviewed and any stray mucosal ooze was controlled. A 22 Jamaican 30 cc balloon Davis catheter was placed into the bladder using a flexible stylet. Clear efflux was obtained upon irrigation with a Daniel piston syringe. 30 cc was placed in the balloon and gentle traction was placed. A snap was used to hold tension on the catheter to control bleeding during patient moved and transported. A drainage bag was placed. A belladonna and opiate suppository was placed in order to assist in postprocedure pain management. Once transportation is complete to the PACU the snap will be removed. The patient tolerated the procedure well, he was extubated in the operating and transferred in a stable condition to the recovery area. Total Power 136 kJ Lasing time 20:53 Procedure time 30 min Pathology: Prostate tissue Drains: Davis catheter
== END 2025-05-03 14:23 | disposition home or self-care (01) ==
PROVIDERS: PCP Physician Assistant Medical; Visit Provider Urology
PROC: (CPT 52648; principal; 2025-05-03 10:30)
DX: N40.1 Benign prostatic hyperplasia with lower urinary tract symptoms (principal); N32.0 Bladder-neck obstruction; R35.0 Frequency of micturition; R33.9 Retention of urine, unspecified; C61 Malignant neoplasm of prostate; N32.89 Other specified disorders of bladder; I70.1 Atherosclerosis of renal artery; N28.1 Cyst of kidney, acquired; I71.40 Abdominal aortic aneurysm, without rupture, unspecified; K55.1 Chronic vascular disorders of intestine; I65.09 Occlusion and stenosis of unspecified vertebral artery; I65.23 Occlusion and stenosis of bilateral carotid arteries; I10 Essential (primary) hypertension; E78.00 Pure hypercholesterolemia, unspecified; J30.1 Allergic rhinitis due to pollen; Z79.82 Long term (current) use of aspirin; Z79.899 Other long term (current) drug therapy; Z87.891 Personal history of nicotine dependence
CPT/HCPCS: 52649; 88305; 88344; J1956; J2003; J2704; J3010

== ENCOUNTER → 2025-05-03 07:31 | Outpatient (BNV) | payer MEDICARE, SELFPAY | PROVIDERS: PCP Physician Assistant Medical; Visit Provider Urology | DX: N32.0 Bladder-neck obstruction (principal) | CPT/HCPCS: 52649 ==

== ENCOUNTER → 2025-05-05 08:38 | Outpatient (BNVA) | payer MEDICARE, SELFPAY | PROVIDERS: PCP Physician Assistant Medical; Visit Provider Urology | DX: Z48.816 Encounter for surgical aftercare following surgery on the genitourinary system (principal); N40.1 Benign prostatic hyperplasia with lower urinary tract symptoms; R33.9 Retention of urine, unspecified; R35.0 Frequency of micturition | CPT/HCPCS: 51700; 51702 ==

== ENCOUNTER 2025-05-06 08:45 | Outpatient (AMB) | payer MEDICARE, SELFPAY ==
--- NOTE | 2025-05-06 08:49 | MHC.PC.OV ---
Vital Signs 05/06/25 08:53 Height 5 ft 9 in Weight 192 lb 8 oz BMI 28.4 BP 126/64 Blood Pressure Location Lt brachial Position Sitting Respiration 17 Pulse 79 Pulse Source Pulse Oximeter Temp 97.5 F Temp Source Temporal Artery Scan Pulse Oximetry (%) 94 Oxygen Delivery Method Room Air Intake Visit Reasons: follow up Intake Note: Leonel presents in the office today for a 6 month follow up and medication review. Patient has prostate ablation on Saturday05/03/2025. Allergies Seasonal Allergies Allergy (Verified 05/06/25 08:51) Itchy eyes, runny nose Medication List - Last Reconciled 05/07/25 by CAM Hansen alfuzosin ER 10 mg PO DAILY aspirin (Adult Low Dose Aspirin) 81 mg PO DAILY finasteride 5 mg PO DAILY 90 days loratadine 10 mg PO DAILY losartan 75 mg (1.5 x 50 mg) PO DAILY 90 days naproxen sodium 440 mg PO DAILY rosuvastatin (Crestor) 20 mg PO DAILY tadalafil 5 mg PO DAILY Tobacco use date assessed: 05/06/25 Dental Screening Dental Screen Date: 05/06/25 Did you have a dental visit in the last 12 months?: Yes Did you have a dental problem in the last 6 months where you did not have access to dental care?: No Was dental information given to patient?: Patient has dentist HPI HPI Comments History of Present Illness Details This is a 74-year-old male with a past medical history of JUAN on CPAP, psoriasis, BPH, vertebral artery stenosis, bilateral carotid artery stenosis, AAA, hyperlipidemia, hypertension and lumbar spinal stenosis presenting for follow up. Lumbar spinal stenosis-patient evaluated at neuro spine clinic. No surgery planned at this time. He saw Cardiology, and he had an echocardiogram on 06/30/2024 which showed normal left ventricular ejection fraction and mildly increased right ventricular cavity size. He had a cardiac stress test with borderline EKG changes versus artifact which was reviewed by the carry in worker, and he was cleared for surgery and nuclear stress test deferred. He denies chest pain or shortness of breath. Hypertension is treated with losartan 75 mg daily. He has peripheral arterial disease and is treated with ASA 81 mg and rosuvastatin 20 mg. One LFTs mildly elevated. He is followed by vascular surgery for mesenteric artery stenosis, abdominal aortic aneurysm, carotid artery stenosis. He saw Nephrology for evaluation of renal artery stenosis. His blood pressure is well-controlled, and his kidney function is good. This is being monitored. Patient has not been using naproxen as he is supposed to be avoiding NSAIDs. BPH and renal cysts are followed by urology. He just underwent GreenLight Laser Enucleation of the prostate 05/03/2025. He has a catheter which is to be removed on Saturday. JUAN-on CPAP. Followed by [facility] pulmonology. [facility]-patient reports last colonoscopy within ten years and was told to return in 10 years. Record requested from [facility]. Patient has a history of mild anemia. White blood cell count, platelet and differential normal. He has normal iron, ferritin and B12 and folate levels. He denies increased fatigue, bleeding, bruising. He has increased iron rich sources in his diet. No fevers, chills, unexplained weight loss or night sweats. I referred him to Gastroenterology since this has been persistent, and I also ordered a Cologuard test which he completed a week ago. The result is pending. He sees Dermatology annually. Received flu vaccine, COVID Did RSV last year. ROS: Constitutional: No unexplained weight loss, fever, chills, fatigue or night sweats. Eyes: No vision changes Respiratory: No shortness of breath, cough or sputum production. Cardiovascular: No chest pain, chest pressure or chest discomfort or palpitations. Gastrointestinal: No anorexia, nausea, vomiting or diarrhea. No abdominal pain Genitourinary: Denies pelvic pain, hematuria, flank pain Neurologic: No headache, dizziness, syncope, ataxia, seizures, tremors. Musculoskeletal: See HPI Hematologic/Lymphatics: No bleeding or bruising. No painful lymph nodes. Skin: No rash or itching. Endocrine: No cold or heat intolerance. No polyuria or polydipsia. Physical exam: Constitutional: Alert, in no distress. Neck: Supple, Full range of motion. No lymphadenopathy. Respiratory: Clear to auscultation. Cardiovascular: S1 S2 regular. No murmurs. No bruits. Gastrointestinal: Abdomen soft, non-tender, non-distended. Normal bowel sounds. No palpable masses. Neurologic: No focal neurological deficits. Extremities: Warm and well perfused. No clubbing, cyanosis or edema. Psychiatric: Normal mood and affect [facility] Medical History (Updated 05/06/25 @ 09:22 by CAM Hansen) Elevated liver enzymes Mesenteric artery stenosis Renal artery stenosis Routine physical examination Renal cyst, left Antibody response exam Abdominal aortic aneurysm Osteopenia Numbness Osteoarthritis Former cigarette smoker Upper back pain Lumbar spinal stenosis Spinal cord lesion Bilateral primary osteoarthritis of hip Bilateral hip pain Low back pain Mild anemia Lightheaded SMITH (dyspnea on exertion) Seasonal allergic rhinitis due to pollen JUAN on CPAP Psoriasis BPH (benign prostatic hyperplasia) Vertebral artery stenosis Bilateral carotid artery stenosis Pure hypercholesterolemia Essential hypertension Surgical History Hx of bilateral inguinal hernia repair (~2019) Hx of colonoscopy Family History (Updated 05/06/25 @ 08:53 by Ligia Rocha CMA) Father Cancer Heart attack Mother High blood pressure Social History (Updated 05/06/25 @ 08:53 by Ligia Rocha CMA) Household Members: Spouse Housing: House Are you a primary pulmonary care nurse to a significant other at home: No Do you presently have visiting nurse or other home services: No Alcohol intake: current Alcohol intake frequency: holidays/special occasions only Patient Tobacco Use Status: Former Tobacco user Cigarette Packs Per Day: 1 Years Smoked: 15 years, hasn't smoked since mid e-Cigarette/Vaping Use: Never Used Second Hand Smoke Exposure: No service: No Current occupational status: retired Cognitive needs: No Hearing needs: No Vision needs: Yes (glasses) Questionnaire Thrive Questionnaire Date Thrive assessed: 10/29/24 I am a: Patient What is your living situation today?: I have a steady place to live Within the past 12 months, did the food you bought not last and you didn't have the money to get more?: Never true Within the past 12 months, did you worry whether your food would run out before you got money to buy more?: Never true Do you have trouble paying for medicines?: No Do you have trouble getting transportation to medical appointments?: No Do you have trouble paying your heating and electricity bill?: No Do you have trouble taking care of your child, family member or friend?: No Do you have trouble with day-to-day activities such as bathing, preparing meals, shopping, managing finances, etc.?: No Are you currently unemployed and looking for a job?: Yes Are you interested in more education?: No Please select the resources that you would like help with: None Currently or been in a relationship where the following occur: No concerns reported THRIVE Score: 0 BENJAMIN-7 AMB Questionnaire BENJAMIN-7 Date BENJAMIN - 7 assessed: 10/29/24 Source: Developed by Drs. Joaquin Naranjo, Adenike Cummins, Mitchel Caldwell and colleagues, with an educational tj from [employer]. Physical exam (Primary Care) Vital Signs: Last Vital Signs Temp 97.5 F 05/06/25 08:53 Pulse 79 05/06/25 08:53 Resp 17 05/06/25 08:53 BP 126/64 05/06/25 08:53 Pulse Ox 94 05/06/25 08:53 Oxygen Delivery Method Room Air 05/06/25 08:53 BMI result Body Mass Index 28.4 Tobacco/Smoking Status: Tobacco use Status Tobacco use date assessed 05/06/25 05/06/25 08:57 Patient Tobacco Use Status Former Tobacco user 05/06/25 08:57 e-Cigarette/Vaping Use Never Used 05/06/25 08:57 Thrive Assessment: Date of Thrive Assessment Date Thrive assessed 10/29/24 05/06/25 08:57 Currently or been in a relationship where the following occur: No concerns reported Coding Level of Care Code Est Pt Level 4 (28431) Complex EM visit Add On G2211 Diagnoses Renal cyst, left N28.1 Abdominal aortic aneurysm I71.40 Lumbar spinal stenosis M48.061 Mild anemia D64.9 JUAN on CPAP G47.33 Benign prostatic hyperplasia with urinary frequency N40.1; R35.0 Lower urinary tract symptom detail: urinary frequency Lower urinary tract symptom presence: symptoms present Bilateral carotid artery stenosis I65.23 Essential hypertension I10 Pure hypercholesterolemia E78.00 Assessment & Plan Assessment & Plan (1) Renal cyst, left: Code(s): N28.1 - Cyst of kidney, acquired Category: Medical Plan: Followed by urology. (2) Abdominal aortic aneurysm: Code(s): I71.40 - Abdominal aortic aneurysm, without rupture, unspecified Category: Medical Plan: Avoid smoking. Blood pressure is well-controlled. Continue losartan. Followed by vascular surgery. (3) Lumbar spinal stenosis: Code(s): M48.061 - Spinal stenosis, lumbar region without neurogenic claudication Category: Medical Plan: Symptoms are stable. He defers surgery at this time. If his symptoms worsen he will contact the neuro spine clinic. (4) Mild anemia: Code(s): D64.9 - Anemia, unspecified Category: Medical Plan: Proceed with referral to Gastroenterology and Cologuard. (5) JUAN on CPAP: Code(s): G47.33 - Obstructive sleep apnea (adult) (pediatric) Category: Medical Plan: Compliant with CPAP (6) BPH (benign prostatic hyperplasia): Code(s): N40.0 - Benign prostatic hyperplasia without lower urinary tract symptoms Category: Medical Qualifiers: Lower urinary tract symptom detail: urinary frequency Lower urinary tract symptom presence: symptoms present Qualified Code(s): N40.1 - Benign prostatic hyperplasia with lower urinary tract symptoms; R35.0 - Frequency of micturition Plan: s/p greenlight procedure (7) Bilateral carotid artery stenosis: Code(s): I65.23 - Occlusion and stenosis of bilateral carotid arteries Category: Medical Plan: Continue baby aspirin and rosuvastatin. Defer increasing rosuvastatin at this time since LFT is mildly elevated since starting it. Patient may also benefit from Plavix however I would like anemia evaluated first since this would increase risk of GI bleed if he is having blood loss from the GI tract. Re-evaluate liver enzymes and screen for hepatitis. If liver enzymes trend up on statin medication we may need to consider alternative like Repatha or Praluent. (8) Essential hypertension: Code(s): I10 - Essential (primary) hypertension Category: Medical Plan: Well-controlled. Continue losartan. (9) Pure hypercholesterolemia: Code(s): E78.00 - Pure hypercholesterolemia, unspecified Category: Medical Plan: Recommended Mediterranean diet. See above notes. Plan Follow up in 6 months. Orders: Orders Liver Panel 2 Months E78.00 - Pure hypercholesterolemia, unspecified, R74.8 - Abnormal levels of other serum enzymes Lipid Panel 2 Months E78.00 - Pure hypercholesterolemia, unspecified, E78.5 - Hyperlipidemia, unspecified, R74.8 - Abnormal levels of other serum enzymes Hepatitis A,B,C Profile 2 Months E78.00 - Pure hypercholesterolemia, unspecified, R74.8 - Abnormal levels of other serum enzymes Hepatitis A IgM 2 Months E78.00 - Pure hypercholesterolemia, unspecified, R74.8 - Abnormal levels of other serum enzymes
[2025-05-06 08:53] VITALS: BP 126/64; PULSE 79; RESP 17; TEMP 36.4; O2SAT 94; BMI 28.4
--- OUTSIDE RECORDS SUMMARY | 2025-05-06 09:30 | XMS_ITS | Clinical Summary ---
Author Organization [address] [facility] Address [address] [place] [address] Phone Care Team Providers Care Barrel Burner Name Role Phone Carl Albright MD Primary Care Provider [phone] Allergies Active Allergy Reactions Criticality Noted Date [...] (07/10/2024): Sleep study 12/05/2010 Sleep Disorder center [facility] Immunizations Immunization Administration Dates Next Due [...] COMMENT: Sleep study 12/05/2010 Sleep Disorder center [facility] BPH (benign prostatic hyperplasia) 01/24/2016 DX:BPH [...] Maintenance Results * Colonoscopy (01/24/2023) Pathologist [facility] Colonoscopy No Interpretation , Abstracted Anatomical Region Laterality Modality Other Result [facility] Provider HEALTH MAINTENANCE Final Result * Annual BMP Blood Test (02/19/2022) [facility] Annual BMP Blood Test Abstracted Result [facility] Provider HEALTH MAINTENANCE Final Result * Lipid panel (02/19/2022) [facility] LDL/HDL Ratio 2 0 - 4 Triglycerides 98 0 - 150 mg/dL Cholesterol 199 0 - 200 mg/dL HDL 82 >=40 mg/dL LDL Cholesterol 98 0 - 100 mg/dL Blood Venous blood specimen / Unknown Result [facility] Provider LAB BLOOD ORDERABLES Henrietta l Result * Hepatitis C Screening (01/25/2016) [facility] Hepatitis C Screening Abstracted [facility] Provider HEALTH MAINTENANCE Final Result * Abdominal Aortic Aneurysm Screen (12/28/2014) Abdominal Aortic Aneurysm (AAA) Screening Abstracted Anatomical Region Laterality Modality Other Historical Provider HEALTH MAINTENANCE Final Result from Last 3 Months or Most Recently Relevant to Health Maintenance Insurance [employer] Care Teams Barrel Burner Relationship Specialty Start Date End Date Carl Albright MD [address] [place] [address] PCP - General Internal Medicine 11/07/21
== END 2025-05-06 09:29 | disposition home or self-care (01) ==
LOC: HO.HMCFM 08:46
PROVIDERS: PCP Physician Assistant Medical; Visit Provider Physician Assistant Medical
DX: N28.1 Cyst of kidney, acquired (principal); I71.40 Abdominal aortic aneurysm, without rupture, unspecified; M48.061 Spinal stenosis, lumbar region without neurogenic claudication; D64.9 Anemia, unspecified; G47.33 Obstructive sleep apnea (adult) (pediatric); N40.1 Benign prostatic hyperplasia with lower urinary tract symptoms; R35.0 Frequency of micturition; I65.23 Occlusion and stenosis of bilateral carotid arteries; I10 Essential (primary) hypertension; E78.00 Pure hypercholesterolemia, unspecified

== ENCOUNTER → 2025-05-06 08:45 | Outpatient (BNVA) | payer MEDICARE, SELFPAY | PROVIDERS: PCP Physician Assistant Medical; Visit Provider Physician Assistant Medical | DX: N28.1 Cyst of kidney, acquired (principal); I71.40 Abdominal aortic aneurysm, without rupture, unspecified; M48.061 Spinal stenosis, lumbar region without neurogenic claudication; D64.9 Anemia, unspecified; G47.33 Obstructive sleep apnea (adult) (pediatric); N40.1 Benign prostatic hyperplasia with lower urinary tract symptoms; R35.0 Frequency of micturition; I65.23 Occlusion and stenosis of bilateral carotid arteries; I10 Essential (primary) hypertension; E78.00 Pure hypercholesterolemia, unspecified; Z79.82 Long term (current) use of aspirin; Z79.899 Other long term (current) drug therapy; Z99.89 Dependence on other enabling machines and devices | CPT/HCPCS: 99212 ==

== ENCOUNTER → 2025-05-10 08:47 | Outpatient (BNVA) | payer MEDICARE, SELFPAY | PROVIDERS: PCP Physician Assistant Medical; Visit Provider Urology | DX: Z48.816 Encounter for surgical aftercare following surgery on the genitourinary system (principal); N40.1 Benign prostatic hyperplasia with lower urinary tract symptoms; R33.9 Retention of urine, unspecified; R35.0 Frequency of micturition; Z98.890 Other specified postprocedural states | CPT/HCPCS: 51700; 51798 ==

== ENCOUNTER 2025-05-26 12:46 | Outpatient (REF) | payer MEDICARE, SELFPAY ==
--- NOTE | ~2025-05-26 | US_ITS ---
CLINICAL HISTORY: I65.23 - Occlusion and stenosis of bilateral carotid arteries US Bilateral Carotid Duplex Comparison: US/SR - US CAROTID DOPPLER BILATERAL - 05/05/2024 10:27 AM EDT Findings: Calcified plaque within the common carotid arteries. Calcified plaque within the carotid bulbs. Normal color doppler and waveforms morphology. Peak systolic velocities: Right CCA: 80 cm/s. Right ICA: 108 cm/s. ICA/CCA ratio: 1.3. Right ECA: 232 cm/s. Right vertebral artery flow antegrade. Left CCA: 143 cm/s. Left ICA: 125 cm/s. ICA/CCA ratio: 0.9. Left ECA: 189 cm/s. Left vertebral artery flow [antegrade. IMPRESSION: Normal carotid velocities, no significant stenosis (0-49% stenosis). This document has been electronically signed by: Iban Little MD on 05/27/2025 09:42:15
--- OUTSIDE RECORDS SUMMARY | 2025-05-26 15:21 | XMS_ITS | Clinical Summary ---
Author Organization [address] [facility] Address [address] [place] [address] Phone Care Team Providers Care Inseam Leveler Name Role Phone Carl Albright MD Primary Care Provider [phone] Allergies Active Allergy Reactions Criticality Noted Date [...] (07/10/2024): Sleep study 12/05/2010 Sleep Disorder center [facility] Immunizations Immunization Administration Dates Next Due [...] COMMENT: Sleep study 12/05/2010 Sleep Disorder center [facility] BPH (benign prostatic hyperplasia) 01/24/2016 [...] Results * Colonoscopy (01/24/2023) Pathologist [facility] Colonoscopy No Interpretation , Abstracted Anatomical Region Laterality Modality Other Result [facility] Provider HEALTH MAINTENANCE Final Result * Annual BMP Blood Test (02/19/2022) [facility] Annual BMP Blood Test Abstracted Result [facility] Provider HEALTH MAINTENANCE Final Result * Lipid panel (02/19/2022) [facility] LDL/HDL Ratio 2 0 - 4 Triglycerides 98 0 - 150 mg/dL Cholesterol 199 0 - 200 mg/dL HDL 82 >=40 mg/dL LDL Cholesterol 98 0 - 100 mg/dL Blood Venous blood specimen / Unknown Result [facility] Provider LAB BLOOD ORDERABLES Henrietta l Result * Hepatitis C Screening (01/25/2016) [facility] Hepatitis C Screening Abstracted [facility] Provider HEALTH MAINTENANCE Final Result * Abdominal Aortic Aneurysm Screen (12/28/2014) Abdominal Aortic Aneurysm (AAA) Screening Abstracted Anatomical Region Laterality Modality Other Historical Provider HEALTH MAINTENANCE Final Result from Last 3 Months or Most Recently Relevant to Health Maintenance Insurance [employer] Care Teams Inseam Leveler Relationship Specialty Start Date End Date Carl Albright MD [address] [place] [address] PCP - General Internal Medicine 11/07/21
== END 2025-05-26 12:47 | disposition home or self-care (01) ==
LOC: HO.US 12:46
PROVIDERS: PCP Physician Assistant Medical; Visit Provider Physician Assistant Surgical
DX: I65.23 Occlusion and stenosis of bilateral carotid arteries (principal)
CPT/HCPCS: 93880

== ENCOUNTER → 2025-05-26 12:47 | Outpatient (BNV) | payer MEDICARE, SELFPAY | PROVIDERS: PCP Physician Assistant Medical; Visit Provider Specialist | DX: I65.23 Occlusion and stenosis of bilateral carotid arteries (principal) | CPT/HCPCS: 93880 ==

== ENCOUNTER 2025-06-15 13:38 | Outpatient (AMB) | payer MEDICARE, SELFPAY ==
--- NOTE | 2025-06-15 13:44 | MHC.OFFVIS ---
Intake Visit Reasons: Greenlight follow up (NO UA SET) Intake Note: Patient is present for PostOp Green light Urology Medication:TADALAFIL,ALFUZOSIN,FINASTERIDE Antibiotic Allergy:NONE Blood Thinner:ASPIRIN TODAY'S PVR:158 ML'S Tactical Debriefer Required: No Accompanied by: Self / Same As Patient Allergies Seasonal Allergies Allergy (Verified 06/15/25 13:45) Itchy eyes, runny nose HPI Comments Details: Saurabh is a pleasant male. He is a patient of Dr. Ayers. He is seen for the following urologic conditions - bladder outlet obstruction Follow-up GreenLight laser Significant improvement in stream Resolving nocturia Good control Happy he had procedure Bladder outlet obstruction Progressive Bladder ultrasound 60 g prostate Known aortic aneurysm Continue finasteride for next six-month Alpha-yves can be stopped [facility] Medical History (Updated 05/06/25 @ 09:22 by CAM Hansen) Elevated liver enzymes Mesenteric artery stenosis Renal artery stenosis Routine physical examination Renal cyst, left Antibody response exam Abdominal aortic aneurysm Osteopenia Numbness Osteoarthritis Former cigarette smoker Upper back pain Lumbar spinal stenosis Spinal cord lesion Bilateral primary osteoarthritis of hip Bilateral hip pain Low back pain Mild anemia Lightheaded SMITH (dyspnea on exertion) Seasonal allergic rhinitis due to pollen JUAN on CPAP Psoriasis BPH (benign prostatic hyperplasia) Vertebral artery stenosis Bilateral carotid artery stenosis Pure hypercholesterolemia Essential hypertension Surgical History Hx of bilateral inguinal hernia repair (~2019) Hx of colonoscopy Family History (Updated 05/06/25 @ 08:53 by Ligia Rocha CMA) Father Cancer Heart attack Mother High blood pressure Social History (Updated 05/06/25 @ 08:53 by Ligia Rocha CMA) Household Members: Spouse Housing: House Are you a primary emergency care attendant to a significant other at home: No Do you presently have visiting nurse or other home services: No Alcohol intake: current Alcohol intake frequency: holidays/special occasions only Patient Tobacco Use Status: Former Tobacco user Cigarette Packs Per Day: 1 Years Smoked: 15 years, hasn't smoked since mid e-Cigarette/Vaping Use: Never Used Second Hand Smoke Exposure: No service: No Current occupational status: retired Cognitive needs: No Hearing needs: No Vision needs: Yes (glasses) Review of Systems Const Denies chills and Denies fever(s) Card Reports no additional complaints and Denies syncope Resp Denies cough GI Denies abdominal pain and Denies heartburn Reports as per HPI and Denies change in libido Neuro Denies syncope Psych Denies change in libido Endo Denies change in libido Physical Exam Const General: cooperative, healthy appearing, comfortable and no acute distress Orientation/consciousness: patient oriented x3 HEENT Face and sinus: Yes normal facial exam Mouth: moist mucous membranes Neck Neck: Yes normal visual inspection, Yes full ROM and Yes trachea midline Chest Chest palpation & inspection: normal inspection of the chest Resp Effort & Inspection: normal respiratory effort, able to speak in complete sentences and no respiratory distress GI Inspection: Yes normal to inspection Back/Spine/Pelvis Cervical Spine: normal cervical lordosis Thoracic/Lumbar Spine: thoracic and lumbar spine normal to inspection Skin General skin exam: no rashes or lesions noted Neuro General: patient oriented x3, gait normal, tone normal and moves all extremities Extrem General: Yes normal to inspection and Yes capillary refill normal Office Procedures Post Void Residual Post Residual Void Post Void Residual (PVR): 158 [id number] Void Residual by ultrasound Assessment & Plan Assessment & Plan (1) Enlarged prostate: Code(s): N40.0 - Benign prostatic hyperplasia without lower urinary tract symptoms Category: Medical (2) Incomplete bladder emptying: Code(s): R33.9 - Retention of urine, unspecified Category: Medical Plan Six-month follow-up PSA Orders: Orders AMB Post Void Residual by ultrasound Today N40.1 - Benign prostatic hyperplasia with lower urinary tract symptoms, R35.0 - Frequency of micturition Medications: Discontinued alfuzosin ER Administer after the same meal each day Discontinued Reason: Doctor's Order 10 mg PO DAILY 90 tabs 1RF Patient Instructions: This note is constructed using voice recognition software. While every effort has been made to ensure accuracy ppap coordinator errors may have been included. Imaging studies, laboratory and physical exam results were discussed and reviewed in detail. No major barriers to patient understanding were identified. An opportunity to ask questions regarding the treatment plan was provided. All questions were answered. The patient expressed understanding and agreement with the above treatment plan. The patient is aware they should contact our office by phone for worsening of their current condition or the appearance of new urologic symptoms. Compliance is encouraged with any medications and followup testing that is ordered. It is a privilege to participate in the urologic care of your patient. If you have any questions or concerns regarding treatment for the above conditions, or other urologic issues, please do not hesitate to contact me. The office telephone contact is [phone]. Sincerely, Dr Primitivo Bañuelos MD, [facility] - Urology Compassionate Specialist Care for the Genitourinary System Coding Level of Care Code Est Pt Level 3 (70775) Complex visit Add On G2211 Diagnoses Enlarged prostate N40.0 Incomplete bladder emptying R33.9 CPT Codes Post Residual Void - PVR CPT Code: [id number]-[id number] Void Residual by ultrasound ([id number])
== END 2025-06-15 15:04 | disposition home or self-care (01) ==
LOC: HO.HUSH 13:39
PROVIDERS: PCP Physician Assistant Medical; Visit Provider Urology
DX: N40.0 Benign prostatic hyperplasia without lower urinary tract symptoms (principal); R33.9 Retention of urine, unspecified
CPT/HCPCS: 99024

== ENCOUNTER → 2025-06-15 13:38 | Outpatient (BNVA) | payer MEDICARE, SELFPAY | PROVIDERS: PCP Physician Assistant Medical; Visit Provider Urology | DX: N40.0 Benign prostatic hyperplasia without lower urinary tract symptoms (principal); R35.0 Frequency of micturition; R33.9 Retention of urine, unspecified | CPT/HCPCS: 51798; 99212 ==

== ENCOUNTER 2025-07-14 11:45 | Outpatient (AMB) | payer MEDICARE, SELFPAY ==
[2025-07-14 11:47] VITALS: BMI 28.4
--- NOTE | 2025-07-14 11:47 | MHC.OFFVIS ---
Vital Signs 07/14/25 11:47 Height 5 ft 9 in Weight 192 lb BMI 28.4 Intake Visit Reasons: 1 year follow up s/p Carotid US 05/27/25 Intake Note: 1 yr follow up carotid US 05/26/25. Pt states no blurred vision, dizziness or loss of balance Form Builder Helper Required: No Accompanied by: Self / Same As Patient Allergies Seasonal Allergies Allergy (Verified 07/14/25 11:49) Itchy eyes, runny nose HPI HPI 1 year follow up s/p Carotid US 05/27/25: Details: The patient is a 75 year old male presenting for follow-up and monitoring of his carotid artery stenosis. Surveillance for this condition began a couple of years ago after he experienced a serious dizzy spell and nearly passed out while working out. He was evaluated in the hospital at that time, and imaging revealed a clogged carotid artery. He has had no further syncopal episodes since then and believes the initial event was due to his blood pressure medication dose being too high, which was subsequently adjusted. The patient also reports a history of an abdominal aortic aneurysm, which was discovered during a scan of his renal arteries. This was noted on CT scan dated 12/02/2024 The patient is not diabetic. He has a remote history of smoking for 10-15 years but quit around 1984. He now presents for vascular follow-up. In general feels well. [facility] Medical History Elevated liver enzymes Mesenteric artery stenosis Renal artery stenosis Routine physical examination Renal cyst, left Antibody response exam Abdominal aortic aneurysm Osteopenia Numbness Osteoarthritis Former cigarette smoker Upper back pain Lumbar spinal stenosis Spinal cord lesion Bilateral primary osteoarthritis of hip Bilateral hip pain Low back pain Mild anemia Lightheaded SMITH (dyspnea on exertion) Seasonal allergic rhinitis due to pollen JUAN on CPAP Psoriasis BPH (benign prostatic hyperplasia) Vertebral artery stenosis Bilateral carotid artery stenosis Pure hypercholesterolemia Essential hypertension Surgical History Hx of bilateral inguinal hernia repair (~2019) Hx of colonoscopy Family History Father Cancer Heart attack Mother High blood pressure Social History Household Members: Spouse Housing: House Are you a primary transitions rn care coordinator to a significant other at home: No Do you presently have visiting nurse or other home services: No Alcohol intake: current Alcohol intake frequency: holidays/special occasions only Patient Tobacco Use Status: Former Tobacco user Cigarette Packs Per Day: 1 Years Smoked: 15 years, hasn't smoked since mid e-Cigarette/Vaping Use: Never Used Second Hand Smoke Exposure: No service: No Current occupational status: retired Cognitive needs: No Hearing needs: No Vision needs: Yes (glasses) Review of Systems Const All systems reviewed & are unremarkable except as noted in HPI and below Reports no additional complaints ENT Reports Normal hearing present Card Denies chest pain, Denies chest pain at rest, Denies chest pain with activity and Denies pedal edema Resp Denies cough GI Denies abdominal pain Musc Denies abnormal gait, Denies muscle cramps and Denies radiating pain into limb Skin/Breast Denies skin ulcer and Denies wounds Neuro Reports Normal hearing present and Denies abnormal gait Psych Reports no additional complaints Physical Exam Vital Signs: BMI result Body Mass Index 28.4 Const General: cooperative, healthy appearing and comfortable Orientation/consciousness: oriented to person, oriented to place and oriented to time HEENT Head: Yes normal to inspection Neck Neck: Yes normal visual inspection Carotids: no bruits Chest Chest palpation & inspection: normal inspection of the chest Resp Effort & Inspection: normal respiratory effort and able to speak in complete sentences Auscultation: clear to auscultation bilaterally, no crackles, no rales, no rhonchi and no wheezes Cardio Rate: regular rate Rhythm: regular rhythm Heart sounds: S1 normal heart sound present and S2 normal heart sound present Bruits: no carotid bruits Peripheral pulses: Peripheral pulses 2+ throughout GI Inspection: Yes normal to inspection Skin Wounds: no wounds Hair: normal Neuro General: oriented to person, oriented to place and oriented to time Cranial nerves: Yes CN's II-XII intact bilaterally and Yes Normal hearing present Cognition (Neuro): normal cognition Motor exam (neuro): 5/5 motor strength present throughout Extrem Other: venous exam: No significant superficial varicosities or spider telangiectasias, minimal edema General: No clubbing, No cyanosis and No edema Psych Appearance: grossly normal Mental Status: mental status grossly normal Speech and movement: Normal speech and movement present Results Reviewed Results Reviewed: Carotid ultrasound dated 05/26/2025 demonstrates bilateral 0-49% stenosis CT scan of the abdomen dated 12/02/2024 demonstrates severe atherosclerotic changes at the origin of renal arteries. Aortic aneurysm of 3.6 cm. Assessment & Plan Assessment & Plan (1) Bilateral carotid artery stenosis: Code(s): I65.23 - Occlusion and stenosis of bilateral carotid arteries Category: Medical Plan: In short carotid arteries are within normal limits. We did discuss the pathophysiology of carotid disease and stroke. We do believe the initial event back in 2021 was related to blood pressure medication. He has had no episodes since. Would not follow this any further. His last 2 ultrasounds were within normal limits which were a year apart. (2) Bilateral renal artery stenosis: Code(s): I70.1 - Atherosclerosis of renal artery Category: Medical Plan: He is following nephrology. CT scan does demonstrate high-grade stenosis of bilateral renal arteries. At the current time he does report his blood pressure is stable. In addition his last GFR is greater than 60. (3) Abdominal aortic aneurysm (AAA) without rupture: Code(s): I71.40 - Abdominal aortic aneurysm, without rupture, unspecified Category: Medical Plan: In short patient has radiologic evidence of a AAA on CT scan of 3.6 cm. We have discussed the pathophysiology of aortic aneurysms and the risk of ruptures. We have discussed rupture risk based on size. In addition we have discussed conservative measures and risk factor modification for prevention of increase in size of the aneurysm. the patient is scheduled for surveillance follow-up in approximately 1 year. Thank you for allowing us to participate in the care of this patient Orders: Orders US abdominal aortic aneurysm 1 Year I71.40 - Abdominal aortic aneurysm, without rupture, unspecified Coding Level of Care Code Est Pt Level 4 (55187) Add On Problem Visit Only Diagnoses Bilateral carotid artery stenosis I65.23 Bilateral renal artery stenosis I70.1 Abdominal aortic aneurysm (AAA) without rupture I71.40
--- OUTSIDE RECORDS SUMMARY | 2025-07-14 13:30 | XMS_ITS | Clinical Summary ---
Author Organization [address] [facility] Address [address] [place] [address] Phone Care Team Providers Care Customer Assistant Name Role Phone Carl Albright MD Primary Care Provider [phone] Allergies Active Allergy Reactions Criticality Noted Date [...] (07/10/2024): Sleep study 12/05/2010 Sleep Disorder center [facility] Immunizations Immunization Administration Dates Next Due Pneumococcal [...] COMMENT: Sleep study 12/05/2010 Sleep Disorder center [facility] BPH (benign prostatic hyperplasia) 01/24/2016 [...] on file Sexual Orientation Not on file Last Filed Vital Signs Vital Sign Reading [...] 02/19/2027 02/19/2022 Abdominal Aortic Aneurysm (AAA) Screen Discontinued 12/28/2014 Hepatitis C Screening Completed 01/25/2016 Pneumococcal [...] Health Maintenance Results * Colonoscopy (01/24/2023) Pathologist [facility] Colonoscopy No Interpretation , Abstracted Anatomical Region Laterality Modality Other [facility] Provider HEALTH MAINTENANCE Final Result * Annual BMP Blood Test (02/19/2022) Pathologist [facility] Annual BMP Blood Test Abstracted [facility] Provider HEALTH MAINTENANCE Final Result * Lipid panel (02/19/2022) [facility] LDL/HDL Ratio 2 0 - 4 Triglycerides 98 0 - 150 mg/dL Cholesterol 199 0 - 200 mg/dL HDL 82 >=40 mg/dL LDL Cholesterol 98 0 - 100 mg/dL Blood Venous blood specimen / Unknown [facility] Provider LAB BLOOD ORDERABLES Henrietta l Result * Hepatitis C Screening (01/25/2016) Pathologist [facility] Hepatitis C Screening Abstracted [facility] Provider HEALTH MAINTENANCE Final Result * Abdominal Aortic Aneurysm Screen (12/28/2014) Abdominal Aortic Aneurysm (AAA) Screening Abstracted Anatomical Region Laterality Modality Other Historical Provider HEALTH MAINTENANCE Final Result from Last 3 Months or Most Recently Relevant to Health Maintenance Insurance [employer] MED[employer] Care Teams Customer Assistant Relationship Specialty Start Date End Date Carl Albright MD [address] [place] [address] PCP - General Internal Medicine 11/07/21
== END 2025-07-14 12:58 | disposition home or self-care (01) ==
LOC: HO.HVS 11:46
PROVIDERS: PCP Physician Assistant Medical; Visit Provider Surgery Vascular Surgery
DX: I65.23 Occlusion and stenosis of bilateral carotid arteries (principal); I70.1 Atherosclerosis of renal artery; I71.40 Abdominal aortic aneurysm, without rupture, unspecified
CPT/HCPCS: 99214; G2211

== ENCOUNTER → 2025-07-14 11:45 | Outpatient (BNVA) | payer MEDICARE, SELFPAY | PROVIDERS: PCP Physician Assistant Medical; Visit Provider Surgery Vascular Surgery | DX: I65.23 Occlusion and stenosis of bilateral carotid arteries (principal); I70.1 Atherosclerosis of renal artery; I10 Essential (primary) hypertension; Z87.891 Personal history of nicotine dependence; I71.40 Abdominal aortic aneurysm, without rupture, unspecified | CPT/HCPCS: 99212 ==